=== PATIENT | female | born 1985 | race Caucasian/White ===

== ENCOUNTER 2017-02-13 18:38 | Inpatient (IN) | payer BC ==
[~2017-02-13] VITALS: Ht 160 cm; Wt 91.7 kg
[~2017-02-13 18:38] MED LIST: AGM875T PO; ALBU0.632 IH; ALBU8.5H2 IH; B12; BUTA1CAP39 PO; CA C1TAB75 PO; CALC-69 PO; CEFD300C3 PO; CNC1KV IM; CYAN100021 PO; CYCL10TA9 PO; GABA600T2 PO; HYDR-757 PO; MEDR10TA PO; MULT-974 PO; OMG1KC; POTA99TA15 PO; PRD20T PO; SLMFT1E; TRIA16.5 NS; TRM50T PO; Tramadol; [UNRECOGNIZED DRUG - OTHER]; anti anxiety; potassium
[2017-02-13 20:45] VITALS: BP 126/80
[2017-02-13] MEDS ORDERED: LORazepam INJ 2 MG/ML (ATIVAN) VIAL IVP PRN (21:15)
[2017-02-13] MEDS ORDERED: D5 NS W/KCL 20 MEQ/L 1,000 ML IV ONE (21:46)
[2017-02-13] MEDS: D5 NS W/KCL 20 MEQ/L 1,000 ML IV SCH (22:03)
[2017-02-13] MEDS: HYDROmorphone (DILAUDID) 2 MG/ML VIAL IVP PRN (22:04)
[2017-02-13] MEDS: ONDANSETRON 4 MG/2 ML (SDV) Z0FRAN IVP PRN (22:04)
[2017-02-13] MEDS ORDERED: RT-ALBUTEROL SULF 2.5 MG/3 ML PRE-MIX VIAL IH PRN (22:15)
[2017-02-14] VITALS: BP 110/76
[2017-02-14] MEDS ORDERED: OMEP20TA33 PO ×2 (01:05)
[2017-02-14] MEDS ORDERED: DULO30CA3 PO (01:05)
[2017-02-14] MEDS ORDERED: TOLT2TAB5 PO (01:05)
[2017-02-14] MEDS ORDERED: RT-ALBUINH IH (01:05)
[2017-02-14] MEDS ORDERED: GABA800T2 PO (01:05)
[2017-02-14] MEDS ORDERED: ALPR1TAB2 PO (01:05)
[2017-02-14] MEDS ORDERED: OXYC10TA85 PO ×2 (01:05→13:56)
[2017-02-14] MEDS ORDERED: FLUT1DIS26 IH (01:05)
[2017-02-14] MEDS: RT-ALBUTEROL SULF 2.5 MG/3 ML PRE-MIX VIAL IH SCH ×4 (01:31→14:29)
[2017-02-14] MEDS: HYDROmorphone (DILAUDID) 2 MG/ML VIAL IVP PRN (02:21)
[2017-02-14 04:00] VITALS: BP 114/62
[2017-02-14] MEDS: D5 NS W/KCL 20 MEQ/L 1,000 ML IV SCH ×2 (05:07→11:39)
[2017-02-14 05:18] LABS: BASOPHILS % (AUTO) 0 % (0-10); EOSINOPHILS # (AUTO) 0.8 10^3/uL (0.0-0.3); EOSINOPHILS % (AUTO) 13 % (0-10); LYMPHOCYTES # (AUTO) 1.5 X 10^3 (1.0-4.0); LYMPHOCYTES % (AUTO) 25 % (12-44); MEAN CORPUSCULAR HEMOGLOBIN 28 PG (25-34); MEAN CORPUSCULAR HGB CONC 30 G/DL (32-36); MEAN CORPUSCULAR VOLUME 91 FL (80-99); MEAN PLATELET VOLUME 9.5 FL (7.4-10.4); MONOCYTES # (AUTO) 0.4 X 10^3 (0.0-1.0); MONOCYTES % (AUTO) 7 % (0-12); NEUTROPHILS # (AUTO) 3.3 X 10^3 (1.8-7.8); NEUTROPHILS % (AUTO) 55 % (42-75); PLATELET COUNT 302 10^3/uL (130-400); RED BLOOD COUNT 3.95 10^6/uL (4.35-5.85); RED CELL DISTRIBUTION WIDTH 15.1 % (10.0-14.5)
[2017-02-14 05:41] LABS: ALANINE AMINOTRANSFERASE 23 U/L (0-55); ALBUMIN 3.7 GM/DL (3.2-4.5); ANION GAP 9 MMOL/L (5-14); ASPARTATE AMINO TRANSFERASE 26 U/L (5-34); BILIRUBIN,TOTAL 0.6 MG/DL (0.1-1.0); BLOOD UREA NITROGEN 7 MG/DL (7-18); BUN/CREATININE RATIO 9; CALCIUM 9.3 MG/DL (8.5-10.1); CARBON DIOXIDE 26 MMOL/L (21-32); CHLORIDE 108 MMOL/L (98-107); CREATININE SERUM 0.74 MG/DL (0.60-1.30); GFR ESTIMATED > 60; GLUCOSE 99 MG/DL (70-105); POTASSIUM 4.3 MMOL/L (3.6-5.0); SODIUM 143 MMOL/L (135-145); TOTAL PROTEIN 6.5 GM/DL (6.4-8.2)
[2017-02-14 08:00] VITALS: BP 120/78
[2017-02-14] MEDS ORDERED: RT-ADVAIR HFA 115/21 MCG PER PUFF IH SCH (08:00)
[2017-02-14] MEDS: ONDANSETRON 4 MG/2 ML (SDV) Z0FRAN IVP PRN (08:34)
--- NOTE | 2017-02-14 08:41 | History & Physical-Hospitalist ---
HPI History of Present Illness: HPI/Chief Complaint Ms. Samuel is a 31-year-old white female who states that she had not had a bowel movement in 2 weeks which is unusual for her. 4 days ago she then developed cramping mostly right upper quadrant abdominal pain. It got progressively worse with increasing abdominal distention causing her to present to the [facility] emergency room. There KUB reportedly revealed multiple dilated distended loops of bowel with air fluid levels suspicious for small bowel obstruction. They did not have surgical coverage this weekend so I was contacted and accepted the patient in transfer. An NG tube was placed to low intermittent suction and over the night patient reports she had 4 bowel movements with resolution of distention. She also has not had any abdominal pain for the past 4 hours for reports a severe throbbing right sided headache compatible with the usual migraine that she gets without aura. She blames this on Dilaudid and reports that Fioricet is only thing that takes care of her migraine headaches. She's had no past history of bowel obstruction but does have a past history of total abdominal hysterectomy last year 3 C-sections and some form of gastric surgery for weight loss. She denies chills or fever complaining about her headache and throat irritation from her NG tube. Date Seen 02/14/17 Time Seen by Provider: 07:00 Attending Physician Theodore Doan MD PCP Onel Villra MD Referring Physician Date of Admission Feb 13, 2017 at 20:47 Home Medications & Allergies Home Medications Reviewed patient Home Medication Reconciliation Form Allergies Allergies Coded Allergies latex (Unverified Allergy, Mild, HIVES, 10/06/10) NSAIDS (Non-Steroidal Anti-Inflamma (Verified Allergy, Unknown, 04/26/15) Past Mbgrhcp-Sevwjw-Qkptcq Hx Patient Social History Alcohol Use: Denies Use Recreational Drug Use: No Smoking Status: Former Smoker Physical Abuse Screen: No Sexual Abuse: No Recent Foreign Travel: No Contact w/other who traveled: No Recent Infectious Disease Expo: No Immunizations Up To Date Tetanus Booster (TDap): Less than 5yrs Date of Pneumonia Vaccine: Apr 21, 2016 Date of Influenza Vaccine: Feb 19, 2014 Seasonal Allergies Seasonal Allergies: No Surgeries Yes (GASTRIC BYPASS, D&C, x 3) Abdominal, Section, Gallbladder, Tubal Ligation Respiratory Yes Currently Using BIPAP: No Cardiovascular No Neurological Yes (water on the brain at ) Headaches /Migraines Reproductive System Hx Reproductive Disorders: No Female Reproductive Disorders: Menstrual Problems Genitourinary No Gastrointestinal Yes (GASTRIC BYPASS) Irritable Bowel Musculoskeletal Yes (age 12 back pain began) Degenerate Disk Disease, Chronic Back Pain Endocrine History of Endocrine Disorders: No HEENT History of HEENT Disorders: No Cancer No Psychosocial History of Psychiatric Problem: Yes Behavioral Health Disorders: Anxiety, PTSD Integumentary History of Skin or Integumenta: No Blood Transfusions History of Blood Disorders: No Adverse Reaction to a Blood Tr: No Family Medical History Significant Family History: No Pertinent Family Hx Review of Systems Constitutional: see HPI Respiratory: no symptoms reported, No see HPI, No cough, No dyspnea on exertion , No hemoptysis, No orthopnea, No phlegm, No short of breath Gastrointestinal: see HPI, abdominal pain (RUQ), constipation, loss of appetite : No Physical Exam Physical Exam Vital Signs Vital Sign - Last 12Hours 02/13/17 02/14/17 20:45 01:31 Temp 97.9 Pulse 90 Resp 20 B/P (MAP) 126/80 Pulse Ox 98 O2 Delivery Room Air O2 Flow Rate 3.00 Capillary Refill : General Appearance: Mild Distress, Obese HEENT: PERRL/EOMI, Normal ENT Inspection Neck: Full Range of Motion, Normal Inspection, Non Tender, Supple Respiratory: Chest Non Tender, Lungs Clear, Normal Breath Sounds, No Accessory Muscle Use, No Respiratory Distress Cardiovascular: Regular Rate, Rhythm, No Edema, No Gallop, No JVD, No Murmur, Normal Peripheral Pulses Gastrointestinal: Normal Bowel Sounds, No Organomegaly, No Pulsatile Mass, Non Tender, Soft Neurologic/Psychiatric: Alert, Oriented x3, No Motor/Sensory Deficits Skin: Pallor Results Results/Procedures Lab Laboratory Tests 02/14/17 04:47 Assessment/Plan Admission Diagnosis 1. Presumed small bowel obstruction resolved this morning with an unremarkable abdominal examination with the patient passing stool. Will DC NG tube and advance to clear liquids and then as tolerated. 2. Acute migraine headache we'll give the patient Fioricet and DC Dilauded in addition to a dose of IV Zofran now. Clinical Quality Measures DVT/VTE Risk/Contraindication: Risk Factor Score Per Nursin RFS Level Per Nursing on Admit: 1=Low/No VTE PPX THEODORE DOAN MD Feb 14, 2017 08:41
[2017-02-14] MEDS ORDERED: fentaNYL INJECTION 100 MCG/2 ML AMP IVP PRN (08:45)
[2017-02-14] MEDS: ACET/BUTAL/CAFF (FIORICET) TAB PO PRN ×2 (09:44→14:26)
--- NOTE | 2017-02-14 11:21 | Diagnostic Imaging Report ---
INDICATION: Bowel obstruction. Followup. FINDINGS: The upright chest shows normal heart size. There is bibasilar discoid atelectasis. Supine and upright views of the abdomen shows air-filled loops of nondilated large and small bowel in a nonspecific nonobstructive pattern. No intramural or free intraperitoneal air is seen. No mass or calculus is seen. There is no bony abnormality. IMPRESSION: The bowel gas pattern is consistent with a mild ileus. There is bibasilar discoid atelectasis. Dictated by: Dictated on workstation # [id number]
--- NOTE | 2017-02-14 11:55 | Consultation ---
History of Present Illness History of Present Illness Patient Consulted On(sabina/time) 02/14/17 11:50 Time Seen by Provider: 10:51 History of Present Illness Surgery asked to consult regarding PSBO. HPI: Patient is a 31-year-old white female who was transferred from outside hospital with chief complaint of no bowel movement in 2 weeks; which is unusual for her. Then 4 days ago she developed cramping mostly right upper quadrant abdominal pain. It got progressively worse with increasing abdominal distention and vomiting; causing her to go to the [place] emergency room. Physicians there read KUB as - revealing multiple dilated distended loops of bowel with air fluid levels suspicious for small bowel obstruction. They did not have surgical coverage so Hospitalist accepted the patient in transfer. An NG tube was placed to low intermittent suction and over the night patient reports "I was in the bathroom all night going"; now with resolution of distention. She also has not had any abdominal pain since somewhere around 4 or 5 am. NGT was D/C'd prior to me seeing her. Per Medicine: She does complain of a severe throbbing right sided headache compatible with the usual migraine that she gets without aura. She blames this on Dilaudid and reports that Fioricet is only thing that takes care of her migraine headaches. She's had no past history of bowel obstruction but does have a past history of total abdominal hysterectomy last year 3 C-sections and some form of gastric surgery for weight loss. She denies chills or fever complaining about her headache and throat irritation from her NG tube. Allergies and Home Medications Allergies Coded Allergies: latex (Unverified Allergy, Mild, HIVES, 10/06/10) NSAIDS (Non-Steroidal Anti-Inflamma (Verified Allergy, Unknown, 04/26/15) Home Medications Albuterol Sulfate 1 Puff Puff, 1 PUFF IH Q4H, (Reported) 1 PUFF = 90 MCG Alprazolam 1 Mg Tablet, 1 MG PO TID, (Reported) Duloxetine HCl 30 Mg Capsule.dr, 30 MG PO DAILY, (Reported) Fluticasone/Salmeterol 1 Each Blst.w.dev, 2 EACH IH BID, (Reported) Gabapentin 800 Mg Tablet, 800 MG PO TID, (Reported) Omeprazole Magnesium 20 Mg Tablet.dr, 20 MG PO DAILY, (Reported) Omeprazole Magnesium 20 Mg Tablet.dr, 20 MG PO DAILY, (Reported) Oxycodone HCl 10 Mg Tab.er.12h, 10 MG PO BID, (Reported) Tolterodine Tartrate 2 Mg Tablet, 2 MG PO HS, (Reported) Past Vjhbllr-Ksyfgv-Osfuyn Hx Patient Social History Alcohol Use: Denies Use Recreational Drug Use: No Smoking Status: Former Smoker Recent Foreign Travel: No Contact w/Someone Who Travel: No Recent Infectious Disease Expo: No Physical Abuse Screen: No Sexual Abuse: No Immunizations Up To Date Tetanus Booster (TDap): Less than 5yrs Date of Pneumonia Vaccine: Apr 21, 2016 Date of Influenza Vaccine: Feb 19, 2014 Seasonal Allergies Seasonal Allergies: No Surgeries History of Surgeries: Yes (GASTRIC BYPASS, D&C, x 3) Surgeries: Abdominal, Section, Gallbladder, Tubal Ligation Respiratory History of Respiratory Disorde: Yes Respiratory Disorders: Asthma, COPD Cardiovascular History of Cardiac Disorders: No Neurological History of Neurological Disord: Yes (water on the brain at ) Neurological Disorders: Headaches /Migraines Reproductive System Hx Reproductive Disorders: No Female Reproductive Disorders: Menstrual Problems Genitourinary History of Genitourinary Disor: No Gastrointestinal History of Gastrointestinal Di: Yes (GASTRIC BYPASS) Gastrointestinal Disorders: Irritable Bowel Musculoskeletal History of Musculoskeletal Dis: Yes (age 12 back pain began) Musculoskeletal Disorders: Degenerate Disk Disease, Chronic Back Pain Endocrine History of Endocrine Disorders: No HEENT History of HEENT Disorders: No Cancer History of Cancer: No Psychosocial History of Psychiatric Problem: Yes Behavioral Health Disorders: Anxiety, PTSD Integumentary History of Skin or Integumenta: No Blood Transfusions History of Blood Disorders: No Adverse Reaction to a Blood Tr: No Family Medical History Significant Family History: CAD Under 55 Years Old (father), Other Conditions/ Hx (other family members with Gallbladder disease) Review of Systems-General Constitutional: No chills, No fever, malaise, weight loss EENTM: No blurred vision, No dental problems, No epistaxis, No throat swelling Respiratory: No cough, No dyspnea on exertion, No hemoptysis Cardiovascular: No chest pain, No edema, No palpitations Gastrointestinal: RUQ, abdominal pain, constipation, nausea, vomiting Genitourinary: No dysuria, No frequency, No hematuria Musculoskeletal: back pain, joint pain, joint swelling, muscle stiffness, muscle cramps Skin: No change in color, No change in hair/nails Psychiatric/Neurological: Anxiety, Depressed, Emotional Problems, Headache, Denies Seizure, Denies Weakness Other pt denies any abnormal bruising or bleeding. Physical Exam-General Problems Physical Exam Vital Signs Vital Sign - Last 12Hours 02/13/17 02/14/17 20:45 01:31 Temp 97.9 Pulse 90 Resp 20 B/P (MAP) 126/80 Pulse Ox 98 O2 Delivery Room Air O2 Flow Rate 3.00 Capillary Refill : General Appearance: WD/WN, no apparent distress Eyes: Bilateral Eye PERRL, Bilateral Eye EOMI HEENT: pharynx normal, No scleral icterus (R), No scleral icterus (L) Neck: non-tender, full range of motion, supple Respiratory: chest non-tender, lungs clear, normal breath sounds, no respiratory distress, no accessory muscle use Cardiovascular: regular rate, rhythm, no edema, no murmur Gastrointestinal: normal bowel sounds, non tender, soft, no organomegaly, no pulsatile mass Rectal: deferred Back: no CVA tenderness, no vertebral tenderness Extremities: no pedal edema, no calf tenderness Neurologic/Psychiatric: confectionery cooker II-XII nml as tested, no motor/sensory deficits, alert, normal mood/affect, oriented x 3 Skin: normal color, warm/dry Lymphatic: no adenopathy (neck, axilla or groin) Data Review Labs Laboratory Tests 02/14/17 04:47: White Blood Count 6.0, Red Blood Count 3.95L, Hemoglobin 10.9L, Hematocrit 36, Mean Corpuscular Volume 91, Mean Corpuscular Hemoglobin 28, Mean Corpuscular Hemoglobin Concent 30L, Red Cell Distribution Width 15.1H, Platelet Count 302, Mean Platelet Volume 9.5, Neutrophils (%) (Auto) 55, Lymphocytes (%) (Auto) 25, Monocytes (%) (Auto) 7, Eosinophils (%) (Auto) 13H, Basophils (%) (Auto) 0, Neutrophils # (Auto) 3.3, Lymphocytes # (Auto) 1.5, Monocytes # (Auto) 0.4, Eosinophils # (Auto) 0.8H, Basophils # (Auto) 0.0, Sodium Level 143, Potassium Level 4.3, Chloride Level 108H, Carbon Dioxide Level 26, Anion Gap 9, Blood Urea Nitrogen 7, Creatinine 0.74, Estimat Glomerular Filtration Rate > 60, BUN/ Creatinine Ratio 9, Glucose Level 99, Calcium Level 9.3, Total Bilirubin 0.6, Aspartate Amino Transf (AST/SGOT) 26, Alanine Aminotransferase (ALT/SGPT) 23, Alkaline Phosphatase 68, Total Protein 6.5, Albumin 3.7 Assessment/Plan Assessment/Plan Assessment/Plan PSBO - now completely resolved. NGT has already been removed and she has been taking in a lot of clear liquids already. Ok to DC home from surgery perspective. No need to repeat AAS. Follow up as outpt with her primary doctor in [place]. She had no questions. Clinical Quality Measures DVT/VTE Risk/Contraindication: Risk Factor Score Per Nursin RFS Level Per Nursing on Admit: 1=Low/No VTE PPX FRANCI COWAN DO Feb 14, 2017 11:55
[2017-02-14 12:00] VITALS: BP 120/82
[2017-02-14] MEDS ORDERED: ALPR1TAB7 PO (13:52)
[2017-02-14] MEDS ORDERED: MV,C1TAB35 PO (13:52)
[2017-02-14] MEDS ORDERED: HYDR-3812 PO (13:52)
[2017-02-14] MEDS ORDERED: BUTA1CAP41 PO (13:52)
[2017-02-14] MEDS ORDERED: DULO30CA48 PO (13:52)
[2017-02-14] MEDS ORDERED: MV M PO (13:52)
[2017-02-14] MEDS ORDERED: CALC-962 PO (13:52)
[2017-02-14] MEDS ORDERED: CYCL10TA9 PO (13:52)
[2017-02-14] MEDS ORDERED: POLY119P5 PO (13:58)
--- OUTSIDE RECORDS SUMMARY | 2017-02-15 10:31 | XMS REPORT ---
Author AMINATA Henning [facility] eClinicalWorks Address Unknown Phone Unavailable Care Team Providers Care Die Designer Apprentice Name Role Phone AMINTAA GRIDER CP Unavailable Allergies No Known Allergies Problems Problem Type Condition Code Onset Dates Condition Status Assessment Dental examination Z01.20 Active Problem Unspecified asthma J45.909 Active Problem History of bariatric surgery Z98.84 Active Problem Adjustment disorder with anxiety F43.22 Active Problem Nonspecific abdominal pain R10.9 Active Problem Neuralgia and neuritis M79.2 Active Problem Lumbago M54.5 Active Problem Myalgia M79.1 Active Medications No Known Medications Procedures Procedure Coding System Code Date INTRAORL-PERIAPICAL 1 FILM 17379 CPT-4 D0220 Jan 29, 2016 BITEWINGS - FOUR FILMS CPT-4 D0274 Jan 29, 2016 COMP ORAL EVALUATION - NEW/EST PT CPT-4 D0150 Jan 29, 2016 PANORAMIC FILM SEE ALSO CODE 35521 CPT-4 D0330 Jan 29, 2016 Results No Known Results Summary Purpose eClinicalWorks Submission
--- OUTSIDE RECORDS SUMMARY | 2017-02-15 10:31 | XMS REPORT ---
Author MARGE Frazier [facility] eClinicalWorks Address Unknown Phone Unavailable Care Team Providers Care Flooring Machine Operator Name Role Phone MARGE GALLOWAY CP Unavailable Allergies, Adverse Reactions, Alerts Substance Reaction Event Type Ibuprofen Cannot have NSAIDS Drug Allergy Combivent Info Not Available Drug Allergy Latex Info Not Available Non Drug Allergy Problems Problem Type Condition Code Onset Dates Condition Status Assessment Sinusitis J32.9 Active Assessment Bronchitis J40 Active Problem Unspecified asthma J45.909 Active Problem History of bariatric surgery Z98.84 Active Problem Adjustment disorder with anxiety F43.22 Active Problem Nonspecific abdominal pain R10.9 Active Problem Neuralgia and neuritis M79.2 Active Problem Lumbago M54.5 Active Problem Myalgia M79.1 Active Medications Medication Code System Code Instructions Start Date End Date Status Dosage Provera [facility] [address]-05 5 MG Orally Once a day 1 tablet Ferrous Sulfate [facility] [address]-22 325 (65 Fe) MG Orally Once a day Jun 26, 2015 1 tablet Advair Diskus [facility] [address]-52 250-50 mcg/dose Jul 26, 2014 inhale 1 puff by Inhalation route in the morning and evening 2 times per day approximately 12 hours apart rinse mouth and spit after use Neurontin [facility] [address]-03 400 MG Orally Three times a day Jul 30, 2014 1 capsule Albuterol Sulfate [facility] [address]-58 1.25 mg/3 mL November 20, 2013 1 Inhalant by Inhalation route every 4 hours Doxycycline Hyclate [facility] [address]-44 100 MG Orally Twice a day October 07, 2015 October 17, 2015 1 capsule ProAir HFA [facility] [address]-44 108 (90 Base) MCG/ACT Inhalation every 4 hrs 2 puffs as needed Cetirizine HCl [facility] [address]-16 10 mg Orally Once a day September 27, 2015 1 tablet as needed Multiple Vitamins [facility] [address]229 Jul 27, 2013 2 Tablet by Oral route 1 time per day women's one a day Sudafed [facility] [address]-36 60 mg Orally every 6 hrs October 07, 2015 1 tablet as needed Calcium Citrate [facility] [address]34 250 mg calcium Jul 27, 2013 2 Tablet by Oral route 2 times per day Ca 600 mg Procedures Procedure Coding System Code Date Office Visit, Est Pt., Level 2 CPT-4 52352 October 07, 2015 Vital Signs Date/Time: October 07, 2015 Temperature 98.6 F Weight 200.4 lbs Height 63 in BMI 35.50 Index Blood Pressure Diastolic 76 mmHg Blood Pressure Systolic 110 mmHg Cardiac Monitoring Heart Rate 88 bpm Results No Known Results Summary Purpose eClinicalWorks Submission
--- OUTSIDE RECORDS SUMMARY | 2017-02-15 10:31 | XMS REPORT ---
Author Author EDWIN GONZALEZ eClinicalWorks Address Unknown Phone Unavailable Care Team Providers Care Alb[place] Fishing Boat Crewman Name Role Phone EDWIN GONZALEZ CP Unavailable Allergies, Adverse Reactions, Alerts Substance Reaction Event Type Ibuprofen Cannot have NSAIDS Drug Allergy Combivent Info Not Available Drug Allergy Latex Info Not Available Non Drug Allergy Problems Problem Type Condition Code Onset Dates Condition Status Problem Unspecified neuralgia, neuritis, and radiculitis 729.2 Active Assessment Dental examination Z01.20 Active Problem Acute sinusitis, unspecified 461.9 Active Problem Unspecified disorder of the teeth and supporting structures 525.9 Active Problem Asthma, unspecified, with (acute) exacerbation 493.92 Active Problem Unspecified myalgia and myositis 729.1 Active Problem Abdominal pain, unspecified site 789.00 Active Problem Bariatric surgery status V45.86 Active Problem Lumbago 724.2 Active Medications Medication Code System Code Instructions Start Date End Date Status Dosage Amoxicillin [facility] [address]-37 500 MG Orally Three times a day 1 capsule Multiple Vitamins [facility] [address] Jul 27, 2013 2 Tablet by Oral route 1 time per day women's one a day Calcium Citrate [facility] [address]-84534 250 mg calcium Jul 27, 2013 2 Tablet by Oral route 2 times per day Ca 600 mg Albuterol Sulfate [facility] [address]-81 1.25 mg/3 mL November 20, 2013 1 Inhalant by Inhalation route every 4 hours Advair Diskus [facility] [address]-53 250-50 mcg/dose Jul 26, 2014 inhale 1 puff by Inhalation route in the morning and evening 2 times per day approximately 12 hours apart rinse mouth and spit after use ProAir HFA [facility] [address]-49 108 (90 Base) MCG/ACT Inhalation every 4 hrs 2 puffs as needed Bruin [facility] [address]-17 5-325 MG Orally every 6 hrs 1 tablet as needed Procedures Procedure Coding System Code Date INTRAORL-PERIAPICAL 1 FILM 03859 CPT-4 D0220 Jun 19, 2015 BITEWING - SINGLE FILM CPT-4 D0270 Jun 19, 2015 LTD ORAL EVALUATION - PROBLEM FOCUS CPT-4 D0140 Jun 19, 2015 Vital Signs Date/Time: Jun 19, 2015 Blood Pressure Diastolic 66 mmHg Blood Pressure Systolic 91 mmHg Results No Known Results Summary Purpose eClinicalWorks Submission
--- OUTSIDE RECORDS SUMMARY | 2017-02-15 10:31 | XMS REPORT ---
Author Author MARGE GALLOWAY Organization eClinicalWorks Address Unknown Phone Unavailable Care Team Providers Care Carpenter Bridge Name Role Phone MARGE GALLOWAY CP Unavailable Allergies No Known Allergies Problems Problem Type Condition Code Onset Dates Condition Status Problem Unspecified asthma J45.909 Active Problem History of bariatric surgery Z98.84 Active Problem Adjustment disorder with anxiety F43.22 Active Problem Nonspecific abdominal pain R10.9 Active Problem Neuralgia and neuritis M79.2 Active Problem Lumbago M54.5 Active Problem Myalgia M79.1 Active Medications No Known Medications Results No Known Results Summary Purpose eClinicalWorks Submission
--- OUTSIDE RECORDS SUMMARY | 2017-02-15 10:31 | XMS REPORT ---
Author Author JESUS HINDS [facility] eClinicalWorks Address Unknown Phone Unavailable Care Team Providers Care Room Service Manager Name Role Phone JESUS HINDS CP Unavailable Allergies No Known Allergies Problems Problem Type Condition Code Onset Dates Condition Status Problem History of bariatric surgery Z98.84 Active Problem Lumbago M54.5 Active Problem Unspecified asthma J45.909 Active Problem Neuralgia and neuritis M79.2 Active Problem Myalgia M79.1 Active Problem Nonspecific abdominal pain R10.9 Active Medications No Known Medications Results No Known Results Summary Purpose eClinicalWorks Submission
--- OUTSIDE RECORDS SUMMARY | 2017-02-15 10:31 | XMS REPORT ---
Author Author BRENTON LAWSON Organization eClinicalWorks Address Unknown Phone Unavailable Care Team Providers Care Shoe Repair Cobbler Name Role Phone BRENTON LAWSON CP Unavailable Allergies, Adverse Reactions, Alerts Substance Reaction Event Type Ibuprofen Cannot have NSAIDS Drug Allergy Combivent Info Not Available Drug Allergy Latex Info Not Available Non Drug Allergy Problems Problem Type Condition Code Onset Dates Condition Status Assessment Unspecified asthma J45.909 Active Problem History of bariatric surgery Z98.84 Active Problem Lumbago M54.5 Active Problem Unspecified asthma J45.909 Active Problem Neuralgia and neuritis M79.2 Active Assessment Allergic rhinitis J30.9 Active Problem Myalgia M79.1 Active Problem Nonspecific abdominal pain R10.9 Active Medications Medication Code System Code Instructions Start Date End Date Status Dosage Advair Diskus [facility] [address]-62 250-50 mcg/dose Jul 26, 2014 inhale 1 puff by Inhalation route in the morning and evening 2 times per day approximately 12 hours apart rinse mouth and spit after use Neurontin [facility] [address]-48 400 MG Orally Three times a day Jul 30, 2014 1 capsule Multiple Vitamins [facility] [address] Jul 27, 2013 2 Tablet by Oral route 1 time per day women's one a day Albuterol Sulfate [facility] [address]-98 1.25 mg/3 mL November 20, 2013 1 Inhalant by Inhalation route every 4 hours Calcium Citrate [facility] [address]10-[address]13 250 mg calcium Jul 27, 2013 2 Tablet by Oral route 2 times per day Ca 600 mg Iron [facility] [address]-83 not defined Ferrous Sulfate [facility] [address]-31 325 (65 Fe) MG Orally Once a day Jun 26, 2015 1 tablet Cetirizine HCl [facility] [address]-19 10 mg Orally Once a day September 27, 2015 1 tablet as needed ProAir HFA [facility] [address]-00 108 (90 Base) MCG/ACT Inhalation every 4 hrs 2 puffs as needed Procedures Procedure Coding System Code Date Office Visit, Est Pt., Level 3 CPT-4 34540 September 27, 2015 MEASURE BLOOD OXYGEN LEVEL CPT-4 93631 September 27, 2015 Vital Signs Date/Time: September 27, 2015 Temperature 98.6 F Weight 194.7 lbs Height 63 in Oximetry 99 % Blood Pressure Diastolic 70 mmHg Blood Pressure Systolic 116 mmHg Cardiac Monitoring Heart Rate 92 bpm BMI 34.49 Index Results No Known Results Summary Purpose eClinicalWorks Submission
--- OUTSIDE RECORDS SUMMARY | 2017-02-15 10:31 | XMS REPORT ---
Author Author EDWIN GONZALEZ eClinicalWorks Address Unknown Phone Unavailable Care Team Providers Care Clinical Quality Assurance Specialist Name Role Phone EDWIN GONZALEZ CP Unavailable Allergies, Adverse Reactions, Alerts Substance Reaction Event Type Ibuprofen Cannot have NSAIDS Drug Allergy Combivent Info Not Available Drug Allergy Latex Info Not Available Non Drug Allergy Problems Problem Type Condition Code Onset Dates Condition Status Assessment Dental caries K02.9 Active Problem History of bariatric surgery Z98.84 Active Problem Lumbago M54.5 Active Problem Unspecified asthma J45.909 Active Problem Neuralgia and neuritis M79.2 Active Assessment Encounter for dental examination Z01.20 Active Problem Myalgia M79.1 Active Problem Nonspecific abdominal pain R10.9 Active Medications Medication Code System Code Instructions Start Date End Date Status Dosage Multiple Vitamins [facility] [address] Jul 27, 2013 2 Tablet by Oral route 1 time per day women's one a day [place] [facility] [address]-51 5-325 MG Orally every 6 hrs 1 tablet as needed Ferrous Sulfate [facility] [address]-02 325 (65 Fe) MG Orally Once a day Jun 26, 2015 1 tablet Albuterol Sulfate [facility] [address]-90 1.25 mg/3 mL November 20, 2013 1 Inhalant by Inhalation route every 4 hours Calcium Citrate [facility] [address] 250 mg calcium Jul 27, 2013 2 Tablet by Oral route 2 times per day Ca 600 mg Iron [facility] [address]-76 not defined Advair Diskus [facility] [address]-60 250-50 mcg/dose Jul 26, 2014 inhale 1 puff by Inhalation route in the morning and evening 2 times per day approximately 12 hours apart rinse mouth and spit after use ProAir HFA [facility] [address]-71 108 (90 Base) MCG/ACT Inhalation every 4 hrs 2 puffs as needed Procedures Procedure Coding System Code Date EXTRAC ERUPTED TOOTH/EXPOSED ROOT CPT-4 D7140 Jun 19, 2015 Vital Signs Date/Time: Jun 26, 2015 Blood Pressure Diastolic 68 mmHg Blood Pressure Systolic 110 mmHg Results No Known Results Summary Purpose eClinicalWorks Submission
--- OUTSIDE RECORDS SUMMARY | 2017-02-15 10:32 | XMS REPORT ---
Author MARGE Frazier [facility] eClinicalWorks Address Unknown Phone Unavailable Care Team Providers Care Doctor Osteopathic Name Role Phone MARGE GALLOWAY CP Unavailable Allergies, Adverse Reactions, Alerts Substance Reaction Event Type Ibuprofen Cannot have NSAIDS Drug Allergy Combivent Info Not Available Drug Allergy Latex Info Not Available Non Drug Allergy Problems Problem Type Condition ICD-9 Code Onset Dates Condition Status Assessment Asthma, unspecified, with (acute) exacerbation 493.92 Active Problem Unspecified neuralgia, neuritis, and radiculitis 729.2 Active Assessment Laryngitis 464.00 Active Problem Acute sinusitis, unspecified 461.9 Active Problem Unspecified disorder of the teeth and supporting structures 525.9 Active Problem Asthma, unspecified, with (acute) exacerbation 493.92 Active Problem Unspecified myalgia and myositis 729.1 Active Problem Abdominal pain, unspecified site 789.00 Active Problem Bariatric surgery status V45.86 Active Problem Lumbago 724.2 Active Medications Medication Code System Code Instructions Start Date End Date Status Dosage Neurontin [facility] [address]-22 400 MG Orally Three times a day Jul 30, 2014 1 capsule Cyclobenzaprine HCl [facility] [address]-41 10 MG Orally Three times a day Jan 1 tablet Ferrous Sulfate [facility] [address]-36 325 mg (65 mg iron) Jul 27, 2013 1 Tablet by Oral route 1 time per day Albuterol Sulfate [facility] [address]-93 1.25 mg/3 mL November 20, 2013 1 Inhalant by Inhalation route every 4 hours Hydrocodone-Acetaminophen [facility] [address]-49 5-325 MG Orally every 6 hrs Jan 28, 2015 1 tablet as needed tramadol [facility] 0 50 mg Jul 26, 2014 take 1 tablet by Oral route every 6 hours as needed PRN pain, must be seen for more refills ProAir HFA [facility] [address]-62 108 (90 Base) MCG/ACT Inhalation every 4 hrs 2 puffs as needed Advair Diskus [facility] [address]-31 250-50 mcg/dose Jul 26, 2014 inhale 1 puff by Inhalation route in the morning and evening 2 times per day approximately 12 hours apart rinse mouth and spit after use Potassium Gluconate [facility] [address] 550 mg (90 mg) Jul 27, 2013 1 Tablet by Oral route 1 time per day Multiple Vitamins [facility] [address] Jul 27, 2013 2 Tablet by Oral route 1 time per day women's one a day Sudafed [facility] [address]-62 60 Orally every 6 hrs Feb 26, 2015 1 tablet as needed PredniSONE [facility] [address]-66 20 MG Orally Once a day Feb 26, 2015 2 Calcium Citrate [facility] [address] 250 mg calcium Jul 27, 2013 2 Tablet by Oral route 2 times per day Ca 600 mg Vitamin B-12 [facility] [address]-54 250 mcg Jul 27, 2013 1 Tablet by Oral route 1 time per day Procedures Procedure Coding System Code Date Office Visit, Est Pt., Level 3 CPT-4 57283 Feb 26, 2015 Vital Signs Date/Time: Feb 26, 2015 Temperature 98.9 F Weight 198.9 lbs Height 63 in BMI 35.23 Index Blood Pressure Diastolic 72 mmHg Blood Pressure Systolic 98 mmHg Cardiac Monitoring Heart Rate 92 bpm Results No Known Results Summary Purpose eClinicalWorks Submission
--- OUTSIDE RECORDS SUMMARY | 2017-02-15 10:32 | XMS REPORT ---
Author Author JESUS HINDS [facility] eClinicalWorks Address Unknown Phone Unavailable Care Team Providers Care Drag Car Racer Name Role Phone JESUS HINDS Unavailable Allergies, Adverse Reactions, Alerts Substance Reaction Event Type Ibuprofen Cannot have NSAIDS Drug Allergy Combivent Info Not Available Drug Allergy Latex Info Not Available Non Drug Allergy Problems Problem Type Condition Code Onset Dates Condition Status Assessment Bilateral headaches R51 Active Assessment Lightheaded R42 Active Assessment Enlarged uterus N85.2 Active Problem History of bariatric surgery Z98.84 Active Problem Lumbago M54.5 Active Problem Unspecified asthma J45.909 Active Problem Neuralgia and neuritis M79.2 Active Assessment Episode of heavy vaginal bleeding N93.9 Active Problem Myalgia M79.1 Active Problem Nonspecific abdominal pain R10.9 Active Assessment Dyspareunia N94.1 Active Assessment Screening for malignant neoplasm of cervix Z12.4 Active Assessment Routine screening for STI (sexually transmitted infection) Z11.3 Active Medications Medication Code System Code Instructions Start Date End Date Status Dosage Ferrous Sulfate [facility] [address]-51 325 (65 Fe) MG Orally Once a day Jun 26, 2015 1 tablet [place] [facility] [address]-30 5-325 MG Orally every 6 hrs 1 tablet as needed Albuterol Sulfate [facility] [address]-98 1.25 mg/3 mL November 20, 2013 1 Inhalant by Inhalation route every 4 hours Calcium Citrate [facility] 94[address]24 250 mg calcium Jul 27, 2013 2 Tablet by Oral route 2 times per day Ca 600 mg Advair Diskus [facility] [address]-40 250-50 mcg/dose Jul 26, 2014 inhale 1 puff by Inhalation route in the morning and evening 2 times per day approximately 12 hours apart rinse mouth and spit after use ProAir HFA [facility] [address]-20 108 (90 Base) MCG/ACT Inhalation every 4 hrs 2 puffs as needed Multiple Vitamins [facility] [address] Jul 27, 2013 2 Tablet by Oral route 1 time per day women's one a day Procedures Procedure Coding System Code Date HEMOGLOBIN CPT-4 21303 Jun 26, 2015 No Charge CPT-4 38714 Jun 26, 2015 COMPLETE CBC W/AUTO DIFF WBC CPT-4 17112 Jun 26, 2015 Office Visit, Est Pt., Level 4 CPT-4 06921 Jun 26, 2015 VENIPUNCT, ROUTINE* CPT-4 50325 Jun 26, 2015 SPECIMEN HANDLING CPT-4 92450 Jun 26, 2015 TRICHOMONAS ASSAY W/OPTIC CPT-4 79582 Jun 26, 2015 ASSAY THYROID STIM HORMONE CPT-4 00742 Jun 26, 2015 URINE TEST CPT-4 51296 Jun 26, 2015 Vital Signs Date/Time: Jun 26, 2015 Temperature 97.6 F Weight 201.6 lbs Height 63 in BMI 35.71 Index Blood Pressure Diastolic 74 mmHg Blood Pressure Systolic 108 mmHg Cardiac Monitoring Heart Rate 80 bpm Results Name Result Date Reference Range Unit Abnormality Flag ROUTINE VENIPUNCTURE HEMOGLOBIN (IN HOUSE) ----HEMOGLOBIN 11.7 [id number] 11.5 - 16 gm/dL ----Lot # [id number] ----Exp date 10/31/201620150626 TEST, URINE (IN HOUSE) ----Exp date [id number] ----Lot # [id number] ----Control + [id number] ----RESULTS negative [id number] Summary Purpose eClinicalWorks Submission
--- OUTSIDE RECORDS SUMMARY | 2017-02-15 10:32 | XMS REPORT | Continuity of Care Document ---
Author Author [facility] Address Unknown Phone Unavailable Allergies Active Description Code Type Severity Reaction Onset Reported/Identified Relationship to Patient Clinical Status Yes latex [id number] Drug Allergy Mild HIVES 10/06/2010 Yes Latex OA N/A N/A 07/27/2013 Yes NSAIDS (Non-Steroidal Anti-Inflamma [id number] Drug Allergy Unknown N/A 04/26/2015 Medications Problems Date Dx Coded Attending Type Code Diagnosis Diagnosed By 10/06/2010 Ot 307.81 10/06/2010 Ot 473.9 10/06/2010 Ot 782.0 10/06/2010 Ot 784.0 08/20/2012 Ot 307.81 08/20/2012 Ot 784.0 02/21/2013 PUSHPA COVARRUBIAS APRN Ot 782.0 02/21/2013 PUSHPA COVARRUBIAS APRN Ot 784.0 07/27/2013 MARGE GALLOWAY MD 525.9 UNSPECIFIED DISORDER OF THE TEETH AND SUPPORTING STRUCTURES 07/27/2013 MARGE GALLOWAY MD V45.86 BARIATRIC SURGERY STATUS 07/27/2013 MARGE GALLOWAY MD 525.9 UNSPECIFIED DISORDER OF THE TEETH AND SUPPORTING STRUCTURES 07/27/2013 MARGE GALLOWAY MD V45.86 BARIATRIC SURGERY STATUS 07/27/2013 LAMBERTO PADGETT APRN 525.9 UNSPECIFIED DISORDER OF THE TEETH AND SUPPORTING STRUCTURES 07/27/2013 LAMBERTO PADGETT APRN V45.86 BARIATRIC SURGERY STATUS 07/27/2013 MARGE GALLOWAY MD.9 UNSPECIFIED DISORDER OF THE TEETH AND SUPPORTING STRUCTURES 07/27/2013 MARGE GALLOWAY MD V45.86 BARIATRIC SURGERY STATUS 07/27/2013 LISA NICHOLAS DDS 525.9 UNSPECIFIED DISORDER OF THE TEETH AND SUPPORTING STRUCTURES 07/27/2013 LISA NICHOLAS DDS V45.86 BARIATRIC SURGERY STATUS 07/27/2013 MARGE GALLOWAY MD 525.9 UNSPECIFIED DISORDER OF THE TEETH AND SUPPORTING STRUCTURES 07/27/2013 MARGE GALLOWAY MD V45.86 BARIATRIC SURGERY STATUS 08/03/2013 VINAYAK BRITTON MD Ot 723.1 08/03/2013 VINAYAK BRITTON MD Ot 784.0 09/18/2013 MARGE GALLOWAY MD 729.2 NEURALGIA NEURITIS AND RADICULITIS UNSPECIFIED 09/18/2013 LAMBERTO PADGETT APRN 729.2 NEURALGIA NEURITIS AND RADICULITIS UNSPECIFIED 09/18/2013 MARGE GALLOWAY MD 729.2 NEURALGIA NEURITIS AND RADICULITIS UNSPECIFIED 09/18/2013 LISA NICHOLAS DDS 729.2 NEURALGIA NEURITIS AND RADICULITIS UNSPECIFIED 09/18/2013 MARGE GALLOWAY MD 729.2 NEURALGIA NEURITIS AND RADICULITIS UNSPECIFIED 11/20/2013 LAMBERTO PADGETT APRN 493.92 ASTHMA UNSPECIFIED WITH (ACUTE) EXACERBATION 11/20/2013 MARGE GALLOWAY MD 493.92 ASTHMA UNSPECIFIED WITH (ACUTE) EXACERBATION 11/20/2013 LISA NICHOLAS DDS 493.92 ASTHMA UNSPECIFIED WITH (ACUTE) EXACERBATION 11/20/2013 MARGE GALLOWAY MD 493.92 ASTHMA UNSPECIFIED WITH (ACUTE) EXACERBATION 05/08/2014 MARGE GALLOWAY MD 729.1 MYALGIA AND MYOSITIS UNSPECIFIED 05/08/2014 MARGE GALLOWAY MD 789.00 ABDOMINAL PAIN UNSPECIFIED SITE 05/08/2014 LISA NICHOLAS DDS 729.1 MYALGIA AND MYOSITIS UNSPECIFIED 05/08/2014 LISA NICHOLAS DDS 789.00 ABDOMINAL PAIN UNSPECIFIED SITE 05/08/2014 MARGE GALLOWAY MD 729.1 MYALGIA AND MYOSITIS UNSPECIFIED 05/08/2014 MARGE GALLOWAY MD 789.00 ABDOMINAL PAIN UNSPECIFIED SITE 07/26/2014 MARGE GALLOWAY MD 461.9 SINUSITIS ACUTE 07/30/2014 MARGE GALLOWAY MD 724.2 LUMBAGO 09/05/2014 Ot 724.2 09/05/2014 Ot 724.4 07/07/2015 VASQUEZ FLORES Ot F17.210 07/07/2015 VASQUEZ FLORES Ot G44.209 09/30/2015 PUSHPA COVARRUBIAS DIVE SUPERINTENDENT Ot F17.210 NICOTINE DEPENDENCE, CIGARETTES, UNCOMPL 09/30/2015 PUSHPA COVARRUBIAS DIVE SUPERINTENDENT Ot N93.9 ABNORMAL UTERINE AND VAGINAL BLEEDING, U 10/01/2015 JESUS HINDS DIVE SUPERINTENDENT Ot N85.2 10/01/2015 JESUS HINDS DIVE SUPERINTENDENT Ot N93.9 10/02/2015 PUSHPA COVARRUBIAS DIVE SUPERINTENDENT Ot F17.210 10/02/2015 PUSHPA COVARRUBIAS DIVE SUPERINTENDENT Ot N93.9 11/15/2015 JESUS HINDS APRN Ot N85.2 HYPERTROPHY OF UTERUS 11/15/2015 JESUS HINDS DIVE SUPERINTENDENT Ot N93.9 ABNORMAL UTERINE AND VAGINAL BLEEDING, U Procedures Code Description [place] [address] ROUTINE VENIPUNCTURE 07/27/2013 56943 CBC 07/28/2013 14606 CMP 07/28/2013 5839357 GFR CALC (RESULT ONLY) 07/28/2013 97270 VIT B 12 2013 76019 OXIMETRY 2013 J1100 DEXAMETHASONE SODIUM PHOS, 1 MG 11/20/2013 17783 ROUTINE VENIPUNCTURE 05/08/2014 16369 UA LONG DIP 05/08 38114 CBC 05/08/2014 8714252 GFR CALC (RESULT ONLY) 05/08/2014 35851 CMP 05/08/2014 18668 VITAMIN D 25-HYDROXY (D2,D3, TOTAL) 05/08/2014 Results Encounters ACCT No. Visit Date/Time Discharge Status Pt. Type Provider Facility Loc./Unit Complaint [id number] 07/30/2014 10:32:00 07/30/2014 23: 59:59 CLS Outpatient MARGE GALLOWAY MD [id number] 06/11/2014 10:02:00 06/11/2014 23: 59:59 CLS Outpatient LISA NICHOLAS DDS [id number] 05/08/2014 12:17:00 05/08/2014 23: 59:59 CLS Outpatient MARGE GALLOWAY MD [id number] 11/20/2013 10:36:00 11/20/2013 23: 59:59 CLS Outpatient LAMBERTO PADGETT APRN [id number] 09/18/2013 11:03:00 09/18/2013 23: 59:59 CLS Outpatient MARGE GALLOWAY MD [id number] 07/27/2013 16:05:00 07/27/2013 23: 59:59 CLS Outpatient MARGE GALLOWAY MD [id number] 01/20/2016 15:09:00 2015 15:13:00 DIS Emergency VINAYAK BRITTON MD [facility] ABD CRAMPING/PAIN [id number] 09/30/2015 10:41:00 2015 23:59:59 CLS Outpatient DARRELLCHRISTIANO MOORESAJayna Davalos DIVE SUPERINTENDENT [facility] RAD [id number] 09/30/2015 11:45:00 2015 13:24:00 DIS Emergency PUSHPA COVARRUBIAS DIVE SUPERINTENDENT [facility] [id number] 07/07/2015 19:18:00 2015 22:46:00 DIS Emergency VASQUEZ FLORES [facility] [id number] 05/20/2014 10:09:00 2013 11:43:00 DIS Emergency PUSHPA COVARRUBIAS APRN [facility] [id number] 08/02/2013 21:38:00 2013 00:09:00 DIS Emergency VINAYAK BRITTON MD [facility] [id number] 02/21/2013 10:01:00 2012 11:46:00 DIS Emergency PUSHPA COVARRUBIAS DIVE SUPERINTENDENT [facility] [id number] 02/13/2017 20:47:00 ACT Inpatient ROSLYN DOAN MD [facility] 4TH [employer]OWEL [employer]STRUCTION [id number] 09/05/2014 14:56:00 Document Registration [id number] 08/20/2012 14:27:00 Document Registration [id number] 10/06/2010 10:11:00 Document Registration
--- NOTE | 2017-02-16 09:29 | Discharge Summary-Hospitalist ---
Diagnosis/Chief Complaint Date of Admission Feb 13, 2017 at 20:47 Date of Discharge Feb 14, 2017 at 15:30 Discharge Date: Feb 14, 2017 Admission Diagnosis 1. Presumed small bowel obstruction resolved this morning with an unremarkable abdominal examination with the patient passing stool. Will DC NG tube and advance to clear liquids and then as tolerated. 2. Acute migraine headache we'll give the patient Fioricet and DC Dilauded in addition to a dose of IV Zofran now. Discharge Diagnosis 1. Small bowel obstruction resolved Hospital course: Patient was admitted with NG tube to low intermittent suction. Overnight she had 45 loose nonbloody stools with resolution of abdominal distention and pain. In the morning she was complaining about right sided headache compatible with typical migraine only. She states that she responds well to Fioricet and she was leery about trying any other migraine medication. We did discuss its addictive nature due to the barbiturate components and problems with rebound headache with frequent use. She reports only intermittent use typically less than once or twice a month for many years. Headache was improved post Fioricet she was tolerating solids and subsequent discharged. She has been seen by [facility] in the past and wishes to return to their care. She is advised to call on Wednesday for an appointment to be seen within the next 1-2 weeks. If she has recurrence of symptoms she is to return to the emergency room the interim. Discharge Summary Discharge Physical Examination Allergies: Coded Allergies: latex (Unverified Allergy, Mild, HIVES, 10/06/10) NSAIDS (Non-Steroidal Anti-Inflamma (Verified Allergy, Unknown, 04/26/15) Vitals & I&Os Vital Signs Date Time Temp Pulse Resp B/P (MAP) Pulse Ox O2 Delivery O2 Flow Rate FiO2 02/14/17 14:29 95 Room Air 02/14/17 12:00 98.4 103 20 120/82 02/14/17 06:58 2.00 Discharge Home Medications: Active Scripts Active Reported Miralax (Polyethylene Glycol 3350) 119 Gm Powder 17 Gm PO DAILY PRN Oxycodone HCl ER (Oxycodone HCl) 10 Mg Tab.er.12h 10 Mg PO BID Cyclobenzaprine HCl 10 Mg Tablet 10 Mg PO Q8H PRN Alprazolam 1 Mg Tablet 1 Mg PO TID PRN Duloxetine HCl 30 Mg Capsule.dr 30 Mg PO DAILY LAST FILLED 12/31/16 #30 Dllhul-Yeqmanrz-Tevj 50-300-40 (Butalb/Acetaminophen/Caffeine) 1 Each Capsule 1 Tab PO Q6H PRN Optisource Tablet Chewable (Mv,Ca,Min/Iron Fum/FA/Vit K) 1 Each Tab.chew 1 Tab PO DAILY Calcium Citrate +Vit D3 Tablet (Calcium Citrate/Vitamin D3) 1 Each Tablet 1 Tab PO TID Proair Hfa (Albuterol Sulfate) 1 Puff Puff 1 Puff IH Q4H PRN 1 PUFF = 90 MCG Prilosec Otc (Omeprazole Magnesium) 20 Mg Tablet.dr 20 Mg PO DAILY Gabapentin 800 Mg Tablet 800 Mg PO TID Advair 250-50 Diskus (Fluticasone/Salmeterol) 1 Each Blst.w.dev 1 Puff IH BID Instructions to patient/family Please see electonic discharge instructions given to patient. Clinical Quality Measures DVT/VTE Risk/Contraindication: Risk Factor Score Per Nursin RFS Level Per Nursing on Admit: 1=Low/No VTE PPX ROSLYN DOAN MD Feb 16, 2017 09:29
== END 2017-02-14 15:30 | disposition home or self-care (01) | DRG 390 ==
LOC: 4TH 20:47
PROVIDERS: ADMIT Internal Medicine; ATTEND Internal Medicine
PROC: 0D9670Z Drainage of Stomach with Drainage Device, Via Natural or Artificial Opening (ICD-10-PCS; principal; 2017-02-13)
DX: K56.60 Unspecified intestinal obstruction (principal); G43.909 Migraine, unspecified, not intractable, without status migrainosus; Z87.891 Personal history of nicotine dependence; J44.9 Chronic obstructive pulmonary disease, unspecified
CPT/HCPCS: 36415; 74022; 80053; 85025; 94640; 94664; 94760

== ENCOUNTER 2017-06-14 14:58 | Emergency (ER) | payer SELFPAY ==
[~2017-06-14] VITALS: Ht 160 cm; Wt 90.7 kg
[~2017-06-14 14:58] MED LIST changes: +ACHD5005 PO; +ALPR1TAB2 PO; +ALPR1TAB7 PO; +BUTA1CAP41 PO; +CALC-962 PO; +DULO30CA3 PO; +DULO30CA48 PO; +FLUT1DIS26 IH; +GABA800T2 PO; +MV M PO; +MV,C1TAB35 PO; +OMEP20TA33 PO; +OXYC10TA85 PO; +POLY119P5 PO; +RT-ALBUINH IH; +TOLT2TAB5 PO
--- OUTSIDE RECORDS SUMMARY | 2017-06-14 15:04 | XMS REPORT | Continuity of Care Document ---
Author Author [facility] Address Unknown Phone Unavailable Allergies Active Description Code Type Severity Reaction Onset Reported/Identified Relationship to Patient Clinical Status Yes latex [id number] Drug Allergy Mild HIVES 10/06/2010 Yes Latex OA N/A N/A 07/27/2013 Yes NSAIDS (Non-Steroidal Anti-Inflamma [id number] Drug Allergy Unknown N/A 11/2014 Medications There is no data. Problems Date Dx Coded Attending Type Code [...] DDS 729.1 MYALGIA AND MYOSITIS UNSPECIFIED 05/08/2014 LSIA NICHOLAS DDS 789.00 ABDOMINAL PAIN UNSPECIFIED SITE 05/08/2014 MARGE GALLOWAY MD 729.1 MYALGIA AND MYOSITIS UNSPECIFIED 05/08/2014 MARGE GALLOWAY MD 789.00 ABDOMINAL PAIN UNSPECIFIED SITE 07/26/2014 MARGE GALLOWAY MD 461.9 SINUSITIS ACUTE 07/30/2014 MARGE GALLOWAY MD 724.2 LUMBAGO 09/05/2014 Ot 724.2 LUMBAGO 09/05/2014 Ot 724.4 LUMBOSACRAL NEURITIS NOS 07/07/2015 VASQUEZ FLORES Ot F17.210 NICOTINE DEPENDENCE, CIGARETTES, UNCOMPL 07/07/2015 VASQUEZ FLORES Ot G44.209 TENSION-TYPE HEADACHE, UNSPECIFIED, NOT 09/30/2015 PUSHPA COVARRUBIAS CHEMIC MANGLER Ot F17.210 NICOTINE DEPENDENCE, CIGARETTES, UNCOMPL 09/30/2015 PUSHPA COVARRUBIAS CHEMIC MANGLER Ot N93.9 ABNORMAL UTERINE AND VAGINAL BLEEDING, U 10/01/2015 JESUS HINDS CHEMIC MANGLER Ot N85.2 10/01/2015 JESUS HINDS CHEMIC MANGLER Ot N93.9 10/02/2015 PUSHPA COVARRUBIAS APRN Ot F17.210 10/02/2015 PUSHPA COVARRUBIAS APRN Ot N93.9 11/15/2015 JESUS HINDS CHEMIC MANGLER Ot N85.2 HYPERTROPHY OF UTERUS 11/15/2015 JESUS HINDS CHEMIC MANGLER Ot N93.9 ABNORMAL UTERINE AND VAGINAL BLEEDING, U 01/20/2016 REBA MEJÍA, VINAYAK Silvestre Ot R10.30 LOWER ABDOMINAL PAIN, UNSPECIFIED 01/20/2016 REBA MEJÍA, VINAYAK Silvestre Ot Z53.21 PROC/TRTMT NOT CRD OUT D/T PT LV BEF SEE 02/14/2017 OLIMPIA MEJÍA, ROSLYN Silvestre Ot G43.909 MIGRAINE, UNSP, NOT INTRACTABLE, WITHOUT 02/14/2017 OLIMPIA MEJÍA, ROSLYN Silvestre Ot J44.9 CHRONIC OBSTRUCTIVE PULMONARY DISEASE, U 02/14/2017 OLIMPIA MEJÍA, ROSLYN Silvestre Ot K56.60 UNSPECIFIED INTESTINAL OBSTRUCTION 02/14/2017 OLIMPIA MEJÍA, ROSLYN Silvestre Ot Z87.891 PERSONAL HISTORY OF NICOTINE DEPENDENCE 03/01/2017 JESUS HINDS CHEMIC MANGLER Ot N85.2 HYPERTROPHY OF UTERUS 03/01/2017 JESUS HINDS CHEMIC MANGLER Ot N93.9 ABNORMAL UTERINE AND VAGINAL BLEEDING, U 05/05/2017 BRENTON LAWSON CHEMIC MANGLER Ot 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, VERTEBRAE 05/05/2017 BRENTON LAWSON CHEMIC MANGLER Ot R22.31 LOCALIZED SWELLING, MASS AND LUMP, RIGHT 05/05/2017 BRENTON LAWSON CHEMIC MANGLER Ot R22.32 LOCALIZED SWELLING, MASS AND LUMP, LEFT 05/05/2017 BRENTON LAWSON CHEMIC MANGLER Ot R29.2 ABNORMAL REFLEX 05/17/2017 BRENTON LAWSON Ibeth LIRA Ot 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, VERTEBRAE 05/17/2017 BRENTON LAWSON Ibeth LIRA Ot R22.31 LOCALIZED SWELLING, MASS AND LUMP, RIGHT 05/17/2017 BRENTON LAWSON SORAYA Ot R22.32 LOCALIZED SWELLING, MASS AND LUMP, LEFT 05/17/2017 BRENTON LAWSON SORAYA Ot R29.2 ABNORMAL REFLEX Procedures Code Description [place] [address] ROUTINE VENIPUNCTURE 07/27/2013 64404 CBC 07/28/2013 02896 CMP 07/28/2013 [id number] GFR CALC (RESULT ONLY) 07/28/2013 61174 VIT B 12 07/28/2013 34995 OXIMETRY 11/20/2013 J1100 DEXAMETHASONE SODIUM PHOS, 1 MG 11/20/2013 42228 ROUTINE VENIPUNCTURE 05/08/2014 25579 UA LONG DIP 05/08/2014 80081 CBC 05/08/2014 4983423 GFR CALC (RESULT ONLY) 05/08/2014 70390 CMP 05/08/2014 43496 VITAMIN D 25-HYDROXY (D2,D3 , TOTAL) 05/08/2014 [id number] DRAINAGE OF STOMACH WITH DRAINAGE DEVICE 02/13/2017 Results Test Result Range Complete blood count (CBC) with automated white blood cell (WBC) differential - 02/14/17 04:47 Blood leukocytes automated count (number/volume) 6.0 10*3/uL 4.3-11.0 Blood erythrocytes automated count (number/volume) 3.95 10*6/uL 4.35-5.85 Venous blood hemoglobin measurement (mass/volume) 10.9 g/dL 11.5-16.0 Blood hematocrit (volume fraction) 36 % 35-52 Automated erythrocyte mean corpuscular volume 91 [foz_us] 80-99 Automated erythrocyte mean corpuscular hemoglobin (mass per erythrocyte) 28 pg 25-34 Automated erythrocyte mean corpuscular hemoglobin concentration measurement ( mass/volume) 30 g/dL 32-36 Automated erythrocyte distribution width ratio 15.1 % 10.0-14.5 Automated blood platelet count (count/volume) 302 10*3/uL 130-400 Automated blood platelet mean volume measurement 9.5 [foz_us] 7.4-10.4 Automated blood neutrophils/100 leukocytes 55 % 42-75 Automated blood lymphocytes/100 leukocytes 25 % 12-44 Blood monocytes/100 leukocytes 7 % 0-12 Automated blood eosinophils/100 leukocytes 13 % 0-10 Automated blood basophils/100 leukocytes 0 % 0-10 Blood neutrophils automated count (number/volume) 3.3 10*3 1.8-7.8 Blood lymphocytes automated count (number/volume) 1.5 10*3 1.0-4.0 Blood monocytes automated count (number/volume) 0.4 10*3 0.0-1.0 Automated eosinophil count 0.8 10*3/uL 0.0-0.3 Automated blood basophil count (count/volume) 0.0 10*3/uL 0.0-0.1 Comprehensive metabolic panel - 02/14/17 04:47 Serum or plasma sodium measurement (moles/volume) 143 mmol/L 135-145 Serum or plasma potassium measurement (moles/volume) 4.3 mmol/L 3.6-5.0 Serum or plasma chloride measurement (moles/volume) 108 mmol/L 98-107 Carbon dioxide 26 mmol/L 21-32 Serum or plasma anion gap determination (moles/volume) 9 mmol/L 5-14 Serum or plasma urea nitrogen measurement (mass/volume) 7 mg/dL 7-18 Serum or plasma creatinine measurement (mass/volume) 0.74 mg/dL 0.60-1.30 Serum or plasma urea nitrogen/creatinine mass ratio 9 NRG Serum or plasma creatinine measurement with calculation of estimated glomerular filtration rate > NRG Serum or plasma glucose measurement (mass/volume) 99 mg/dL 70-105 Serum or plasma calcium measurement (mass/volume) 9.3 mg/dL 8.5-10.1 Serum or plasma total bilirubin measurement (mass/volume) 0.6 mg/dL 0.1-1.0 Serum or plasma alkaline phosphatase measurement (enzymatic activity/volume) 68 U/L 40-136 Serum or plasma aspartate aminotransferase measurement (enzymatic activity/ volume) 26 U/L 5-34 Serum or plasma alanine aminotransferase measurement (enzymatic activity/volume ) 23 U/L 0-55 Serum or plasma protein measurement (mass/volume) 6.5 g/dL 6.4-8.2 Serum or plasma albumin measurement (mass/volume) 3.7 g/dL 3.2-4.5 Encounters ACCT No. Visit Date/Time Discharge Status Pt. Type Provider Facility Loc./Unit Complaint [id number] 07/30/2014 10:32:00 07/30/2014 23:59:59 CLS Outpatient MARGE GALLOWAY MD [id number] 06/11/2014 10:02:00 06/11/2014 23:59:59 CLS Outpatient LISA NICHOLAS DDS [id number] 05/08/2014 12:17:00 05/08/2014 23:59:59 CLS Outpatient MARGE GALLOWAY MD [id number] 11/20/2013 10:36:00 11/20/2013 23:59:59 CLS Outpatient LORIN CHEMIC MANGLERLAMBERTO [id number] 09/18/2013 11:03:00 09/18/2013 23:59:59 CLS Outpatient MARGE GALLOWAY MD [id number] 07/27/2013 16:05:00 07/27/2013 23:59:59 CLS Outpatient MARGE GALLOWAY MD [id number] 04/29/2017 11:04:00 04/29/2017 23:59:59 CLS Outpatient BRENTON LAWSON CHEMIC MANGLER [facility] RAD R29.2 [id number] 02/13/2017 20:47:00 02/14/2017 15:30:00 DIS Inpatient ROSLYN DOAN MD [facility] 4TH BOWEL OBSTRUCTION [id number] 01/20/2016 15:09:00 01/20/2016 15:13:00 DIS Emergency VINAYAK BRITTON MD [facility] ER ABD CRAMPING/PAIN [id number] 09/30/2015 10:41:00 09/30/2015 23:59:59 CLS Outpatient JESUS HINDS CHEMIC MANGLER [facility] RAD HEAVY BLEEDING, ENLARGED UTERUS [id number] 09/30/2015 11:45:00 09/30/2015 13:24:00 DIS Emergency PUSHPA COVARRUBIAS CHEMIC MANGLER [facility] ER LOWER ABD PAIN/VAG BLEEDING [id number] 07/07/2015 19:18:00 07/07/2015 22:46:00 DIS Emergency VASQUEZ FLORES [facility] ER HEADACHE X 2 WEEKS [id number] 05/20/2014 10:09:00 05/20/2014 11:43:00 DIS Emergency PUSHPA COVARRUBIAS APRN [facility] ER [id number] 08/02/2013 21:38:00 08/03/2013 00:09:00 DIS Emergency REBA MEJÍA, VINAYAK Silvestre [facility] ER [id number] 02/21/2013 10:01:00 02/21/2013 11:46:00 DIS Emergency PUSHPA COVARRUBIAS APRN [facility] ER [id number] 09/05/2014 14:56:00 Document Registration [id number] 08/20/2012 14:27:00 Document Registration [id number] 10/06/2010 10:11:00 Document Registration
[2017-06-14] MEDS ORDERED: KETOROLAC 30 MG/ML VIAL IVP ONE (15:15)
[2017-06-14] MEDS ORDERED: PROMETHAZINE INJ 25 MG/ML (PHENERGAN) AMP IVP ONE (15:15)
[2017-06-14] MEDS ORDERED: NS IV 1000 ML 1,000 ML IV SCH (15:15)
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
[2017-06-14 15:20] LABS: BASOPHILS # (AUTO) 0.1 10^3/uL (0.0-0.1); BASOPHILS % (AUTO) 2 % (0-10); EOSINOPHILS # (AUTO) 0.4 10^3/uL (0.0-0.3); EOSINOPHILS % (AUTO) 7 % (0-10); LYMPHOCYTES # (AUTO) 1.8 X 10^3 (1.0-4.0); LYMPHOCYTES % (AUTO) 27 % (12-44); MEAN CORPUSCULAR HEMOGLOBIN 27 PG (25-34); MEAN CORPUSCULAR HGB CONC 32 G/DL (32-36); MEAN CORPUSCULAR VOLUME 87 FL (80-99); MEAN PLATELET VOLUME 9.5 FL (7.4-10.4); MONOCYTES # (AUTO) 0.4 X 10^3 (0.0-1.0); MONOCYTES % (AUTO) 7 % (0-12); NEUTROPHILS % (AUTO) 58 % (42-75); PLATELET COUNT 384 10^3/uL (130-400); WHITE BLOOD COUNT 6.8 10^3/uL (4.3-11.0)
[2017-06-14 15:43] LABS: ALANINE AMINOTRANSFERASE 30 U/L (0-55); ANION GAP 12 MMOL/L (5-14); ASPARTATE AMINO TRANSFERASE 25 U/L (5-34); BILIRUBIN,TOTAL 0.3 MG/DL (0.1-1.0); BLOOD UREA NITROGEN 8 MG/DL (7-18); BUN/CREATININE RATIO 10; CARBON DIOXIDE 23 MMOL/L (21-32); CHLORIDE 108 MMOL/L (98-107); CREATININE SERUM 0.79 MG/DL (0.60-1.30); GFR ESTIMATED > 60; GLUCOSE 96 MG/DL (70-105); LIPASE 34 U/L (8-78); POTASSIUM 3.7 MMOL/L (3.6-5.0); SODIUM 143 MMOL/L (135-145); TOTAL PROTEIN 7.2 GM/DL (6.4-8.2)
[2017-06-14] MEDS ORDERED: NS 100 ML (IVPB) BAG IV ONE (15:45)
[2017-06-14] MEDS ORDERED: IOHEXOL 350 MG/ML 100 ML (OMNIPAQUE 350) VIAL IV ONE (15:45)
--- NOTE | 2017-06-14 16:00 | Diagnostic Imaging Report ---
PROCEDURE: CT abdomen and pelvis with contrast. TECHNIQUE: Multiple contiguous axial images were obtained through the abdomen and pelvis after administration of intravenous contrast. INDICATION: Recent diagnosis of ileus. Right-sided abdominal pain. History of cholecystectomy, hysterectomy and gastric bypass. FINDINGS: The lung bases are clear. The liver appears normal. The gallbladder is absent. Bile ducts are not dilated. The pancreas and spleen are normal. The adrenal glands are normal. The kidneys appear normal. There is normal enhancement of the abdominal organs and vessels. Surgical changes from gastric bypass are noted. There is moderate distention of the small bowel with air-fluid levels scattered throughout the small bowel. There is liquid stool within the colon throughout to the rectum. There is a trace of free fluid in the pelvis. There are no pelvic masses. No intra-abdominal adenopathy. No bony abnormalities. IMPRESSION: 1. Moderately distended air fluid filled loops of small bowel. Could not exclude partial distal small bowel obstruction versus adynamic ileus. 2. The colon is filled with fluid from the cecum to the rectum. Dictated by: Dictated on workstation # [id number]
[2017-06-14] MEDS ORDERED: PROM25TA14 PO (16:12)
[2017-06-14 16:20] LABS: BILIRUBIN,URINE NEGATIVE (NEGATIVE); KETONES,URINE NEGATIVE (NEGATIVE); LEUKOCYTE ESTERASE ,URINE NEGATIVE (NEGATIVE); NITRITE,URINE NEGATIVE (NEGATIVE); PH,URINE 5 (5-9); PROTEIN,URINE NEGATIVE (NEGATIVE); UROBILINOGEN,URINE NORMAL (NORMAL)
[2017-06-14 16:26] LABS: SQUAMOUS EPITHELIAL CELL,UR RARE /HPF
[2017-06-14] MEDS ORDERED: RX-ONDANSETRON 4 MG ODT (ZOFRAN) PPK #4 PO STA (16:43)
[2017-06-14] MEDS ORDERED: fentaNYL INJECTION 100 MCG/2 ML AMP IVP ONE (16:45)
[2017-06-14 17:15] VITALS: BP 104/71
== END 2017-06-14 17:15 | disposition home or self-care (01) ==
LOC: EDUNIT# 14:58 → ER 15:00
DX: K56.7 Ileus, unspecified (principal); J44.9 Chronic obstructive pulmonary disease, unspecified; G43.909 Migraine, unspecified, not intractable, without status migrainosus; F41.9 Anxiety disorder, unspecified; F43.10 Post-traumatic stress disorder, unspecified; F17.200 Nicotine dependence, unspecified, uncomplicated; Z98.84 Bariatric surgery status; Z87.19 Personal history of other diseases of the digestive system; Z82.49 Family history of ischemic heart disease and other diseases of the circulatory system; Z87.59 Personal history of other complications of pregnancy, childbirth and the puerperium; Z98.51 Tubal ligation status
CPT/HCPCS: 36415; 74177; 80053; 81000; 83690; 85025

== ENCOUNTER 2017-06-17 17:08 | Emergency (ER) | payer SELFPAY ==
[~2017-06-17] VITALS: Ht 160 cm; Wt 90.7 kg
[~2017-06-17 17:08] MED LIST changes: +PROM25TA14 PO
--- OUTSIDE RECORDS SUMMARY | 2017-06-17 17:13 | XMS REPORT | Continuity of Care Document ---
Author Author [facility] Address Unknown Phone Unavailable Allergies Active Description Code Type Severity Reaction Onset Reported/Identified Relationship to Patient Clinical Status Yes latex [id number] Drug Allergy Mild HIVES 10/06/2010 Yes Latex OA N/A N/A 07/27/2013 Yes NSAIDS (Non-Steroidal Anti-Inflamma [id number] Drug Allergy Unknown N/A 11/2014 Medications There [...] TENSION-TYPE HEADACHE, UNSPECIFIED, NOT 09/30/2015 PUSHPA COVARRUBIAS GRAIN COMBINE DRIVER Ot F17.210 NICOTINE DEPENDENCE, CIGARETTES, UNCOMPL 09/30/2015 PUSHPA COVARRUBIAS GRAIN COMBINE DRIVER Ot N93.9 ABNORMAL UTERINE AND VAGINAL BLEEDING, U 10/01/2015 JESUS HINDS GRAIN COMBINE DRIVER Ot N85.2 10/01/2015 JESUS HINDS GRAIN COMBINE DRIVER Ot N93.9 10/02/2015 PUSHPA COVARRUBIAS APRN Ot F17.210 10/02/2015 PUSHPA COVARRUBIAS APRN Ot N93.9 11/15/2015 JESUS HINDS GRAIN COMBINE DRIVER Ot N85.2 HYPERTROPHY OF UTERUS 11/15/2015 JESUS HINDS GRAIN COMBINE DRIVER Ot N93.9 ABNORMAL UTERINE AND VAGINAL BLEEDING, [...] HISTORY OF NICOTINE DEPENDENCE 03/01/2017 JESUS HINDS GRAIN COMBINE DRIVER Ot N85.2 HYPERTROPHY OF UTERUS 03/01/2017 JESUS HINDS GRAIN COMBINE DRIVER Ot N93.9 ABNORMAL UTERINE AND VAGINAL BLEEDING, U 05/05/2017 BRENTON LAWSON GRAIN COMBINE DRIVER Ot 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, VERTEBRAE 05/05/2017 BRENTON LAWSON GRAIN COMBINE DRIVER Ot R22.31 LOCALIZED SWELLING, MASS AND LUMP, RIGHT 05/05/2017 BRENTON LAWSON GRAIN COMBINE DRIVER Ot R22.32 LOCALIZED SWELLING, MASS AND LUMP, LEFT 05/05/2017 BRENTON LAWSON GRAIN COMBINE DRIVER Ot R29.2 ABNORMAL REFLEX 05/17/2017 BRENTON LAWSON Ibeth LIRA Ot 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, VERTEBRAE 05/17/2017 BRENTON LAWSON Ibeth LIRA Ot R22.31 LOCALIZED SWELLING, MASS AND LUMP, RIGHT 05/17/2017 BRENTON LAWSON SORAYA Ot R22.32 LOCALIZED SWELLING, MASS AND LUMP, LEFT 05/17/2017 BRENTON LAWSON SORAYA Ot R29.2 ABNORMAL REFLEX Procedures Code Description [place] [address] ROUTINE VENIPUNCTURE 07/27/2013 18399 CBC 07/28/2013 00117 CMP 07/28/2013 7258971 GFR CALC (RESULT ONLY) 07/28/2013 10134 VIT B 12 07/28/2013 63895 OXIMETRY 11/20/2013 J1100 DEXAMETHASONE SODIUM PHOS, 1 MG 11/20/2013 94122 ROUTINE VENIPUNCTURE 05/08/2014 07564 UA LONG DIP 05/08/2014 68895 CBC 05/08/2014 4953508 GFR CALC (RESULT ONLY) 05/08/2014 45041 CMP 05/08/2014 55217 VITAMIN D 25-HYDROXY (D2,D3 , TOTAL) 05/08/2014 [id number] DRAINAGE OF STOMACH WITH DRAINAGE DEVICE 02/13/2017 [...] plasma albumin measurement (mass/volume) 3.7 g/dL 3.2-4.5 Complete blood count (CBC) with automated white blood cell (WBC) differential - 06/14/17 15:10 Blood leukocytes automated count (number/volume) 6.8 10*3/uL 4.3-11.0 Blood erythrocytes automated count (number/volume) 4.30 10*6/uL 4.35-5.85 Venous blood hemoglobin measurement (mass/volume) 11.8 g/dL 11.5-16.0 Blood hematocrit (volume fraction) 37 % 35-52 Automated erythrocyte mean corpuscular volume 87 [foz_us] 80-99 Automated erythrocyte mean corpuscular hemoglobin (mass per erythrocyte) 27 pg 25-34 Automated erythrocyte mean corpuscular hemoglobin concentration measurement ( mass/volume) 32 g/dL 32-36 Automated erythrocyte distribution width ratio 16.0 % 10.0-14.5 Automated blood platelet count (count/volume) 384 10*3/uL 130-400 Automated blood platelet mean volume measurement 9.5 [foz_us] 7.4-10.4 Automated blood neutrophils/100 leukocytes 58 % 42-75 Automated blood lymphocytes/100 leukocytes 27 % 12-44 Blood monocytes/100 leukocytes 7 % 0-12 Automated blood eosinophils/100 leukocytes 7 % 0-10 Automated blood basophils/100 leukocytes 2 % 0-10 Blood neutrophils automated count (number/volume) 4.0 10*3 1.8-7.8 Blood lymphocytes automated count (number/volume) 1.8 10*3 1.0-4.0 Blood monocytes automated count (number/volume) 0.4 10*3 0.0-1.0 Automated eosinophil count 0.4 10*3/uL 0.0-0.3 Automated blood basophil count (count/volume) 0.1 10*3/uL 0.0-0.1 Comprehensive metabolic panel - 06/14/17 15:10 Serum or plasma sodium measurement (moles/volume) 143 mmol/L 135-145 Serum or plasma potassium measurement (moles/volume) 3.7 mmol/L 3.6-5.0 Serum or plasma chloride measurement (moles/volume) 108 mmol/L 98-107 Carbon dioxide 23 mmol/L 21-32 Serum or plasma anion gap determination (moles/volume) 12 mmol/L 5-14 Serum or plasma urea nitrogen measurement (mass/volume) 8 mg/dL 7-18 Serum or plasma creatinine measurement (mass/volume) 0.79 mg/dL 0.60-1.30 Serum or plasma urea nitrogen/creatinine mass ratio 10 NRG Serum or plasma creatinine measurement with calculation of estimated glomerular filtration rate > NRG Serum or plasma glucose measurement (mass/volume) 96 mg/dL 70-105 Serum or plasma calcium measurement (mass/volume) 9.0 mg/dL 8.5-10.1 Serum or plasma total bilirubin measurement (mass/volume) 0.3 mg/dL 0.1-1.0 Serum or plasma alkaline phosphatase measurement (enzymatic activity/volume) 68 U/L 40-136 Serum or plasma aspartate aminotransferase measurement (enzymatic activity/ volume) 25 U/L 5-34 Serum or plasma alanine aminotransferase measurement (enzymatic activity/volume ) 30 U/L 0-55 Serum or plasma protein measurement (mass/volume) 7.2 g/dL 6.4-8.2 Serum or plasma albumin measurement (mass/volume) 4.0 g/dL 3.2-4.5 Lipase - 06/14/17 15:10 Lipase 34 U/L 8-78 Complete urinalysis with reflex to culture - 06/14/17 16:11 Urine color determination YELLOW NRG Urine clarity determination CLEAR NRG Urine pH measurement by test strip 5 5-9 Specific gravity of urine by test strip 1.005 1.016- 1.022 Urine protein assay by test strip, semi-quantitative NEGATIVE NEGATIVE Urine glucose detection by automated test strip NEGATIVE NEGATIVE Erythrocytes detection in urine sediment by light microscopy NEGATIVE NEGATIVE Urine ketones detection by automated test strip NEGATIVE NEGATIVE Urine nitrite detection by test strip NEGATIVE NEGATIVE Urine total bilirubin detection by test strip NEGATIVE NEGATIVE Urine urobilinogen measurement by automated test strip (mass/volume) NORMAL NORMAL Urine leukocyte esterase detection by dipstick NEGATIVE NEGATIVE Automated urine sediment erythrocyte count by microscopy (number/high power field) NONE NRG Automated urine sediment leukocyte count by microscopy (number/high power field ) NONE NRG Bacteria detection in urine sediment by light microscopy NEGATIVE NRG Squamous epithelial cells detection in urine sediment by light microscopy RARE NRG Crystals detection in urine sediment by light microscopy NONE NRG Casts detection in urine sediment by light microscopy NONE NRG Mucus detection in urine sediment by light microscopy NEGATIVE NRG Complete urinalysis with reflex to culture NO NRG Encounters ACCT No. Visit Date/Time Discharge Status Pt. Type Provider Facility Loc./Unit Complaint [id number] 07/30/2014 10:32:00 07/30/2014 23:59:59 CLS Outpatient MARGE GALLOWAY MD [id number] 06/11/2014 10:02:00 06/11/2014 23:59:59 CLS Outpatient LISA NICHOLAS DDS [id number] 05/08/2014 12:17:00 05/08/2014 23:59:59 CLS Outpatient MAGRE GALLOWAY MD [id number] 11/20/2013 10:36:00 11/20/2013 23:59:59 CLS Outpatient VANNESSACj LIRALAMBERTO [id number] 09/18/2013 11:03:00 09/18/2013 23:59:59 CLS Outpatient MARGE GALLOWAY MD [id number] 07/27/2013 16:05:00 07/27/2013 23:59:59 CLS Outpatient MARGE GALLOWAY MD [id number] 04/29/2017 11:04:00 04/29/2017 23:59:59 CLS Outpatient BRENTON LAWSON GRAIN COMBINE DRIVER [facility] RAD R29.2 [id number] 02/13/2017 20:47:00 02/14/2017 15:30:00 DIS Inpatient ROSLYN DOAN MD [facility] 4TH BOWEL OBSTRUCTION [id number] 01/20/2016 15:09:00 01/20/2016 15:13:00 DIS Emergency VINAYAK BRITTON MD [facility] ER ABD CRAMPING/PAIN [id number] 09/30/2015 10:41:00 09/30/2015 23:59:59 CLS Outpatient JESUS HINDS GRAIN COMBINE DRIVER [facility] RAD HEAVY BLEEDING, ENLARGED UTERUS [id number] 09/30/2015 11:45:00 09/30/2015 13:24:00 DIS Emergency PUSHPA COVARRUBIAS GRAIN COMBINE DRIVER [facility] ER LOWER ABD PAIN/VAG BLEEDING [id number] 07/07/2015 19:18:00 07/07/2015 22:46:00 DIS Emergency VASQUEZ FLORES [facility] ER HEADACHE X 2 WEEKS [id number] 05/20/2014 10:09:00 05/20/2014 11:43:00 DIS Emergency PUSHPA COVARRUBIAS GRAIN COMBINE DRIVER [facility] ER [id number] 08/02/2013 21:38:00 08/03/2013 00:09:00 DIS Emergency REBA MEJÍA, VINAYAK Silvestre [facility] ER [id number] 02/21/2013 10:01:00 02/21/2013 11:46:00 DIS Emergency PUSHPA COVARRUBIAS GRAIN COMBINE DRIVER [facility] ER [id number] 06/14/2017 15:21:00 Document Registration [id number] 09/05/2014 14:56:00 Document Registration [id number] 08/20/2012 14:27:00 Document Registration [id number] 10/06/2010 10:11:00 Document Registration
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
[2017-06-17] MEDS: fentaNYL INJECTION 100 MCG/2 ML AMP IVP ONE (18:32)
[2017-06-17] MEDS: ONDANSETRON 4 MG/2 ML (SDV) Z0FRAN IVP ONE (18:32)
[2017-06-17] MEDS: LACTATED RINGERS 1,000 ML IV ONE (18:33)
[2017-06-17 18:41] LABS: BASOPHILS # (AUTO) 0.1 10^3/uL (0.0-0.1); BASOPHILS % (AUTO) 1 % (0-10); EOSINOPHILS # (AUTO) 0.5 10^3/uL (0.0-0.3); EOSINOPHILS % (AUTO) 8 % (0-10); LYMPHOCYTES # (AUTO) 1.9 X 10^3 (1.0-4.0); LYMPHOCYTES % (AUTO) 33 % (12-44); MEAN CORPUSCULAR HEMOGLOBIN 27 PG (25-34); MEAN CORPUSCULAR HGB CONC 31 G/DL (32-36); MEAN CORPUSCULAR VOLUME 87 FL (80-99); MEAN PLATELET VOLUME 9.5 FL (7.4-10.4); MONOCYTES # (AUTO) 0.4 X 10^3 (0.0-1.0); MONOCYTES % (AUTO) 6 % (0-12); NEUTROPHILS % (AUTO) 52 % (42-75); PLATELET COUNT 344 10^3/uL (130-400); RED BLOOD COUNT 4.39 10^6/uL (4.35-5.85); RED CELL DISTRIBUTION WIDTH 16.5 % (10.0-14.5); WHITE BLOOD COUNT 5.8 10^3/uL (4.3-11.0)
[2017-06-17 18:51] LABS: BILIRUBIN,URINE NEGATIVE (NEGATIVE); KETONES,URINE NEGATIVE (NEGATIVE); LEUKOCYTE ESTERASE ,URINE NEGATIVE (NEGATIVE); NITRITE,URINE NEGATIVE (NEGATIVE); PH,URINE 8 (5-9); PROTEIN,URINE NEGATIVE (NEGATIVE); UROBILINOGEN,URINE NORMAL (NORMAL)
[2017-06-17] MEDS: NS 100 ML (IVPB) BAG IV ONE (18:51)
[2017-06-17] MEDS: CATHETER FLUSH 10 ML SYR IV PRN (18:51)
[2017-06-17] MEDS: IOHEXOL 350 MG/ML 100 ML (OMNIPAQUE 350) VIAL IV ONE (18:51)
[2017-06-17 19:05] LABS: ALANINE AMINOTRANSFERASE 21 U/L (0-55); ANION GAP 10 MMOL/L (5-14); ASPARTATE AMINO TRANSFERASE 19 U/L (5-34); BILIRUBIN,TOTAL 0.3 MG/DL (0.1-1.0); BLOOD UREA NITROGEN 8 MG/DL (7-18); BUN/CREATININE RATIO 10; CALCIUM 9.2 MG/DL (8.5-10.1); CARBON DIOXIDE 26 MMOL/L (21-32); CHLORIDE 109 MMOL/L (98-107); CREATININE SERUM 0.78 MG/DL (0.60-1.30); GFR ESTIMATED > 60; GLUCOSE 82 MG/DL (70-105); LIPASE 78 U/L (8-78); MAGNESIUM 2.3 MG/DL (1.8-2.4); POTASSIUM 3.9 MMOL/L (3.6-5.0); SODIUM 145 MMOL/L (135-145); TOTAL PROTEIN 7.1 GM/DL (6.4-8.2)
--- NOTE | 2017-06-17 19:06 | Diagnostic Imaging Report ---
PROCEDURE: CT abdomen and pelvis with contrast. TECHNIQUE: Multiple contiguous axial images were obtained through the abdomen and pelvis after administration of intravenous contrast. INDICATION: Abdominal pain with history of hysterectomy and gastric bypass. Comparison is made with CT study from June 14, 2017. FINDINGS: The visualized lung bases are clear. The liver demonstrates no evidence of a focal intrahepatic abnormality. The gallbladder appears to have been resected. There is no abnormal biliary dilatation. The spleen is normal in size. CT appearance of the pancreas unremarkable. There is no adrenal mass demonstrated. The kidneys enhance normally and are nonobstructed. There are prior operative changes related to gastric bypass. There are a few fluid-filled loops of small bowel but there is no significant small bowel dilation to suggest obstruction. There is a large degree of stool demonstrated within the colon. There is no focal abnormal bowel thickening or evidence of mucosal hyperenhancement. The appendix appears normal. There is a small degree of free fluid within the pelvis. Patient is status post hysterectomy. The urinary bladder is unremarkable. There is no free air, free fluid or evidence of abscess. There is no pathologic abdominal or pelvic adenopathy. No acute or suspicious osseous abnormality is demonstrated. IMPRESSION: 1. Operative changes of previous gastric bypass. There continue to be a few fluid-filled loops of small bowel but the degree of small bowel distention appears improved from the previous exam. An ongoing ileus could not be excluded. 2. There is a large degree of stool demonstrated throughout the colon. 3. Small degree of nonspecific free fluid within the pelvis. 4. No free air or evidence of abscess. 5. Previous cholecystectomy. Dictated by: Dictated on workstation # [id number]
[2017-06-17] MEDS ORDERED: TRAM-42 PO (20:11)
[2017-06-17] MEDS ORDERED: PROM25TA14 PO (20:11)
[2017-06-17] MEDS ORDERED: ONDA8TAB9 PO (20:11)
[2017-06-17] MEDS ORDERED: POLY17PO6 PO (20:11)
[2017-06-17 20:20] VITALS: BP 136/88
== END 2017-06-17 20:22 | disposition home or self-care (01) ==
LOC: EDUNIT# 17:08 → ER 17:09
DX: K59.00 Constipation, unspecified (principal); K56.49 Other impaction of intestine; J44.9 Chronic obstructive pulmonary disease, unspecified; F41.9 Anxiety disorder, unspecified; F43.10 Post-traumatic stress disorder, unspecified; G43.909 Migraine, unspecified, not intractable, without status migrainosus; F17.200 Nicotine dependence, unspecified, uncomplicated; Z82.49 Family history of ischemic heart disease and other diseases of the circulatory system; Z98.84 Bariatric surgery status; Z87.59 Personal history of other complications of pregnancy, childbirth and the puerperium; Z87.19 Personal history of other diseases of the digestive system
CPT/HCPCS: 36415; 74177; 80053; 81000; 83690; 83735; 84703; 85025

== ENCOUNTER 2017-07-20 10:41 | Emergency (ER) | payer SELFPAY ==
[~2017-07-20] VITALS: Ht 160 cm; Wt 90.7 kg
[~2017-07-20 10:41] MED LIST changes: +ONDA8TAB9 PO; +POLY17PO6 PO; +TRAM-42 PO
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
[2017-07-20 11:19] LABS: BILIRUBIN,URINE NEGATIVE (NEGATIVE); CLARITY,URINE CLEAR; COLOR,URINE YELLOW; GLUCOSE, URINE (UA) NEGATIVE (NEGATIVE); KETONES,URINE NEGATIVE (NEGATIVE); LEUKOCYTE ESTERASE ,URINE NEGATIVE (NEGATIVE); NITRITE,URINE NEGATIVE (NEGATIVE); PH,URINE 7 (5-9); PROTEIN,URINE NEGATIVE (NEGATIVE); UROBILINOGEN,URINE NORMAL (NORMAL)
[2017-07-20 11:25] LABS: BACTERIA,URINE NEGATIVE /HPF; SQUAMOUS EPITHELIAL CELL,UR 0-2 /HPF
[2017-07-20 11:30] LABS: AMPHETAMINE SCREEN, URINE NEGATIVE (NEGATIVE); BARBITURATE SCREEN URINE POSITIVE (NEGATIVE); BENZODIAZEPINES SCREEN URINE NEGATIVE (NEGATIVE); CANNABINOID SCREEN, URINE NEGATIVE (NEGATIVE); COCAINE SCREEN URINE NEGATIVE (NEGATIVE); METHADONE STAT NEGATIVE (NEGATIVE); METHAMPHETAMINE SCREEN URINE S NEGATIVE (NEGATIVE); OPIATE SCREEN URINE NEGATIVE (NEGATIVE); OXYCODONE STAT NEGATIVE (NEGATIVE); PROPOXYPHENE STAT NEGATIVE (NEGATIVE); TRICYCLIC ANTIDEPRESSANTS SCRE NEGATIVE (NEGATIVE)
[2017-07-20 11:41] LABS: BASOPHILS % (AUTO) 1 % (0-10); EOSINOPHILS # (AUTO) 0.4 10^3/uL (0.0-0.3); EOSINOPHILS % (AUTO) 5 % (0-10); HEMATOCRIT 33 % (35-52); HEMOGLOBIN 10.6 G/DL (11.5-16.0); LYMPHOCYTES # (AUTO) 1.8 X 10^3 (1.0-4.0); LYMPHOCYTES % (AUTO) 26 % (12-44); MEAN CORPUSCULAR HEMOGLOBIN 28 PG (25-34); MEAN CORPUSCULAR HGB CONC 32 G/DL (32-36); MEAN CORPUSCULAR VOLUME 87 FL (80-99); MEAN PLATELET VOLUME 8.7 FL (7.4-10.4); MONOCYTES # (AUTO) 0.5 X 10^3 (0.0-1.0); MONOCYTES % (AUTO) 8 % (0-12); NEUTROPHILS % (AUTO) 60 % (42-75); PLATELET COUNT 499 10^3/uL (130-400); RED BLOOD COUNT 3.81 10^6/uL (4.35-5.85); RED CELL DISTRIBUTION WIDTH 17.8 % (10.0-14.5); WHITE BLOOD COUNT 6.6 10^3/uL (4.3-11.0)
[2017-07-20] MEDS ORDERED: IOHEXOL 350 MG/ML 100 ML (OMNIPAQUE 350) VIAL IV ONE (11:45)
[2017-07-20] MEDS ORDERED: CATHETER FLUSH 10 ML SYR IV PRN (11:45)
[2017-07-20 12:02] LABS: ALANINE AMINOTRANSFERASE 26 U/L (0-55); ALBUMIN 3.5 GM/DL (3.2-4.5); ALKALINE PHOSPHATASE 62 U/L (40-136); BILIRUBIN,TOTAL 0.2 MG/DL (0.1-1.0); BUN/CREATININE RATIO 17; CALCIUM 8.7 MG/DL (8.5-10.1); CARBON DIOXIDE 26 MMOL/L (21-32); CHLORIDE 109 MMOL/L (98-107); CREATININE SERUM 0.71 MG/DL (0.60-1.30); ERYTHROCYTE SEDIMENTATION RATE 31 MM/HR (0-20); GFR ESTIMATED > 60; GLUCOSE 93 MG/DL (70-105); POTASSIUM 3.7 MMOL/L (3.6-5.0); SODIUM 144 MMOL/L (135-145); TOTAL PROTEIN 6.5 GM/DL (6.4-8.2)
--- NOTE | 2017-07-20 12:47 | Diagnostic Imaging Report ---
PROCEDURE: CT abdomen and pelvis with contrast. TECHNIQUE: Multiple contiguous axial images were obtained through the abdomen and pelvis after administration of intravenous contrast. INDICATION: Abdominal pain. Fever. Bloody stools. COMPARISON: 06/17/2017 FINDINGS: Included portions of the lung bases are clear. CT abdomen: Postsurgical changes of the stomach are noted. Small bowel loops are nondistended. Normal appendix is identified. The kidneys, adrenal glands, spleen, pancreas, and liver have a normal CT appearance. There is no loculated fluid collection or free air within the abdomen. Small amount of free fluid is noted within the lower pelvis. No abnormal mesenteric or retroperitoneal adenopathy is seen. Bony structures show no acute abnormalities. CT pelvis: Again, small amount of free fluid is noted within the pelvis. There is no loculated fluid collection or free air. Urinary bladder is grossly unremarkable. No abnormal adenopathy is seen. Bony structures show no acute abnormalities. IMPRESSION: 1. Small amount of free fluid within the pelvis; likely physiologic. 2. Otherwise, no acute abnormalities are seen within the abdomen or pelvis. Dictated by: Dictated on workstation # [id number]
[2017-07-20] MEDS ORDERED: fentaNYL INJECTION 100 MCG/2 ML AMP IVP ONE (13:00)
[2017-07-20] MEDS ORDERED: SULF1TAB35 PO (13:17)
[2017-07-20] MEDS ORDERED: METR500T21 PO (13:17)
[2017-07-20] MEDS ORDERED: metroNIDAZOLE 500 MG (FLAGYL) TAB PO ONE (13:45)
[2017-07-20] MEDS ORDERED: TRIM/SULFAMETH 160/800 (SEPTRA DS) TAB PO ONE (13:45)
[2017-07-20 13:50] VITALS: BP 116/91
== END 2017-07-20 13:50 | disposition home or self-care (01) ==
LOC: EDUNIT# 10:41 → ER 10:42
DX: K52.9 Noninfective gastroenteritis and colitis, unspecified (principal); J44.9 Chronic obstructive pulmonary disease, unspecified; G43.909 Migraine, unspecified, not intractable, without status migrainosus; F41.9 Anxiety disorder, unspecified; F43.10 Post-traumatic stress disorder, unspecified; Z82.49 Family history of ischemic heart disease and other diseases of the circulatory system; Z87.19 Personal history of other diseases of the digestive system; Z98.84 Bariatric surgery status; Z88.6 Allergy status to analgesic agent; Z88.8 Allergy status to other drugs, medicaments and biological substances; Z87.59 Personal history of other complications of pregnancy, childbirth and the puerperium; Z98.51 Tubal ligation status
CPT/HCPCS: 36415; 74177; 80053; 80306; 81000; 85025; 85652; 86141; 87045; 87046; 87324; 87449; 96374

== ENCOUNTER → 2017-07-28 | Outpatient (CLI) | payer SELFPAY ==
[~2017-07-28] MED LIST changes: +METR500T21 PO; +SULF1TAB35 PO
== END ==
LOC: PREOP 05:39
PROVIDERS: ATTEND Surgery
DX: Z01.818 Encounter for other preprocedural examination (principal); K92.1 Melena; D64.9 Anemia, unspecified

== ENCOUNTER 2018-03-04 22:51 | Emergency (ER) | payer BC, OTHER ==
[~2018-03-04] VITALS: Ht 160 cm; Wt 84.8 kg
[2018-03-04] MEDS ORDERED: CARB1TAB40 (23:20)
[2018-03-04] MEDS ORDERED: ALPR0.5T7 (23:20)
[2018-03-04] MEDS ORDERED: OXYC-465 (23:20)
[2018-03-04] MEDS ORDERED: MONT10TA24 (23:20)
[2018-03-04] MEDS ORDERED: CLON0.5T13 (23:20)
[2018-03-04] MEDS ORDERED: CNC1KV (23:20)
[2018-03-04] MEDS ORDERED: HYDR50TA76 (23:20)
[2018-03-04] MEDS ORDERED: METH500T7 (23:20)
[2018-03-04] MEDS ORDERED: ESTR0.62 (23:20)
[2018-03-04] MEDS ORDERED: fentaNYL INJECTION 100 MCG/2 ML AMP IVP ONE (23:45)
--- NOTE | 2018-03-04 23:45 | ED GU-Female ---
General Chief Complaint: -Female Stated Complaint: VAGINAL BLEEDING, ABD PAIN, HYSTERECTOMY Nursing Triage Note: VAGINAL BLEEDING S/P HYSTERECTOMY 2016. LOWER ABDOMINAL PAIN. Nursing Sepsis Screen: No Definite Risk Source: patient Exam Limitations: no limitations History of Present Illness Date Seen by Provider: Mar 04, 2018 Time Seen by Provider: 23:35 Initial Comments Patient presents to the ER by private conveyance with chief complaint that the past couple days she's had some abdominal cramping discomfort. None tonight around 5:00 she passed a silver dollar sized blood clot. She says she had a hysterectomy urinary half ago secondary to endometriosis and excessive bleeding. No history of cervical cancer, STI. Last intercourse was 3 weeks ago. The patient states she usually uses oxycodone twice a day and she has not taken her evening dose. The scrotum for her history of multiple back disorders. Allergies and Home Medications Allergies Coded Allergies: latex (Unverified Allergy, Mild, HIVES, 10/06/10) NSAIDS (Non-Steroidal Anti-Inflamma (Verified Allergy, Unknown, 04/26/15) hydromorphone (Verified Allergy, Unknown, 06/14/17) prochlorperazine (Verified Allergy, Unknown, 06/14/17) Home Medications Albuterol Sulfate 1 Puff Puff, 1 PUFF IH Q4H PRN for SHORTNESS OF BREATH, ( Reported) 1 PUFF = 90 MCG Alprazolam 1 Mg Tablet, 1 MG PO TID PRN for ANXIETY, (Reported) Butalb/Acetaminophen/Caffeine 1 Each Capsule, 1 TAB PO Q6H PRN for MIGRAINE, ( Reported) Calcium Citrate/Vitamin D3 1 Each Tablet, 1 TAB PO TID, (Reported) Cyclobenzaprine HCl 10 Mg Tablet, 10 MG PO Q8H PRN for MUSCLE SPASMS, (Reported) Duloxetine HCl 30 Mg Capsule.dr, 30 MG PO DAILY, (Reported) LAST FILLED 12/31/16 #30 Fluticasone/Salmeterol 1 Each Blst.w.dev, 1 PUFF IH BID, (Reported) Gabapentin 800 Mg Tablet, 800 MG PO TID, (Reported) Metronidazole 500 Mg Tablet, 500 MG PO TID Prescribed by: PUSHPA COVARRUBIAS on 07/20/17 1317 Mv,Ca,Min/Iron Fum/FA/Vit K 1 Each Tab.chew, 1 TAB PO DAILY, (Reported) Omeprazole Magnesium 20 Mg Tablet.dr, 20 MG PO DAILY, (Reported) Ondansetron 8 Mg Tab.rapdis, 8 MG PO Q4H PRN for NAUSEA/VOMITING-2ND LINE Prescribed by: JOSE R HAYDEN on 06/17/172010 Oxycodone HCl 10 Mg Tab.er.12h, 10 MG PO BID, (Reported) Polyethylene Glycol 3350 119 Gm Powder, 17 GM PO DAILY PRN for CONSTIPATION-2ND LINE, (Reported) Polyethylene Glycol 3350 17 Gm Powd.pack, 17 GM PO QID PRN for CONSTIPATION-1ST LINE Prescribed by: JOSE R HAYDEN on 06/17/172010 Promethazine HCl 25 Mg Tablet, 25 MG PO Q8H PRN for NAUSEA/VOMITING Prescribed by: PUSHPA COVARRUBIAS on 06/14/17 1612 Promethazine HCl 25 Mg Tablet, 25 MG PO Q6H PRN for NAUSEA/VOMITING Prescribed by: JOSE R HAYDEN on 06/17/172010 Sulfamethoxazole/Trimethoprim 1 Each Tablet, 1 EACH PO BID Prescribed by: PUSHPA COVARRUBIAS on 07/20/17 1317 Tramadol HCl 50 Mg Tablet, 50 MG PO Q6H PRN for PAIN-MODERATE TO SEVERE Prescribed by: JOSE R HAYDEN on 06/17/172010 Patient Home Medication List Home Medication List Reviewed: Yes Review of Systems Review of Systems Constitutional: No chills, No diaphoresis EENTM: No ear pain, No blurred vision Respiratory: No cough, No phlegm Cardiovascular: No chest pain, No edema Gastrointestinal: abdominal pain; No constipation, No nausea Genitourinary: denies discharge, denies dysuria : No Past Ijxyfvn-Ympbqz-Pwjdpn Hx Patient Social History Alcohol Use: Denies Use Recreational Drug Use: No Smoking Status: Current Everyday Smoker Type Used: Cigarettes Recent Foreign Travel: No Contact w/Someone Who Travel: No Recent Infectious Disease Expo: No Recent Hopitalizations: No Immunizations Up To Date Tetanus Booster (TDap): Less than 5yrs Date of Pneumonia Vaccine: Apr 21, 2016 Date of Influenza Vaccine: Feb 19, 2014 Seasonal Allergies Seasonal Allergies: No Past Medical History Surgeries: Yes (GASTRIC BYPASS, D&C, x 3) Abdominal, Section, Gallbladder, Hysterectomy, Tubal Ligation Respiratory: Yes Asthma, COPD Currently Using BIPAP: No Cardiac: No Neurological: Yes Headaches /Migraines : No Hx : 3 Hx Para: 4 Reproductive Disorders: No 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 3.0oz. 84.657486yd; 35.8 BMI Method:Stated General Appearance: WD/WN, no apparent distress HEENT: PERRL/EOMI, pharynx normal Neck: non-tender, normal inspection Cardiovascular: normal peripheral pulses, regular rate, rhythm, no edema Respiratory: chest non-tender, lungs clear, no respiratory distress, no accessory muscle use Gastrointestinal: normal bowel sounds, soft, tenderness (diffuse) Pelvic: normal external exam, no cerv. motion tender, no masses; No discharge, No lesions, No vaginal bleeding Extremities: normal range of motion, normal capillary refill Neurologic/Psychiatric: alert, oriented x 3 Progress/Results/Core Measures Suspected Sepsis Recent Fever Within 48 Hours: No Infection Criteria Present: None New/Unexplained Altered Menta: No Sepsis Screen: No Definite Risk SIRS Temperature:96.2 Pulse: 94 Respiratory Rate: 18 Laboratory Tests 03/04/18 23:51: White Blood Count 7.5 Blood Pressure 120 /83 Mean: 95 Laboratory Tests 03/04/18 23:51: Creatinine 0.79, Platelet Count 370, Total Bilirubin 0.4 Results/Orders Lab Results Laboratory Tests Test 03/04/18 23:35 03/04/18 23:51 Range/Units Urine Color YELLOW Urine Clarity CLEAR Urine pH 5 5-9 Urine Specific [place] 1.005 L 1.016-1.022 Urine Protein NEGATIVE NEGATIVE Urine Glucose (UA) NEGATIVE NEGATIVE Urine Ketones NEGATIVE NEGATIVE Urine Nitrite NEGATIVE NEGATIVE Urine Bilirubin NEGATIVE NEGATIVE Urine Urobilinogen NORMAL NORMAL MG/DL Urine Leukocyte Esterase NEGATIVE NEGATIVE Urine RBC (Auto) 2+ H NEGATIVE Urine RBC NONE /HPF Urine WBC NONE /HPF Urine Squamous Epithelial Cells 0-2 /HPF Urine Crystals NONE /LPF Urine Bacteria FEW H /HPF Urine Casts NONE /LPF Urine Mucus NEGATIVE /LPF Urine Culture Indicated NO Urine Opiates Screen NEGATIVE NEGATIVE Urine Oxycodone Screen POSITIVE H NEGATIVE Urine Methadone Screen NEGATIVE NEGATIVE Urine Propoxyphene Screen NEGATIVE NEGATIVE Urine Barbiturates Screen NEGATIVE NEGATIVE Ur Tricyclic Antidepressants Screen NEGATIVE NEGATIVE Urine Phencyclidine Screen NEGATIVE NEGATIVE Urine Amphetamines Screen NEGATIVE NEGATIVE Urine Methamphetamines Screen NEGATIVE NEGATIVE Urine Benzodiazepines Screen POSITIVE H NEGATIVE Urine Cocaine Screen NEGATIVE NEGATIVE Urine Cannabinoids Screen NEGATIVE NEGATIVE White Blood Count 7.5 4.3-11.0 10^3/uL Red Blood Count 3.90 L 4.35-5.85 10^6/uL Hemoglobin 9.1 L 11.5-16.0 G/DL Hematocrit 30 L 35-52 % Mean Corpuscular Volume 76 L 80-99 FL Mean Corpuscular Hemoglobin 23 L 25-34 PG Mean Corpuscular Hemoglobin Concent 31 L 32-36 G/DL Red Cell Distribution Width 18.4 H 10.0-14.5 % Platelet Count 370 130-400 10^3/uL Mean Platelet Volume 8.8 7.4-10.4 FL Neutrophils (%) (Auto) 57 42-75 % Lymphocytes (%) (Auto) 24 12-44 % Monocytes (%) (Auto) 5 0-12 % Eosinophils (%) (Auto) 14 H 0-10 % Basophils (%) (Auto) 0 0-10 % Neutrophils # (Auto) 4.2 1.8-7.8 X 10^3 Lymphocytes # (Auto) 1.8 1.0-4.0 X 10^3 Monocytes # (Auto) 0.4 0.0-1.0 X 10^3 Eosinophils # (Auto) 1.1 H 0.0-0.3 10^3/uL Basophils # (Auto) 0.0 0.0-0.1 10^3/uL Neutrophils % (Manual) 63 % Lymphocytes % (Manual) 19 % Monocytes % (Manual) 6 % Eosinophils % (Manual) 12 % Hypochromasia SLIGHT Microcytosis SLIGHT Sodium Level 137 135-145 MMOL/L Potassium Level 3.9 3.6-5.0 MMOL/L Chloride Level 104 98-107 MMOL/L Carbon Dioxide Level 20 L 21-32 MMOL/L Anion Gap 13 5-14 MMOL/L Blood Urea Nitrogen 8 7-18 MG/DL Creatinine 0.79 0.60-1.30 MG/DL Estimat Glomerular Filtration Rate > 60 BUN/Creatinine Ratio 10 Glucose Level 92 70-105 MG/DL Calcium Level 9.1 8.5-10.1 MG/DL Corrected Calcium 9.1 8.5-10.1 MG/DL Total Bilirubin 0.4 0.1-1.0 MG/DL Aspartate Amino Transf (AST/SGOT) 16 5-34 U/L Alanine Aminotransferase (ALT/SGPT) < 6 0-55 U/L Alkaline Phosphatase 64 40-136 U/L Total Protein 6.7 6.4-8.2 GM/DL Albumin 4.0 3.2-4.5 GM/DL Lipase 9 8-78 U/L Micro Results Microbiology 03/05/18 Wet Prep - Final, Complete No growth My Orders Orders - JOSE R HAYDEN Cbc With Automated Diff (03/04/18 23:39) Comprehensive Metabolic Panel (03/04/18 23:39) Drug Screen Stat (Urine) (03/04/18 23:39) Lipase (03/04/18 23:39) Ua Culture If Indicated (03/04/18 23:39) Saline Lock/Iv-Start (03/04/18 23:39) Fentanyl Injection (Sublimaze Injection (03/04/18 23:45) Ondansetron Injection (Zofran Injectio (03/05/18 00:00) Manual Differential (03/04/18 23:51) Wet Prep (03/05/18 01:54) Medications Given in ED Current Medications Medications Dose Ordered Sig/Hernan Route Start Time Stop Time Status Last Admin Dose Admin Fentanyl Citrate 50 mcg ONCE ONCE IVP 03/04/18 23:45 03/04/18 23:46 DC 03/05/18 00:08 50 MCG Ondansetron HCl 4 mg ONCE ONCE IVP 03/05/18 00:00 03/05/18 00:01 DC 03/05/18 00:08 4 MG Vital Signs/I&O 03/04/18 23:15 Temp 96.2 Pulse 94 Resp 18 B/P (MAP) 120/83 (95) Pulse Ox 99 O2 Delivery Room Air Capillary Refill : Less Than 3 Seconds Blood Pressure Mean: 95 Progress Note : Time: 02:21 Progress Note The patient's hemoglobin is stable from previous exam on June of this year. She has no evidence of any bleeding coming from her vagina or in her urine. Wet prep was negative and let her follow up outpatient with her [employer]. Departure Impression Primary Impression: History of endometriosis Additional Impression: Cramp, abdominal Disposition: HOME, SELF-CARE Condition: Stable Departure-Patient Inst. Decision time for Depature: 02:24 Referrals: EBEN GRAJEDA (PCP) Primary Care Physician MARGE GALLOWAY MD (Family) Primary Care Physician Patient Instructions: Acute Abdomen (Belly Pain), Adult (DC) Add. Discharge Instructions: Please make an appointment to follow-up in the next couple weeks with your primary care doctor or [employer] [facility] for further evaluation. All discharge instructions reviewed with patient and/or family. Voiced understanding. Copy Copies To 1: JEFF RAYMOND TITUS J Mar 04, 2018 23:45
[2018-03-05] MEDS ORDERED: ONDANSETRON 4 MG/2 ML (SDV) Z0FRAN IVP ONE
[2018-03-05 00:01] LABS: BASOPHILS % (AUTO) 0 % (0-10); EOSINOPHILS # (AUTO) 1.1 10^3/uL (0.0-0.3); EOSINOPHILS % (AUTO) 14 % (0-10); HEMATOCRIT 30 % (35-52); HEMOGLOBIN 9.1 G/DL (11.5-16.0); LYMPHOCYTES # (AUTO) 1.8 X 10^3 (1.0-4.0); LYMPHOCYTES % (AUTO) 24 % (12-44); MEAN CORPUSCULAR HEMOGLOBIN 23 PG (25-34); MEAN CORPUSCULAR HGB CONC 31 G/DL (32-36); MEAN CORPUSCULAR VOLUME 76 FL (80-99); MEAN PLATELET VOLUME 8.8 FL (7.4-10.4); MONOCYTES # (AUTO) 0.4 X 10^3 (0.0-1.0); MONOCYTES % (AUTO) 5 % (0-12); NEUTROPHILS # (AUTO) 4.2 X 10^3 (1.8-7.8); NEUTROPHILS % (AUTO) 57 % (42-75); PLATELET COUNT 370 10^3/uL (130-400); RED CELL DISTRIBUTION WIDTH 18.4 % (10.0-14.5); WHITE BLOOD COUNT 7.5 10^3/uL (4.3-11.0)
[2018-03-05 00:07] LABS: BILIRUBIN,URINE NEGATIVE (NEGATIVE); CLARITY,URINE CLEAR; COLOR,URINE YELLOW; GLUCOSE, URINE (UA) NEGATIVE (NEGATIVE); KETONES,URINE NEGATIVE (NEGATIVE); LEUKOCYTE ESTERASE ,URINE NEGATIVE (NEGATIVE); NITRITE,URINE NEGATIVE (NEGATIVE); PH,URINE 5 (5-9); PROTEIN,URINE NEGATIVE (NEGATIVE); UROBILINOGEN,URINE NORMAL (NORMAL)
[2018-03-05 00:14] LABS: BACTERIA,URINE FEW /HPF; SQUAMOUS EPITHELIAL CELL,UR 0-2 /HPF
[2018-03-05 00:22] LABS: ALANINE AMINOTRANSFERASE < 6 U/L (0-55); ALKALINE PHOSPHATASE 64 U/L (40-136); BILIRUBIN,TOTAL 0.4 MG/DL (0.1-1.0); BUN/CREATININE RATIO 10; CALCIUM 9.1 MG/DL (8.5-10.1); CARBON DIOXIDE 20 MMOL/L (21-32); CHLORIDE 104 MMOL/L (98-107); CREATININE SERUM 0.79 MG/DL (0.60-1.30); GFR ESTIMATED > 60; GLUCOSE 92 MG/DL (70-105); LIPASE 9 U/L (8-78); POTASSIUM 3.9 MMOL/L (3.6-5.0); SODIUM 137 MMOL/L (135-145); TOTAL PROTEIN 6.7 GM/DL (6.4-8.2)
[2018-03-05 01:18] LABS: EOSINOPHILS % (MANUAL) 12 %; LYMPHOCYTES % (MANUAL) 19 %; MONOCYTES % (MANUAL) 6 %; NEUTROPHILS % (MANUAL) 63 %
[2018-03-05 01:19] LABS: HYPOCHROMASIA SLIGHT; MICROCYTOSIS SLIGHT
[2018-03-05 01:59] LABS: BENZODIAZEPINES SCREEN URINE POSITIVE (NEGATIVE); METHADONE STAT NEGATIVE (NEGATIVE); OXYCODONE STAT POSITIVE (NEGATIVE); PROPOXYPHENE STAT NEGATIVE (NEGATIVE)
[2018-03-05 02:00] LABS: AMPHETAMINE SCREEN, URINE NEGATIVE (NEGATIVE); BARBITURATE SCREEN URINE NEGATIVE (NEGATIVE); CANNABINOID SCREEN, URINE NEGATIVE (NEGATIVE); COCAINE SCREEN URINE NEGATIVE (NEGATIVE); METHAMPHETAMINE SCREEN URINE S NEGATIVE (NEGATIVE); OPIATE SCREEN URINE NEGATIVE (NEGATIVE); TRICYCLIC ANTIDEPRESSANTS SCRE NEGATIVE (NEGATIVE)
[2018-03-05 02:31] VITALS: BP 101/61
== END 2018-03-05 02:30 | disposition home or self-care (01) ==
LOC: EDUNIT# 22:51 → ER 22:52
DX: R10.84 Generalized abdominal pain (principal); J44.9 Chronic obstructive pulmonary disease, unspecified; G43.909 Migraine, unspecified, not intractable, without status migrainosus; F41.9 Anxiety disorder, unspecified; F43.10 Post-traumatic stress disorder, unspecified; F17.210 Nicotine dependence, cigarettes, uncomplicated; Z98.51 Tubal ligation status; Z90.710 Acquired absence of both cervix and uterus; Z82.49 Family history of ischemic heart disease and other diseases of the circulatory system; Z87.448 Personal history of other diseases of urinary system; Z98.890 Other specified postprocedural states; Z98.84 Bariatric surgery status; Z87.19 Personal history of other diseases of the digestive system; Z88.6 Allergy status to analgesic agent; Z91.040 Latex allergy status; Z88.8 Allergy status to other drugs, medicaments and biological substances; Z79.51 Long term (current) use of inhaled steroids
CPT/HCPCS: 36415; 80053; 80306; 81000; 83690; 85007; 85027; 87210; 96374; 96375

== ENCOUNTER 2018-06-02 20:02 | Emergency (ER) | payer SELFPAY ==
[~2018-06-02] VITALS: Ht 160 cm; Wt 80.7 kg
[~2018-06-02 20:02] MED LIST changes: +ALPR0.5T7; +CARB1TAB40; +CLON0.5T13; +CNC1KV; +ESTR0.62; +HYDR50TA76; +METH500T7; +METR-197 PO; -METR500T21 PO; +MONT10TA24; +OXYC-465
[2018-06-02] MEDS ORDERED: NS IV 1000 ML 1,000 ML IV SCH (20:50)
--- NOTE | 2018-06-02 21:02 | ED Headache ---
General Chief Complaint: Head/Cervical Problems Stated Complaint: MIGRANE Nursing Triage Note: PATIENT HERE FOR MIGRAINE THAT HAS LASTED 2-3 DAYS. Nursing Sepsis Screen: No Definite Risk Source: patient, family Exam Limitations: no limitations History of Present Illness Date Seen by Provider: Jun 02, 2018 Time Seen by Provider: 20:50 Initial Comments Patient presents to ER by private conveyance with her significant other and chief complaint she's had a headache for the past day. It is unlike her typical headaches. She says she has migraine headaches but they're never throbbing she' s not had them diagnosed by neurology. She usually follows in the ER. Today's headache starts in her right occiput and travels board and her right face. She' s having some left eye pain and a black spot in the middle of her vision today which concerned her. It goes away when she tries to focus on the spot. Typically she goes to the ER get some Fioricet which helps. Recently she is started using some Xanax and Klonopin for anxiety disorder. She also has a history of 3 bulging disks in her low spine for which she is prescribed hydrocodone and gabapentin. She says she is not using either because she does not have insurance. Primary care doctor that she saw wanted her to get an MRI of her head because in the last month she's noted her left pupil to be larger than right as well as her history of headaches. She has not gotten the MRI done either because she still waiting on paperwork. Allergies and Home Medications Allergies Coded Allergies: latex (Unverified Allergy, Mild, HIVES, 10/06/10) NSAIDS (Non-Steroidal Anti-Inflamma (Verified Allergy, Unknown, 04/26/15) hydromorphone (Verified Allergy, Unknown, 06/14/17) prochlorperazine (Verified Allergy, Unknown, 06/14/17) Home Medications Albuterol Sulfate 1 Puff Puff, 1 PUFF IH Q4H PRN for SHORTNESS OF BREATH, ( Reported) 1 PUFF = 90 MCG Alprazolam 1 Mg Tablet, 1 MG PO TID PRN for ANXIETY, (Reported) Butalb/Acetaminophen/Caffeine 1 Each Capsule, 1 TAB PO Q6H PRN for MIGRAINE, ( Reported) Calcium Citrate/Vitamin D3 1 Each Tablet, 1 TAB PO TID, (Reported) Cyclobenzaprine HCl 10 Mg Tablet, 10 MG PO Q8H PRN for MUSCLE SPASMS, (Reported) Duloxetine HCl 30 Mg Capsule.dr, 30 MG PO DAILY, (Reported) LAST FILLED 12/31/16 #30 Fluticasone/Salmeterol 1 Each Blst.w.dev, 1 PUFF IH BID, (Reported) Gabapentin 800 Mg Tablet, 800 MG PO TID, (Reported) Metronidazole 500 Mg Tablet, 500 MG PO TID Prescribed by: PUSHPA COVARRUBIAS on 07/20/17 1317 Mv,Ca,Min/Iron Fum/FA/Vit K 1 Each Tab.chew, 1 TAB PO DAILY, (Reported) Omeprazole Magnesium 20 Mg Tablet.dr, 20 MG PO DAILY, (Reported) Ondansetron 8 Mg Tab.rapdis, 8 MG PO Q4H PRN for NAUSEA/VOMITING-2ND LINE Prescribed by: JOSE R HAYDEN on 06/17/172010 Oxycodone HCl 10 Mg Tab.er.12h, 10 MG PO BID, (Reported) Polyethylene Glycol 3350 119 Gm Powder, 17 GM PO DAILY PRN for CONSTIPATION-2ND LINE, (Reported) Polyethylene Glycol 3350 17 Gm Powd.pack, 17 GM PO QID PRN for CONSTIPATION-1ST LINE Prescribed by: JOSE R HAYDEN on 06/17/172010 Promethazine HCl 25 Mg Tablet, 25 MG PO Q8H PRN for NAUSEA/VOMITING Prescribed by: PUSHPA COVARRUBIAS on 06/14/17 1612 Promethazine HCl 25 Mg Tablet, 25 MG PO Q6H PRN for NAUSEA/VOMITING Prescribed by: JOSE R HAYDEN on 06/17/172010 Sulfamethoxazole/Trimethoprim 1 Each Tablet, 1 EACH PO BID Prescribed by: PUSHPA COVARRUBIAS on 07/20/17 1317 Tramadol HCl 50 Mg Tablet, 50 MG PO Q6H PRN for PAIN-MODERATE TO SEVERE Prescribed by: JOSE R HAYDEN on 06/17/172010 Patient Home Medication List Home Medication List Reviewed: Yes Review of Systems Review of Systems Constitutional: No chills, No diaphoresis, No malaise, No weakness Eyes: Blindness (black spot left eye); Denies Blurred Vision Ears, Nose, Mouth, Throat: denies ear pain, denies ear discharge Respiratory: No cough, No dyspnea on exertion Cardiovascular: No chest pain, No palpitations Gastrointestinal: No abdominal pain, No constipation, No diarrhea Genitourinary: No discharge, No dysuria, No frequency : No (status post hysterectomy) Musculoskeletal: No back pain, No joint pain Past Cemvigt-Ojctdj-Csmztg Hx Patient Social History Alcohol Use: Denies Use Recreational Drug Use: No Smoking Status: Current Everyday Smoker Type Used: Cigarettes 2nd Hand Smoke Exposure: Yes Recent Foreign Travel: No Contact w/Someone Who Travel: No Recent Infectious Disease Expo: No Recent Hopitalizations: No Immunizations Up To Date Tetanus Booster (TDap): Less than 5yrs Date of Pneumonia Vaccine: Apr 21, 2016 Date of Influenza Vaccine: Feb 19, 2014 Seasonal Allergies Seasonal Allergies: No Past Medical History Surgeries: Yes (GASTRIC BYPASS, D&C, x 3) Abdominal, Section, Gallbladder, Hysterectomy, Tubal Ligation Respiratory: Yes Asthma, COPD Currently Using BIPAP: No Cardiac: No Neurological: Yes Headaches /Migraines Reproductive Disorders: No 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 0oz. [id number]; 35.8 BMI Method:Stated General Appearance: WD/WN, mild distress HEENT: normal ENT inspection, TMs normal, pharynx normal, other (pupils are 7 mm right 8 mm left both reactive to light and accommodation, round. Funduscopic exam reveals no cell and flare, hemorrhage or obvious mass. Mild pytosis of the left eye noted. Tonometry notes 12, 13 and 12 on the right eye and 21, 18 and 20 on the left eye.) Neck: non-tender, full range of motion, supple Cardiovascular: normal peripheral pulses, regular rate, rhythm, no edema Respiratory: no respiratory distress, no accessory muscle use Extremities: normal inspection, no pedal edema, normal capillary refill Psychiatric: alert, oriented x 3 Crainal Nerves: normal hearing, normal speech, PERRL Progress/Results/Core Measures Results/Orders Lab Results Laboratory Tests Test 06/02/18 20:57 06/02/18 21:00 Range/Units White Blood Count 6.4 4.3-11.0 10^3/uL Red Blood Count 3.98 L 4.35-5.85 10^6/uL Hemoglobin 8.7 L 11.5-16.0 G/DL Hematocrit 30 L 35-52 % Mean Corpuscular Volume 75 L 80-99 FL Mean Corpuscular Hemoglobin 22 L 25-34 PG Mean Corpuscular Hemoglobin Concent 29 L 32-36 G/DL Red Cell Distribution Width 20.0 H 10.0-14.5 % Platelet Count 328 130-400 10^3/uL Mean Platelet Volume 9.7 7.4-10.4 FL Neutrophils (%) (Auto) 62 42-75 % Lymphocytes (%) (Auto) 20 12-44 % Monocytes (%) (Auto) 7 0-12 % Eosinophils (%) (Auto) 10 0-10 % Basophils (%) (Auto) 1 0-10 % Neutrophils # (Auto) 3.9 1.8-7.8 X 10^3 Lymphocytes # (Auto) 1.3 1.0-4.0 X 10^3 Monocytes # (Auto) 0.4 0.0-1.0 X 10^3 Eosinophils # (Auto) 0.7 H 0.0-0.3 10^3/uL Basophils # (Auto) 0.0 0.0-0.1 10^3/uL Erythrocyte Sedimentation Rate 39 H 0-20 MM/HR Sodium Level 140 135-145 MMOL/L Potassium Level 4.6 3.6-5.0 MMOL/L Chloride Level 108 H 98-107 MMOL/L Carbon Dioxide Level 24 21-32 MMOL/L Anion Gap 8 5-14 MMOL/L Blood Urea Nitrogen 15 7-18 MG/DL Creatinine 0.79 0.60-1.30 MG/DL Estimat Glomerular Filtration Rate > 60 BUN/Creatinine Ratio 19 Glucose Level 99 70-105 MG/DL Calcium Level 8.5 8.5-10.1 MG/DL Corrected Calcium 8.8 8.5-10.1 MG/DL Total Bilirubin 0.3 0.1-1.0 MG/DL Aspartate Amino Transf (AST/SGOT) 15 5-34 U/L Alanine Aminotransferase (ALT/SGPT) 17 0-55 U/L Alkaline Phosphatase 60 40-136 U/L C-Reactive Protein High Sensitivity 0.06 0.00-0.50 MG/DL Total Protein 6.3 L 6.4-8.2 GM/DL Albumin 3.6 3.2-4.5 GM/DL Serum Test, Qualitative NEGATIVE NEGATIVE My Orders Orders - JOSE R HAYDEN Ct Angio Head/Neck (06/02/18 20:50) Cbc With Automated Diff (06/02/18 20:50) Comprehensive Metabolic Panel (06/02/18 20:50) Hs C Reactive Protein (06/02/18 20:50) Hcg,Qualitative Serum (06/02/18 20:50) Erythrocyte Sedimentation Rate (06/02/18 20:50) Saline Lock/Iv-Start (06/02/18 20:50) Ns Iv 1000 Ml (Sodium Chloride 0.9%) (06/02/18 20:50) Ketorolac Injection (Toradol Injection) (06/02/18 21:15) Acetaminophen Tablet (Tylenol Tablet) (06/02/18 21:15) Iohexol Injection (Omnipaque 350 Mg/Ml 1 (06/02/18 21:30) Contrast Received (Contrast Received) (06/02/18 21:30) Sodium Chloride Flush (Catheter Flush Sy (06/02/18 21:30) Ns (Ivpb) (Sodium Chloride 0.9%) (06/02/18 21:30) Butalbital/Apap/Caffeine Tab (Fioricet T (06/02/18 22:05) Fentanyl Injection (Sublimaze Injection (06/02/18 23:15) Diphenhydramine Tablet (Benadryl Tablet) (06/02/18 23:15) Dexamethasone Injection (Decadron Inject (06/02/18 23:15) Medications Given in ED Current Medications Medications Dose Ordered Sig/Hernan Route Start Time Stop Time Status Last Admin Dose Admin Acetaminophen 1,000 mg ONCE ONCE PO 06/02/18 21:15 06/02/18 21:16 DC 06/02/18 21:21 1,000 MG Dexamethasone Sodium Phosphate 4 mg ONCE ONCE IV 06/02/18 23:15 06/02/18 23:16 DC 06/02/18 23:20 4 MG Diphenhydramine HCl 50 mg ONCE ONCE PO 06/02/18 23:15 06/02/18 23:16 DC 06/02/18 23:20 50 MG Fentanyl Citrate 75 mcg ONCE ONCE IVP 06/02/18 23:15 06/02/18 23:16 DC 06/02/18 23:24 75 MCG Iohexol 100 ml ONCE ONCE IV 06/02/18 21:30 06/02/18 21:31 DC 06/02/18 21:54 75 ML Ketorolac Tromethamine 30 mg ONCE ONCE IVP 06/02/18 21:15 06/02/18 21:16 DC 06/02/18 21:21 30 MG Sodium Chloride 10 ml NEEDED PRN IV 06/02/18 21:30 06/02/18 21:54 10 ML Sodium Chloride 250 ml ONCE ONCE IV 06/02/18 21:30 06/02/18 21:31 DC 06/02/18 21:54 80 ML Vital Signs/I&O 06/02/18 20:09 Temp 97.9 Pulse 98 Resp 18 B/P (MAP) 107/64 (78) Pulse Ox 100 Blood Pressure Mean: 78 Progress Progress Note #1: Time: 21:21 Progress Note There are some concerning features on her examination. She says the worst headache of her life and it does not really sound like a migraine headache. She has some visual disturbances of a black spot in the center of her vision on the left eye as well as pain in her right occiput. She says in the past NSAIDs and Tylenol have not helped her. She does not use NSAIDs routinely because of her history of gastric bypass surgery. No other significant medical history. She has a little mild ptosis on the left eye and a wider although reactive pupil in the left eye. Funduscopic exam is not remarkable for anything that looks like infection. We'll get a CRP and ESR as well as some basic labs which so far have revealed an anemia with hemoglobin of 8. the review of K-tracs is fairly benign showing the last time she got her Valium, hydrocodone and Xanax back in September. While she does have elevated pressure in the left eye it's not exactly severe glaucoma. Plan to get a CT of her head at first and then if it's negative we will get a CT with angiogram of her head and neck to rule out cerebrovascular dissection or occlusion. Progress Note #2: Time: 23:01 Progress Note While we were unable to find any dangerous pathology tonight she does have her anemia she is to follow-up with her primary doctor for. She states that her pain is not any better after the Fioricet or the ketorolac or Tylenol. We will give her a shot of fentanyl, Decadron and Benadryl. Progress Note #3: Time: 23:44 Progress Note Pain is improved. We'll send her home with Percocet plans to follow-up tomorrow with primary care. We discussed her anemia and she says she's has known anemia but 9 is is the lowest it has been. Diagnostic Imaging Diagonstic Imaging: CT Plain Films/CT/US/NM/MRI: head Comments No intracranial hemorrhage, mass effect, tumor, midline shift or calvarial fracture. Reviewed: Reviewed [place] Hawk Study, Reviewed by Me Diagonstic Imaging: CT (angio) Plain Films/CT/US/NM/MRI: head (neck) Comments No acute findings and the arteries of the head. Normal neck CTA. Reviewed: Reviewed [place] Study, Reviewed by Me Departure Impression Primary Impression: Headache Qualified Codes: R51 - Headache Additional Impressions: Visual disturbance of one eye Anemia Qualified Codes: D64.9 - Anemia, unspecified Disposition: 01 HOME, SELF-CARE Condition: Improved Departure-Patient Inst. Decision time for Depature: 23:45 Referrals: JAREN KEBEDE MD (PCP/Family) Primary Care Physician Patient Instructions: Headache, Adult (DC) Add. Discharge Instructions: Call your primary care doctor tomorrow and get an appointment to follow-up as soon as possible to discuss your headaches as well as your low blood counts. Use Tylenol 650 mg every 8 hours in addition to Percocet 1 tablet every 6 hours. All discharge instructions reviewed with patient and/or family. Voiced understanding. Scripts Oxycodone HCl/Acetaminophen (Percocet 5-325 mg Tablet) 1 Each Tablet 1 EACH PO Q6H PRN for PAIN-MODERATE MDD 6 for 7 Days, #14 TAB 0 Refills Prov: JOSE R HAYDEN 06/02/18 JOSE R HAYDEN J Jun 02, 2018 21:02
[2018-06-02 21:05] LABS: BASOPHILS % (AUTO) 1 % (0-10); EOSINOPHILS # (AUTO) 0.7 10^3/uL (0.0-0.3); EOSINOPHILS % (AUTO) 10 % (0-10); HEMATOCRIT 30 % (35-52); HEMOGLOBIN 8.7 G/DL (11.5-16.0); LYMPHOCYTES # (AUTO) 1.3 X 10^3 (1.0-4.0); LYMPHOCYTES % (AUTO) 20 % (12-44); MEAN CORPUSCULAR HEMOGLOBIN 22 PG (25-34); MEAN CORPUSCULAR HGB CONC 29 G/DL (32-36); MEAN CORPUSCULAR VOLUME 75 FL (80-99); MEAN PLATELET VOLUME 9.7 FL (7.4-10.4); MONOCYTES # (AUTO) 0.4 X 10^3 (0.0-1.0); MONOCYTES % (AUTO) 7 % (0-12); NEUTROPHILS # (AUTO) 3.9 X 10^3 (1.8-7.8); NEUTROPHILS % (AUTO) 62 % (42-75); PLATELET COUNT 328 10^3/uL (130-400); RED BLOOD COUNT 3.98 10^6/uL (4.35-5.85); WHITE BLOOD COUNT 6.4 10^3/uL (4.3-11.0)
[2018-06-02] MEDS ORDERED: KETOROLAC 30 MG/ML VIAL IVP ONE (21:15)
[2018-06-02] MEDS ORDERED: ACETAMINOPHEN 500 MG TAB (TYLENOL) PO ONE (21:15)
[2018-06-02] MEDS ORDERED: NS 250 ML (IVPB) BAG IV ONE (21:30)
[2018-06-02] MEDS ORDERED: RECEIVED CONTRAST (Hold Metformin) IV SCH (21:30)
[2018-06-02] MEDS ORDERED: IOHEXOL 350 MG/ML 100 ML (OMNIPAQUE 350) VIAL IV ONE (21:30)
[2018-06-02] MEDS ORDERED: CATHETER FLUSH 10 ML SYR IV PRN (21:30)
[2018-06-02 21:32] LABS: ERYTHROCYTE SEDIMENTATION RATE 39 MM/HR (0-20)
[2018-06-02 21:39] LABS: ALANINE AMINOTRANSFERASE 17 U/L (0-55); ALBUMIN 3.6 GM/DL (3.2-4.5); ALKALINE PHOSPHATASE 60 U/L (40-136); BILIRUBIN,TOTAL 0.3 MG/DL (0.1-1.0); BUN/CREATININE RATIO 19; CALCIUM 8.5 MG/DL (8.5-10.1); CARBON DIOXIDE 24 MMOL/L (21-32); CHLORIDE 108 MMOL/L (98-107); CREATININE SERUM 0.79 MG/DL (0.60-1.30); GFR ESTIMATED > 60; GLUCOSE 99 MG/DL (70-105); POTASSIUM 4.6 MMOL/L (3.6-5.0); SODIUM 140 MMOL/L (135-145); TOTAL PROTEIN 6.3 GM/DL (6.4-8.2)
[2018-06-02] MEDS ORDERED: ACET/BUTAL/CAFF (FIORICET) TAB PO STA (22:05)
[2018-06-02] MEDS ORDERED: fentaNYL INJECTION 100 MCG/2 ML AMP IVP ONE (23:15)
[2018-06-02] MEDS ORDERED: diphenhydrAMINE 25 MG TAB (BENADRYL) PO ONE (23:15)
[2018-06-02] MEDS ORDERED: DEXAMETHASONE 4 MG/ML SDV (DECADRON) IV ONE (23:15)
[2018-06-02] MEDS ORDERED: OXYC1TAB87 PO (23:47)
[2018-06-03] MEDS ORDERED: RX-OXYCODONE/APAP 5-325 MG #4 TAB PK PO PRN
[2018-06-03 00:28] VITALS: BP 117/76
--- NOTE | 2018-06-03 07:08 | Diagnostic Imaging Report ---
PROCEDURE: CT angiography of the head and CT angiography of the neck with and without contrast. TECHNIQUE: Contiguous noncontrast images were obtained from the skull base through the vertex. After intravenous contrast administration, helical CT angiography of the neck was performed. Source data was reformatted into multiple MIP projections. Delayed post contrast acquisition was also obtained. INDICATION: Migraine headaches. History of uterine cancer with hysterectomy. Comparison with MRI of the brain 04/29/2017. FINDINGS: CT HEAD: There is no evidence of intracranial hemorrhage. Ventricles and cortical gyral pattern are normal. No mass effect. Basal cisterns are clear. Following IV contrast injection angiographic images show normal intracranial vessels. There is no evidence of aneurysm. No evidence of obstructive process. [place] appears normal. The aortic arch is opacified. Cervical vessels show normal takeoff. The carotid and vertebral arteries appear normal throughout the neck. Both vertebral arteries supply the basilar artery. The surrounding soft tissues appear normal. IMPRESSION: Normal CT angiography of the head and neck. Dictated by: Dictated on workstation # [id number]
== END 2018-06-03 00:31 | disposition home or self-care (01) ==
LOC: EDUNIT# 20:02 → ER 20:04
DX: R51 Headache (principal); D64.9 Anemia, unspecified; H53.9 Unspecified visual disturbance; F41.9 Anxiety disorder, unspecified; F43.10 Post-traumatic stress disorder, unspecified; J44.9 Chronic obstructive pulmonary disease, unspecified; F17.210 Nicotine dependence, cigarettes, uncomplicated; Z98.84 Bariatric surgery status; Z98.890 Other specified postprocedural states; Z82.49 Family history of ischemic heart disease and other diseases of the circulatory system; Z87.19 Personal history of other diseases of the digestive system; Z98.51 Tubal ligation status; Z91.040 Latex allergy status; Z88.6 Allergy status to analgesic agent; Z88.8 Allergy status to other drugs, medicaments and biological substances; Z79.51 Long term (current) use of inhaled steroids; Z86.69 Personal history of other diseases of the nervous system and sense organs; Z90.710 Acquired absence of both cervix and uterus; Z85.42 Personal history of malignant neoplasm of other parts of uterus
CPT/HCPCS: 36415; 70496; 70498; 80053; 84703; 85025; 85652; 86141; 96361; 96374; 96375

== ENCOUNTER 2018-08-14 16:36 | Emergency (ER) | payer OTHER ==
[~2018-08-14] VITALS: Ht 160 cm; Wt 76.2 kg
[~2018-08-14 16:36] MED LIST changes: +GABA800T10 PO; -GABA800T2 PO; +METR-145 PO; -METR-197 PO; +OXYC1TAB87 PO
[2018-08-14] MEDS ORDERED: HYOSCYAMINE 0.125 MG (LEVSIN) TAB SL ONE (18:00)
--- NOTE | 2018-08-14 18:15 | ED GI ---
General Chief Complaint: Abdominal/GI Problems Stated Complaint: L SIDE PAIN/POSS BLOCKAGE Nursing Triage Note: Ambulatory to rm 9. Pt reports hx of gastric bypass. Pt c/o abdominal pain that began on Wednesday. Pt reports going to [facility] ED and had a CT with contrast. Pt reports being told there is scar tissue the side of a salad plate on the L side. Pt reports then being transferred to [place] where x-rays were performed, but was told nothing could be seen through the scar tissue. Pt reports being diagnosed with a small bowel obstruction. Pt reports bending over and twisting today helping hook a vehicle up to a tow truck. Pt reports the pain now feels like a contraction that comes and goes. That pain began at 1500. Pt reports normal BM this morning and is passing gas, and feels stomach rumblng. Pt reports being on a light diet. Pt reports fever last night and last took Tylenol for pain at 0600. Pt reports being unable to take dilaudid, NSAIDs, morphine, but demerol works for pain. Sepsis Screen: No Definite Risk History of Present Illness Date Seen by Provider: Aug 14, 2018 Time Seen by Provider: 17:15 Initial Comments 32-year-old female presents for left abdominal pain. She has a long hand standing history of multiple abdominal problems. She was evaluated over the [facility] er department Emergency Department and [place] Emergency Department. She Reports That She Was Diagnosed with a Bowel Obstruction and Had an NG Tube Placed for Some Time but Had No return, so was removed. Reviewed reports from [place], including a UA that was normal, CBC with a white count of 7. Patient is smiling and talkative but rates her pain at 9/10. She last had Tylenol at 0900 today. She states her pain was manageable today until she helped her brother lift a chain for a tow truck. She reports the pain to be cramping and intermittent. Timing/Duration: 3-4 Days Severity/Quality: Mild Location: LUQ, LLQ Radiation: No Radiation Activities at Onset: None Associated Symptoms: Denies Symptoms; No Back Pain, No Chest Pain, No Fever/ Chills, No Heartburn, No Nausea/Vomiting, No Swelling/Mass in Abdomen Allergies and Home Medications Allergies Coded Allergies: latex (Unverified Allergy, Mild, HIVES, 10/06/10) NSAIDS (Non-Steroidal Anti-Inflamma (Verified Allergy, Unknown, 04/26/15) hydromorphone (Verified Allergy, Unknown, 06/14/17) prochlorperazine (Verified Allergy, Unknown, 06/14/17) Home Medications Albuterol Sulfate 1 Puff Puff, 1 PUFF IH Q4H PRN for SHORTNESS OF BREATH, ( Reported) 1 PUFF = 90 MCG Alprazolam 1 Mg Tablet, 1 MG PO TID PRN for ANXIETY, (Reported) Butalb/Acetaminophen/Caffeine 1 Each Capsule, 1 TAB PO Q6H PRN for MIGRAINE, ( Reported) Calcium Citrate/Vitamin D3 1 Each Tablet, 1 TAB PO TID, (Reported) Cyclobenzaprine HCl 10 Mg Tablet, 10 MG PO Q8H PRN for MUSCLE SPASMS, (Reported) Duloxetine HCl 30 Mg Capsule.dr, 30 MG PO DAILY, (Reported) LAST FILLED 12/31/16 #30 Fluticasone/Salmeterol 1 Each Blst.w.dev, 1 PUFF IH BID, (Reported) Gabapentin 800 Mg Tablet, 800 MG PO TID, (Reported) Metronidazole 500 Mg Tablet, 500 MG PO TID Prescribed by: PUSHPA COVARRUBIAS on 07/20/17 1317 Mv,Ca,Min/Iron Fum/FA/Vit K 1 Each Tab.chew, 1 TAB PO DAILY, (Reported) Omeprazole Magnesium 20 Mg Tablet.dr, 20 MG PO DAILY, (Reported) Ondansetron 8 Mg Tab.rapdis, 8 MG PO Q4H PRN for NAUSEA/VOMITING-2ND LINE Prescribed by: JOSE R HAYDEN on 06/17/17 2011 Oxycodone HCl 10 Mg Tab.er.12h, 10 MG PO BID, (Reported) Oxycodone HCl/Acetaminophen 1 Each Tablet, 1 EACH PO Q6H PRN for PAIN-MODERATE Prescribed by: JOSE R HAYDEN on 06/02/18 3297 Polyethylene Glycol 3350 119 Gm Powder, 17 GM PO DAILY PRN for CONSTIPATION-2ND LINE, (Reported) Polyethylene Glycol 3350 17 Gm Powd.pack, 17 GM PO QID PRN for CONSTIPATION-1ST LINE Prescribed by: JOSE R HAYDEN on 06/17/172010 Promethazine HCl 25 Mg Tablet, 25 MG PO Q8H PRN for NAUSEA/VOMITING Prescribed by: PUSHPA COVARRUBIAS on 06/14/17 1612 Promethazine HCl 25 Mg Tablet, 25 MG PO Q6H PRN for NAUSEA/VOMITING Prescribed by: JOSE R HAYDEN on 06/17/172010 Sulfamethoxazole/Trimethoprim 1 Each Tablet, 1 EACH PO BID Prescribed by: PUSHPA COVARRUBIAS on 07/20/17 1317 Tramadol HCl 50 Mg Tablet, 50 MG PO Q6H PRN for PAIN-MODERATE TO SEVERE Prescribed by: JOSE R HAYDEN on 06/17/172010 Patient Home Medication List Home Medication List Reviewed: Yes Review of Systems Review of Systems Constitutional: no symptoms reported, see HPI Gastrointestinal: See HPI, Abdominal Pain All Other Systems Reviewed Negative Unless Noted: Yes Past Tvkfqlg-Momwxm-Xfzhyr Hx Past Med/Social Hx: Reviewed Nursing Past Med/Soc Hx Patient Social History Alcohol Use: Denies Use Recreational Drug Use: No Smoking Status: Current Everyday Smoker Type Used: Cigarettes 2nd Hand Smoke Exposure: Yes Recent Foreign Travel: No Contact w/Someone Who Travel: No Recent Infectious Disease Expo: No Recent Hopitalizations: No Physical Abuse: No Sexual Abuse: No Immunizations Up To Date Tetanus Booster (TDap): Less than 5yrs Date of Pneumonia Vaccine: Apr 21, 2016 Date of Influenza Vaccine: Feb 19, 2014 Seasonal Allergies Seasonal Allergies: No Past Medical History Surgeries: Yes (GASTRIC BYPASS, D&C, x 3) Abdominal, Section, Gallbladder, Hysterectomy, Tubal Ligation Respiratory: Yes Asthma, COPD Currently Using BIPAP: No Cardiac: No Neurological: Yes Headaches /Migraines Reproductive Disorders: No Female Reproductive Disorders: 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 0oz. [id number]; 35.8 BMI Method:Stated General Appearance: WD/WN, no apparent distress HEENT: normal ENT inspection, TMs normal, pharynx normal Neck: non-tender, supple, normal inspection Respiratory: chest non-tender, lungs clear, normal breath sounds Cardiovascular: normal peripheral pulses, regular rate, rhythm Gastrointestinal: normal bowel sounds, soft; No distended, No guarding, No rebound; tenderness (trace tenderness right upper and lower quadrant to palpation.); No mass, No hepatomegaly, No spleenomegaly Neurologic/Psychiatric: no motor/sensory deficits, alert, normal mood/affect, oriented x 3 Skin: normal color, warm/dry Lymphatic: no adenopathy Progress/Results/Core Measures Results/Orders My Orders Orders - KALINA PINTO Hyoscyamine Sl Tablet (Levsin Sl Tablet) (08/14/18 18:00) Tramadol Tablet (Ultram Tablet) (08/14/18 17:59) Medications Given in ED Current Medications Medications Dose Ordered Sig/Hernan Route Start Time Stop Time Status Last Admin Dose Admin Hyoscyamine Sulfate 0.125 mg ONCE ONCE SL 08/14/18 18:00 08/14/18 18:01 DC 08/14/18 18:13 0.125 MG Vital Signs/I&O 08/14/18 08/14/18 16:45 18:55 Temp 97.5 97.5 Pulse 89 82 Resp 18 15 B/P (MAP) 121/83 (96) 115/76 (89) Pulse Ox 98 98 O2 Delivery Room Air Room Air Blood Pressure Mean: 96 Progress Progress Note : Time: 17:15 Progress Note Patient seen and evaluated, reviewed records from [place]. The patient has active bowel sounds and reports that she had a bowel movement this morning with no diarrhea. Discussed that repeating the labs or the CT is not indicated at this time as her vital signs are stable, and that is a significant amount of radiation in a short time frame. However, if her vital signs her exam warranted a CT study I would be willing to do that. We will try Levsin 0.125 mg sublingual and tramadol 50 mg by mouth. 1800 patient refused the tramadol, told the nurse that her body does not metabolize tramadol and it does not help her. She did not request a substitution for her pain management. 1830 patient reports slight improvement in symptoms. Offered Tylenol since she did not want to tramadol patient declined. Discharge instructions and return precautions reviewed. Departure Impression Primary Impression: Pain, abdominal, LLQ Additional Impression: Pain, abdominal, LUQ Disposition: 01 HOME, SELF-CARE Condition: Improved Departure-Patient Inst. Referrals: JAREN KEBEDE MD (PCP/Family) Primary Care Physician Patient Instructions: Acute Abdomen (Belly Pain), Adult (DC), Irritable Bowel Syndrome (DC) Add. Discharge Instructions: [place] diet as tolerated. No heavy lifting or aggressive activity. Take Tylenol 650 mg orally every 6-8 hours as needed for pain. Follow-up with their primary care provider if symptoms are not improving or worsen. Consider repeat colonoscopy. Resume taking her Carafate as previously ordered. Return to emergency department for increased abdominal pain with associated vomiting or diarrhea, difficulty breathing, fever greater than 101 not relieved by Tylenol or ibuprofen. All discharge instructions reviewed with patient and/or family. Voiced understanding. KALINA PINTO Aug 14, 2018 18:15
--- NOTE | 2018-08-14 18:18 | NUR ---
Pt refused tramadol stating, "My body does not metabolize tramadol at all." Maddison Leigh notified pt refused medication.
[2018-08-14 18:55] VITALS: BP 115/76
== END 2018-08-14 18:55 | disposition home or self-care (01) ==
LOC: EDUNIT# 16:36 → ER 16:37
DX: R10.12 Left upper quadrant pain (principal); R10.32 Left lower quadrant pain; J44.9 Chronic obstructive pulmonary disease, unspecified; G43.909 Migraine, unspecified, not intractable, without status migrainosus; K58.9 Irritable bowel syndrome, unspecified; F41.9 Anxiety disorder, unspecified; F43.10 Post-traumatic stress disorder, unspecified; F17.210 Nicotine dependence, cigarettes, uncomplicated; Z98.84 Bariatric surgery status; Z98.890 Other specified postprocedural states; Z82.49 Family history of ischemic heart disease and other diseases of the circulatory system; Z90.710 Acquired absence of both cervix and uterus; Z98.51 Tubal ligation status; Z91.040 Latex allergy status; Z88.6 Allergy status to analgesic agent; Z88.8 Allergy status to other drugs, medicaments and biological substances; Z79.51 Long term (current) use of inhaled steroids
CPT/HCPCS: 99283

== ENCOUNTER 2019-02-25 18:34 | Emergency (ER) | payer OTHER ==
[~2019-02-25] VITALS: Ht 160 cm; Wt 76.2 kg
[~2019-02-25 18:34] MED LIST changes: -DULO30CA48 PO; +DULO30CA49 PO
--- NOTE | 2019-02-25 18:51 | ED Abdominal Pain ---
General Chief Complaint: Abdominal/GI Problems Stated Complaint: ABDOMINAL PAIN Nursing Triage Note: C/O ABDOMEN PAIN AND BLOATING WITH WHITE STOOLS Sepsis Screen: No Definite Risk Source of Information: Patient Exam Limitations: No Limitations History of Present Illness Date Seen by Provider: Feb 25, 2019 Time Seen by Provider: 18:46 Initial Comments To ER with abdominal pain, bloating and "white stools" for 2 days. She is passing gas. No fevers or chills. Previous history of cholecystectomy. History of bowel obstruction in 2017. Timing/Duration: 1-2 Days Severity/Quality: Moderate Location: Generalized Abdomen Radiation: No Radiation Activities at Onset: None Allergies and Home Medications Allergies Coded Allergies: latex (Unverified Allergy, Mild, HIVES, 10/06/10) NSAIDS (Non-Steroidal Anti-Inflamma (Verified Allergy, Unknown, 04/26/15) hydromorphone (Verified Allergy, Unknown, 06/14/17) prochlorperazine (Verified Allergy, Unknown, 06/14/17) Home Medications Albuterol Sulfate 1 Puff Puff, 1 PUFF IH Q4H PRN for SHORTNESS OF BREATH, (Reported) 1 PUFF = 90 MCG Alprazolam 1 Mg Tablet, 1 MG PO TID PRN for ANXIETY, (Reported) Butalb/Acetaminophen/Caffeine 1 Each Capsule, 1 TAB PO Q6H PRN for MIGRAINE, (Reported) Calcium Citrate/Vitamin D3 1 Each Tablet, 1 TAB PO TID, (Reported) Cyclobenzaprine HCl 10 Mg Tablet, 10 MG PO Q8H PRN for MUSCLE SPASMS, (Reported) Duloxetine HCl 30 Mg Capsule.dr, 30 MG PO DAILY, (Reported) LAST FILLED 12/31/16 #30 Fluticasone/Salmeterol 1 Each Blst.w.dev, 1 PUFF IH BID, (Reported) Gabapentin 800 Mg Tablet, 800 MG PO TID, (Reported) Metronidazole 500 Mg Tablet, 500 MG PO TID Prescribed by: PUSHPA COVARRUBIAS on 07/20/17 1317 Mv,Ca,Min/Iron Fum/FA/Vit K 1 Each Tab.chew, 1 TAB PO DAILY, (Reported) Omeprazole Magnesium 20 Mg Tablet.dr, 20 MG PO DAILY, (Reported) Ondansetron 8 Mg Tab.rapdis, 8 MG PO Q4H PRN for NAUSEA/VOMITING-2ND LINE Prescribed by: JOSE R HAYDEN on 06/17/17 2011 Oxycodone HCl 10 Mg Tab.er.12h, 10 MG PO BID, (Reported) Oxycodone HCl/Acetaminophen 1 Each Tablet, 1 EACH PO Q6H PRN for PAIN-MODERATE Prescribed by: JOSE R HAYDEN on 06/02/18 2347 Polyethylene Glycol 3350 119 Gm Powder, 17 GM PO DAILY PRN for CONSTIPATION-2ND LINE, (Reported) Polyethylene Glycol 3350 17 Gm Powd.pack, 17 GM PO QID PRN for CONSTIPATION-1ST LINE Prescribed by: JOSE R HAYDEN on 06/17/172010 Promethazine HCl 25 Mg Tablet, 25 MG PO Q8H PRN for NAUSEA/VOMITING Prescribed by: PUSHPA COVARRUBIAS on 06/14/17 1612 Promethazine HCl 25 Mg Tablet, 25 MG PO Q6H PRN for NAUSEA/VOMITING Prescribed by: JOSE R HAYDEN on 06/17/172010 Sulfamethoxazole/Trimethoprim 1 Each Tablet, 1 EACH PO BID Prescribed by: PUSHPA COVARRUBIAS on 07/20/17 1317 Tramadol HCl 50 Mg Tablet, 50 MG PO Q6H PRN for PAIN-MODERATE TO SEVERE Prescribed by: JOSE R HAYDEN on 06/17/172010 Patient Home Medication List Home Medication List Reviewed: Yes Review of Systems Review of Systems Constitutional: see HPI EENTM: No Symptoms Reported Respiratory: No Symptoms Reported Cardiovascular: No Symptoms Reported Gastrointestinal: See HPI, Abdominal Pain, Nausea, Vomiting Genitourinary: No Symptoms Reported Musculoskeletal: no symptoms reported Skin: no symptoms reported Psychiatric/Neurological: No Symptoms Reported Endocrine: No Symptoms Reported Past Kpfsesf-Dhtaxo-Xkqqfy Hx Patient Social History Alcohol Use: Denies Use Recreational Drug Use: No Smoking Status: Current Everyday Smoker Type Used: Cigarettes 2nd Hand Smoke Exposure: Yes Recent Foreign Travel: No Contact w/Someone Who Travel: No Recent Infectious Disease Expo: No Recent Hopitalizations: No Immunizations Up To Date Tetanus Booster (TDap): Less than 5yrs Date of Pneumonia Vaccine: Apr 21, 2016 Date of Influenza Vaccine: Feb 19, 2014 Seasonal Allergies Seasonal Allergies: No Past Medical History Surgeries: Yes (GASTRIC BYPASS, D&C, x 3) Abdominal, Section, Gallbladder, Hysterectomy, Tubal Ligation Respiratory: Yes Asthma, COPD Currently Using BIPAP: No Cardiac: No Neurological: Yes Headaches /Migraines Reproductive Disorders: No Female Reproductive Disorders: Menstrual Problems 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 0oz. 76.591877hi; 35.8 BMI Method:Stated General Appearance: WD/WN, no apparent distress HEENT: PERRL/EOMI, normal ENT inspection Respiratory: no respiratory distress, no accessory muscle use Gastrointestinal: normal bowel sounds, soft, tenderness Extremities: normal range of motion, non-tender Neurologic/Psychiatric: alert, normal mood/affect, oriented x 3 Skin: normal color, warm/dry Progress/Results/Core Measures Results/Orders Lab Results Laboratory Tests Test 02/25/19 18:45 02/25/19 18:50 Range/Units White Blood Count 5.6 4.3-11.0 10^3/uL Red Blood Count 4.61 4.35-5.85 10^6/uL Hemoglobin 10.3 L 11.5-16.0 G/DL Hematocrit 34 L 35-52 % Mean Corpuscular Volume 74 L 80-99 FL Mean Corpuscular Hemoglobin 22 L 25-34 PG Mean Corpuscular Hemoglobin Concent 30 L 32-36 G/DL Red Cell Distribution Width 19.5 H 10.0-14.5 % Platelet Count 510 H 130-400 10^3/uL Mean Platelet Volume 8.3 7.4-10.4 FL Neutrophils (%) (Auto) 64 42-75 % Lymphocytes (%) (Auto) 21 12-44 % Monocytes (%) (Auto) 7 0-12 % Eosinophils (%) (Auto) 8 0-10 % Basophils (%) (Auto) 1 0-10 % Neutrophils # (Auto) 3.6 1.8-7.8 X 10^3 Lymphocytes # (Auto) 1.2 1.0-4.0 X 10^3 Monocytes # (Auto) 0.4 0.0-1.0 X 10^3 Eosinophils # (Auto) 0.4 H 0.0-0.3 10^3/uL Basophils # (Auto) 0.0 0.0-0.1 10^3/uL Sodium Level 140 135-145 MMOL/L Potassium Level 4.5 3.6-5.0 MMOL/L Chloride Level 107 98-107 MMOL/L Carbon Dioxide Level 23 21-32 MMOL/L Anion Gap 10 5-14 MMOL/L Blood Urea Nitrogen 14 7-18 MG/DL Creatinine 0.80 0.60-1.30 MG/DL Estimat Glomerular Filtration Rate > 60 BUN/Creatinine Ratio 18 Glucose Level 93 70-105 MG/DL Calcium Level 8.9 8.5-10.1 MG/DL Corrected Calcium 8.9 8.5-10.1 MG/DL Total Bilirubin 0.3 0.1-1.0 MG/DL Aspartate Amino Transf (AST/SGOT) 22 5-34 U/L Alanine Aminotransferase (ALT/SGPT) 7 0-55 U/L Alkaline Phosphatase 74 40-136 U/L Total Protein 7.1 6.4-8.2 GM/DL Albumin 4.0 3.2-4.5 GM/DL Serum Test, Qualitative NEGATIVE NEGATIVE Urine Color YELLOW Urine Clarity CLEAR Urine pH 8 5-9 Urine Specific [place] 1.010 L 1.016-1.022 Urine Protein NEGATIVE NEGATIVE Urine Glucose (UA) NEGATIVE NEGATIVE Urine Ketones NEGATIVE NEGATIVE Urine Nitrite NEGATIVE NEGATIVE Urine Bilirubin NEGATIVE NEGATIVE Urine Urobilinogen NORMAL NORMAL MG/DL Urine Leukocyte Esterase NEGATIVE NEGATIVE Urine RBC (Auto) NEGATIVE NEGATIVE Urine RBC NONE /HPF Urine WBC NONE /HPF Urine Squamous Epithelial Cells 2-5 /HPF Urine Crystals NONE /LPF Urine Bacteria NEGATIVE /HPF Urine Casts NONE /LPF Urine Mucus NEGATIVE /LPF Urine Culture Indicated NO Urine Opiates Screen NEGATIVE NEGATIVE Urine Oxycodone Screen NEGATIVE NEGATIVE Urine Methadone Screen NEGATIVE NEGATIVE Urine Propoxyphene Screen NEGATIVE NEGATIVE Urine Barbiturates Screen NEGATIVE NEGATIVE Ur Tricyclic Antidepressants Screen NEGATIVE NEGATIVE Urine Phencyclidine Screen NEGATIVE NEGATIVE Urine Amphetamines Screen NEGATIVE NEGATIVE Urine Methamphetamines Screen NEGATIVE NEGATIVE Urine Benzodiazepines Screen NEGATIVE NEGATIVE Urine Cocaine Screen NEGATIVE NEGATIVE Urine Cannabinoids Screen NEGATIVE NEGATIVE My Orders Orders - COVARRUBIAS,PETER J PASTE THINNER Cbc With Automated Diff (02/25/19 18:40) Comprehensive Metabolic Panel (02/25/19 18:40) Hcg,Qualitative Serum (02/25/19 18:40) Ua Culture If Indicated (02/25/19 18:40) Drug Screen Stat (Urine) (02/25/19 18:40) Ed Iv/Invasive Line Start (02/25/19 18:40) Ct Abdomen/Pelvis W (02/25/19 18:45) Iohexol Injection (Omnipaque 350 Mg/Ml 1 (02/25/19 19:00) Received Contrast (Hold Metformin- Contr (02/25/19 19:00) Ns (Ivpb) (Sodium Chloride 0.9% Ivpb Bag (02/25/19 19:00) Diphenhydramine Tablet (Benadryl Tablet) (02/25/19 20:30) Medications Given in ED Current Medications Medications Dose Ordered Sig/Hernan Route Start Time Stop Time Status Last Admin Dose Admin Diphenhydramine HCl 25 mg ONCE ONCE PO 02/25/19 20:30 02/25/19 20:31 DC 02/25/19 20:21 25 MG Iohexol 100 ml ONCE ONCE IV 02/25/19 19:00 02/25/19 19:06 DC 02/25/19 20:40 96 ML Sodium Chloride 100 ml ONCE ONCE IV 02/25/19 19:00 02/25/19 19:06 DC 02/25/19 20:40 80 ML Vital Signs/I&O 02/25/19 18:43 Temp 98.0 Pulse 86 Resp 18 B/P (MAP) 126/94 (105) Pulse Ox 97 Blood Pressure Mean: 105 Departure Impression Primary Impression: Constipation Qualified Codes: K59.00 - Constipation, unspecified Disposition: HOME, SELF-CARE Condition: Stable Departure-Patient Inst. Decision time for Depature: 21:03 Referrals: NO,LOCAL PHYSICIAN (PCP/Family) Primary Care Physician Patient Instructions: Constipation, Adult (DC) Add. Discharge Instructions: 1. If you have MiraLAX at home go ahead and take that. One capful dissolved in an 8 ounce glass of water every 15 minutes until bowel movement. All discharge instructions reviewed with patient and/or family. Voiced understanding. PUSHPA COVARRUBIAS APRN Feb 25, 2019 18:51
[2019-02-25 18:58] LABS: BASOPHILS % (AUTO) 1 % (0-10); EOSINOPHILS # (AUTO) 0.4 10^3/uL (0.0-0.3); EOSINOPHILS % (AUTO) 8 % (0-10); HEMATOCRIT 34 % (35-52); HEMOGLOBIN 10.3 G/DL (11.5-16.0); LYMPHOCYTES # (AUTO) 1.2 X 10^3 (1.0-4.0); LYMPHOCYTES % (AUTO) 21 % (12-44); MEAN CORPUSCULAR HEMOGLOBIN 22 PG (25-34); MEAN CORPUSCULAR HGB CONC 30 G/DL (32-36); MEAN CORPUSCULAR VOLUME 74 FL (80-99); MEAN PLATELET VOLUME 8.3 FL (7.4-10.4); MONOCYTES # (AUTO) 0.4 X 10^3 (0.0-1.0); MONOCYTES % (AUTO) 7 % (0-12); NEUTROPHILS # (AUTO) 3.6 X 10^3 (1.8-7.8); NEUTROPHILS % (AUTO) 64 % (42-75); PLATELET COUNT 510 10^3/uL (130-400); RED CELL DISTRIBUTION WIDTH 19.5 % (10.0-14.5); WHITE BLOOD COUNT 5.6 10^3/uL (4.3-11.0)
[2019-02-25 19:00] LABS: BILIRUBIN,URINE NEGATIVE (NEGATIVE); CLARITY,URINE CLEAR; COLOR,URINE YELLOW; GLUCOSE, URINE (UA) NEGATIVE (NEGATIVE); KETONES,URINE NEGATIVE (NEGATIVE); LEUKOCYTE ESTERASE ,URINE NEGATIVE (NEGATIVE); NITRITE,URINE NEGATIVE (NEGATIVE); PH,URINE 8 (5-9); PROTEIN,URINE NEGATIVE (NEGATIVE); UROBILINOGEN,URINE NORMAL (NORMAL)
[2019-02-25] MEDS ORDERED: IOHEXOL 350 MG/ML 100 ML (OMNIPAQUE 350) VIAL IV ONE (19:00)
[2019-02-25] MEDS ORDERED: NS 100 ML (IVPB) BAG IV ONE (19:00)
[2019-02-25] MEDS ORDERED: HOLD METFORMIN - RECEIVED CONTRAST 20 ML VIAL IV SCH (19:00)
[2019-02-25 19:09] LABS: BACTERIA,URINE NEGATIVE /HPF
[2019-02-25 19:17] LABS: ALANINE AMINOTRANSFERASE 7 U/L (0-55); ALKALINE PHOSPHATASE 74 U/L (40-136); BILIRUBIN,TOTAL 0.3 MG/DL (0.1-1.0); BUN/CREATININE RATIO 18; CALCIUM 8.9 MG/DL (8.5-10.1); CARBON DIOXIDE 23 MMOL/L (21-32); CHLORIDE 107 MMOL/L (98-107); GFR ESTIMATED > 60; GLUCOSE 93 MG/DL (70-105); POTASSIUM 4.5 MMOL/L (3.6-5.0); SODIUM 140 MMOL/L (135-145); TOTAL PROTEIN 7.1 GM/DL (6.4-8.2)
[2019-02-25 19:18] LABS: AMPHETAMINE SCREEN, URINE NEGATIVE (NEGATIVE); BARBITURATE SCREEN URINE NEGATIVE (NEGATIVE); BENZODIAZEPINES SCREEN URINE NEGATIVE (NEGATIVE); CANNABINOID SCREEN, URINE NEGATIVE (NEGATIVE); COCAINE SCREEN URINE NEGATIVE (NEGATIVE); METHADONE STAT NEGATIVE (NEGATIVE); METHAMPHETAMINE SCREEN URINE S NEGATIVE (NEGATIVE); OPIATE SCREEN URINE NEGATIVE (NEGATIVE); OXYCODONE STAT NEGATIVE (NEGATIVE); PROPOXYPHENE STAT NEGATIVE (NEGATIVE); TRICYCLIC ANTIDEPRESSANTS SCRE NEGATIVE (NEGATIVE)
[2019-02-25] MEDS ORDERED: diphenhydrAMINE 25 MG TAB (BENADRYL) PO ONE (20:30)
--- NOTE | 2019-02-25 20:54 | Diagnostic Imaging Report ---
PROCEDURE: CT abdomen and pelvis with contrast. TECHNIQUE: Multiple contiguous axial images were obtained through the abdomen and pelvis after administration of intravenous contrast. Auto Exposure Controls were utilized during the CT exam to meet ALARA standards for radiation dose reduction. INDICATION: Abdominal pain and bloating. History of gastric bypass and hysterectomy. Comparison made with the previous study from 07/20/2017. FINDINGS: The lung bases appear clear without infiltrate or evidence of an effusion. The liver demonstrates no focal abnormality. Portal veins are patent. The gallbladder is not evident. This is likely reflective of cholecystectomy. There is no biliary dilatation. The spleen, pancreas, adrenals and kidneys appear unremarkable. There are prior operative changes of gastric bypass. Orally ingested contrast is within distal loops of small bowel and has extended to the right colon. There are no findings to suggest bowel obstruction. There is no evidence of abnormal bowel thickening. There is, however, large degree of stool within the colon which suggests underlying constipation. The appendix is normal. There are surgical changes of hysterectomy. The urinary bladder is unremarkable. There are no findings of free air, free fluid or abscess. No pathologically enlarged lymph nodes are evident. The aorta is normal in caliber. No acute or suspicious osseous abnormality though there are advanced degenerative endplate changes present within the lumbar spine for age. IMPRESSION: 1. Previous operative changes of gastric bypass without findings to suggest bowel obstruction. 2. Large degree of stool throughout the colon suggesting constipation. 3. No focal inflammatory or obstructive process evident. 4. Previous hysterectomy. Apparent prior cholecystectomy. 5. Lumbar degenerative disc disease. Dictated by: Dictated on workstation # [id number]
[2019-02-25 21:15] VITALS: BP 126/94
== END 2019-02-25 21:15 | disposition home or self-care (01) ==
LOC: EDUNIT# 18:34 → ER 18:36
DX: K59.00 Constipation, unspecified (principal); J44.9 Chronic obstructive pulmonary disease, unspecified; G43.909 Migraine, unspecified, not intractable, without status migrainosus; F41.9 Anxiety disorder, unspecified; F43.10 Post-traumatic stress disorder, unspecified; F17.210 Nicotine dependence, cigarettes, uncomplicated; Z90.49 Acquired absence of other specified parts of digestive tract; Z91.040 Latex allergy status; Z88.6 Allergy status to analgesic agent; Z88.5 Allergy status to narcotic agent; Z98.84 Bariatric surgery status; Z90.710 Acquired absence of both cervix and uterus; Z98.51 Tubal ligation status; Z82.49 Family history of ischemic heart disease and other diseases of the circulatory system
CPT/HCPCS: 36415; 74177; 80053; 80306; 81000; 84703; 85025

== ENCOUNTER 2019-05-02 13:25 | Emergency (ER) | payer MEDICAID ==
[~2019-05-02] VITALS: Ht 160 cm; Wt 70.4 kg
[2019-05-02] MEDS ORDERED: morphine INJ 10 MG/ML 1ML (SYR OR VIAL) IVP STA (14:02)
--- NOTE | 2019-05-02 14:10 | ED Abdominal Pain ---
General Chief Complaint: Abdominal/GI Problems Stated Complaint: ABD PAIN; BLOODY STOOL Nursing Triage Note: PT REPROTS SHE WAS TAKEN TO [facility] BY [facility] ON WEDNESDAY FOR ABDOMINAL PAIN. AFTER MULTIPLE TESTS THEY TOLD HER TO FOLLOW UP IN A MUCH LARGER HOSPITAL FOR HER CHRONIC ABDOMINAL PAIN. THE PT PRESENTED TO THIS ER FOR HER FOLLOW UP IN A LARGER HOSPITAL. SHE REPORTS SHE HAD A BM LAST BM WITH BRIGHT RED BLOOD MIXED IN THE STOOL. Sepsis Screen: No Definite Risk Source of Information: Patient Exam Limitations: No Limitations History of Present Illness Date Seen by Provider: May 02, 2019 Time Seen by Provider: 15:35 Initial Comments The patient is a pleasant 33-year-old female who presents for evaluation of abdominal pain. She states that she has a history of chronic abdominal pain and has had ulcers and colon polyps. She was seen in the emergency department 2 days ago for the same complaint. She states that blood tests were done and she was told to follow up in a "larger hospital" and was discharged home. She states she had some blood mixed in with her stools over the last few days as well. She denies being anticoagulated. She states this is similar pain to her chronic abdominal pain. She reports subjective fevers at home but did not take her temperature. She is alert and oriented 4, calm, and appears to be in no distress this time. She reports that she did not have any imaging 2 days ago in the other emergency department. She states that she would like imaging performed today. Timing/Duration: 2-3 Days Severity/Quality: Moderate Location: Generalized Abdomen Radiation: Back Activities at Onset: None Modifying Factors: Improves With Palpation (makes it worse) Associated Symptoms: Fever/Chills (subjective fever), Nausea/Vomiting (nausea) Allergies and Home Medications Allergies Coded Allergies: latex (Unverified Allergy, Mild, HIVES, 10/06/10) NSAIDS (Non-Steroidal Anti-Inflamma (Verified Allergy, Unknown, 04/26/15) hydromorphone (Verified Allergy, Unknown, 06/14/17) prochlorperazine (Verified Allergy, Unknown, 06/14/17) Home Medications Albuterol Sulfate 1 Puff Puff, 1 PUFF IH Q4H PRN for SHORTNESS OF BREATH, (Reported) 1 PUFF = 90 MCG Alprazolam 1 Mg Tablet, 1 MG PO TID PRN for ANXIETY, (Reported) Butalb/Acetaminophen/Caffeine 1 Each Capsule, 1 TAB PO Q6H PRN for MIGRAINE, (Reported) Calcium Citrate/Vitamin D3 1 Each Tablet, 1 TAB PO TID, (Reported) Cyclobenzaprine HCl 10 Mg Tablet, 10 MG PO Q8H PRN for MUSCLE SPASMS, (Reported) Duloxetine HCl 30 Mg Capsule.dr, 30 MG PO DAILY, (Reported) LAST FILLED 12/31/16 #30 Fluticasone/Salmeterol 1 Each Blst.w.dev, 1 PUFF IH BID, (Reported) Gabapentin 800 Mg Tablet, 800 MG PO TID, (Reported) Metronidazole 500 Mg Tablet, 500 MG PO TID Prescribed by: PUSHPA COVARRUBIAS on 07/20/17 1317 Mv,Ca,Min/Iron Fum/FA/Vit K 1 Each Tab.chew, 1 TAB PO DAILY, (Reported) Omeprazole Magnesium 20 Mg Tablet.dr, 20 MG PO DAILY, (Reported) Ondansetron 8 Mg Tab.rapdis, 8 MG PO Q4H PRN for NAUSEA/VOMITING-2ND LINE Prescribed by: JOSE R HAYDEN on 06/17/172010 Oxycodone HCl 10 Mg Tab.er.12h, 10 MG PO BID, (Reported) Oxycodone HCl/Acetaminophen 1 Each Tablet, 1 EACH PO Q6H PRN for PAIN-MODERATE Prescribed by: JOSE R HAYDEN on 06/02/18 2347 Polyethylene Glycol 3350 119 Gm Powder, 17 GM PO DAILY PRN for CONSTIPATION-2ND LINE, (Reported) Polyethylene Glycol 3350 17 Gm Powd.pack, 17 GM PO QID PRN for CONSTIPATION-1ST LINE Prescribed by: JOSE R HAYDEN on 06/17/172010 Promethazine HCl 25 Mg Tablet, 25 MG PO Q8H PRN for NAUSEA/VOMITING Prescribed by: PUSHPA COVARRUBIAS on 06/14/17 1612 Promethazine HCl 25 Mg Tablet, 25 MG PO Q6H PRN for NAUSEA/VOMITING Prescribed by: JOSE R HAYDEN on 06/17/17 2011 Sulfamethoxazole/Trimethoprim 1 Each Tablet, 1 EACH PO BID Prescribed by: PUSHPA COVARRUBIAS on 07/20/17 1317 Tramadol HCl 50 Mg Tablet, 50 MG PO Q6H PRN for PAIN-MODERATE TO SEVERE Prescribed by: JOSE R HAYDEN on 12/28/17 2011 Patient Home Medication List Home Medication List Reviewed: Yes Review of Systems Review of Systems Constitutional: no symptoms reported EENTM: No Symptoms Reported Respiratory: No Symptoms Reported Gastrointestinal: Abdominal Pain, Blood Streaked Stools, Nausea Genitourinary: No Symptoms Reported Musculoskeletal: no symptoms reported Skin: no symptoms reported Psychiatric/Neurological: No Symptoms Reported Endocrine: No Symptoms Reported Hematologic/Lymphatic: No Symptoms Reported All Other Systems Reviewed Negative Unless Noted: Yes Past Svnqcbg-Zqcrxv-Vfrhgs Hx Past Med/Social Hx: Reviewed Nursing Past Med/Soc Hx Patient Social History Alcohol Use: Denies Use Recreational Drug Use: No Type Used: Cigarettes 2nd Hand Smoke Exposure: Yes Recent Foreign Travel: No Contact w/Someone Who Travel: No Recent Infectious Disease Expo: No Recent Hopitalizations: No Physical Abuse: No Sexual Abuse: No Mistreated: No Fear: No Immunizations Up To Date Tetanus Booster (TDap): Less than 5yrs Date of Pneumonia Vaccine: Apr 21, 2016 Date of Influenza Vaccine: Feb 19, 2014 Seasonal Allergies Seasonal Allergies: No Past Medical History Surgeries: Yes (GASTRIC BYPASS, D&C, x 3) Abdominal, Section, Gallbladder, Hysterectomy, Tubal Ligation Respiratory: Yes Asthma, COPD Currently Using BIPAP: No Cardiac: No Neurological: Yes Headaches /Migraines Reproductive Disorders: No Female Reproductive Disorders: Menstrual 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 0oz. 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 nml as tested, no motor/sensory deficits, alert, normal mood/affect, oriented x 3 Skin: normal color, warm/dry Progress/Results/Core Measures Results/Orders Lab Results Laboratory Tests Test 05/02/19 13:40 05/02/19 13:56 Range/Units Urine Color YELLOW Urine Clarity CLEAR Urine pH 6.5 5-9 Urine Specific [place] <=1.005 1.016-1.022 Urine Protein NEGATIVE NEGATIVE Urine Glucose (UA) NEGATIVE NEGATIVE Urine Ketones NEGATIVE NEGATIVE Urine Nitrite NEGATIVE NEGATIVE Urine Bilirubin NEGATIVE NEGATIVE Urine Urobilinogen 0.2 < = 1.0 MG/DL Urine Leukocyte Esterase NEGATIVE NEGATIVE Urine RBC (Auto) NEGATIVE NEGATIVE Urine RBC NONE /HPF Urine WBC RARE /HPF Urine Squamous Epithelial Cells 5-10 /HPF Urine Crystals NONE /LPF Urine Bacteria NEGATIVE /HPF Urine Casts NONE /LPF Urine Mucus NEGATIVE /LPF Urine Culture Indicated NO White Blood Count 6.2 4.3-11.0 10^3/uL Red Blood Count 4.43 4.35-5.85 10^6/uL Hemoglobin 10.2 L 11.5-16.0 G/DL Hematocrit 34 L 35-52 % Mean Corpuscular Volume 78 L 80-99 FL Mean Corpuscular Hemoglobin 23 L 25-34 PG Mean Corpuscular Hemoglobin Concent 30 L 32-36 G/DL Red Cell Distribution Width 19.6 H 10.0-14.5 % Platelet Count 436 H 130-400 10^3/uL Mean Platelet Volume 9.1 7.4-10.4 FL Neutrophils (%) (Auto) 59 42-75 % Lymphocytes (%) (Auto) 24 12-44 % Monocytes (%) (Auto) 8 0-12 % Eosinophils (%) (Auto) 7 0-10 % Basophils (%) (Auto) 2 0-10 % Neutrophils # (Auto) 3.7 1.8-7.8 X 10^3 Lymphocytes # (Auto) 1.5 1.0-4.0 X 10^3 Monocytes # (Auto) 0.5 0.0-1.0 X 10^3 Eosinophils # (Auto) 0.4 H 0.0-0.3 10^3/uL Basophils # (Auto) 0.1 0.0-0.1 10^3/uL Sodium Level 141 135-145 MMOL/L Potassium Level 4.1 3.6-5.0 MMOL/L Chloride Level 104 98-107 MMOL/L Carbon Dioxide Level 28 21-32 MMOL/L Anion Gap 9 5-14 MMOL/L Blood Urea Nitrogen 11 7-18 MG/DL Creatinine 0.66 0.60-1.30 MG/DL Estimat Glomerular Filtration Rate > 60 BUN/Creatinine Ratio 17 Glucose Level 88 70-105 MG/DL Calcium Level 9.1 8.5-10.1 MG/DL Corrected Calcium 8.9 8.5-10.1 MG/DL Total Bilirubin 0.3 0.1-1.0 MG/DL Aspartate Amino Transf (AST/SGOT) 18 5-34 U/L Alanine Aminotransferase (ALT/SGPT) 13 0-55 U/L Alkaline Phosphatase 80 40-136 U/L Total Protein 7.0 6.4-8.2 GM/DL Albumin 4.2 3.2-4.5 GM/DL Amylase Level 56 25-125 U/L Lipase 67 8-78 U/L My Orders Orders - YONG LUONG DO Amylase (05/02/19 13:47) Cbc With Automated Diff (05/02/19 13:47) Comprehensive Metabolic Panel (05/02/19 13:47) Lipase (05/02/19 13:47) Ua Culture If Indicated (05/02/19 13:47) Ct Abdomen/Pelvis W (05/02/19 13:59) Ns Iv 1000 Ml (Sodium Chloride 0.9%) (05/02/19 14:15) Morphine Injection (Morphine Injection (05/02/19 14:02) Ondansetron Injection (Zofran Injectio (05/02/19 14:15) Iohexol Injection (Omnipaque 350 Mg/Ml 1 (05/02/19 14:15) Received Contrast (Hold Metformin- Contr (05/02/19 14:15) Sodium Chloride Flush (Catheter Flush Sy (05/02/19 14:15) Ns (Ivpb) (Sodium Chloride 0.9% Ivpb Bag (05/02/19 14:15) Medications Given in ED Current Medications Medications Dose Ordered Sig/Hernan Route Start Time Stop Time Status Last Admin Dose Admin Iohexol 100 ml ONCE ONCE IV 05/02/19 14:15 05/02/19 14:16 DC 05/02/19 14:29 100 ML Ondansetron HCl 4 mg ONCE ONCE IVP 05/02/19 14:15 05/02/19 14:16 DC 05/02/19 14:09 4 MG Sodium Chloride 10 ml NEEDED PRN IV 05/02/19 14:15 05/02/19 14:30 10 ML Sodium Chloride 100 ml ONCE ONCE IV 05/02/19 14:15 05/02/19 14:16 DC 05/02/19 14:29 80 ML Vital Signs/I&O 05/02/19 13:47 Temp 36.5 Pulse 89 Resp 18 B/P (MAP) 124/85 (98) O2 Delivery Room Air Blood Pressure Mean: 98 POS Progress Progress Note : Progress Note Patient updated on lab and imaging results. Workup today fails to reveal any emergent pathology. The patient states she is feeling better and is asking to go home. Strongly advised the patient to follow up with her GI specialist for an EGD and colonoscopy to further evaluate her chronic symptoms. Advised the patient to return to the emergency Department immediately for new or worsening symptoms. She expresses verbal understanding and agreement with plan and is stable for discharge at this time. Diagnostic Imaging Comments [facility]. POS [place], [place] POS NAME: ERIBERTO ALONZO [facility] REC#: [id number] PT STATUS: REG ER : 1985 PHYSICIAN: YONG LUONG DO ADMIT DATE: 05/02/19/ER FS Draft POSDate of Exam:05/02/19 CT ABDOMEN/PELVIS W PROCEDURE: CT abdomen and pelvis with contrast. TECHNIQUE: Multiple contiguous axial images were obtained through the abdomen and pelvis after administration of intravenous contrast. Auto Exposure Controls were utilized during the CT exam to meet ALARA standards for radiation dose reduction. INDICATION: Abdominal pain. COMPARISON: 02/25/2019. FINDINGS: Lung bases are clear. Cholecystectomy. Hysterectomy. Stable postoperative findings of a gastric bypass. The liver, pancreas, spleen, adrenals, kidneys, collecting systems and bladder are negative. Normal appendix. No free intraperitoneal air or fluid. No lymphadenopathy. No evidence of bowel obstruction or inflammation. Mtth-ca-sfnurozd spondylotic changes in the lumbar spine. No acute osseous findings. IMPRESSION: No acute CT findings in the abdomen or pelvis. Stable chronic and postoperative changes as above. Dictated on workstation # [id number] Dict: 05/02/19 1443 Trans: 05/02/19 1450 [facility] [id number] Interpreted by: ROSENDO LOBO MD Electronically signed by: Departure Impression Primary Impression: Chronic abdominal pain Disposition: HOME, SELF-CARE Condition: Stable Departure-Patient Inst. Decision time for Depature: 15:41 Referrals: NO,LOCAL PHYSICIAN (PCP) Primary Care Physician [facility] Patient Instructions: Acute Abdomen (Belly Pain), Adult (DC), Peptic Ulcers (DC) Add. Discharge Instructions: Take the prescribed medicine instructed. Return to the emergency Department immediately for new or worsening symptoms. Follow-up with your GI specialist in the next 1-2 days. Scripts Ondansetron (Ondansetron Odt) 4 Mg Tab.rapdis 4 MG PO Q6H PRN for NAUSEA/VOMITING-1ST LINE for 5 Days, #20 TAB Prov: YONG LUONG DO 05/02/19 Hydrocodone/Acetaminophen (Hydrocodon-Acetaminophn 10-325) 1 Each Tablet 1 EACH PO Q6H PRN for PAIN-MODERATE MDD 5 for 5 Days, #15 TAB 0 Refills Prov: YONG LUONG DO 05/02/19 YONG LUONG DO May 02, 2019 14:10 POS
[2019-05-02] MEDS ORDERED: ONDANSETRON 4 MG/2 ML (SDV) Z0FRAN IVP ONE (14:15)
[2019-05-02] MEDS ORDERED: IOHEXOL 350 MG/ML 100 ML (OMNIPAQUE 350) VIAL IV ONE (14:15)
[2019-05-02] MEDS ORDERED: NS 100 ML (IVPB) BAG IV ONE (14:15)
[2019-05-02] MEDS ORDERED: HOLD METFORMIN - RECEIVED CONTRAST 20 ML VIAL IV SCH (14:15)
[2019-05-02] MEDS ORDERED: NS IV 1000 ML 1,000 ML IV SCH (14:15)
[2019-05-02] MEDS ORDERED: CATHETER FLUSH 10 ML SYR IV PRN (14:15)
[2019-05-02 14:22] LABS: BASOPHILS # (AUTO) 0.1 10^3/uL (0.0-0.1); BASOPHILS % (AUTO) 2 % (0-10); EOSINOPHILS # (AUTO) 0.4 10^3/uL (0.0-0.3); EOSINOPHILS % (AUTO) 7 % (0-10); HEMATOCRIT 34 % (35-52); HEMOGLOBIN 10.2 G/DL (11.5-16.0); LYMPHOCYTES # (AUTO) 1.5 X 10^3 (1.0-4.0); LYMPHOCYTES % (AUTO) 24 % (12-44); MEAN CORPUSCULAR HEMOGLOBIN 23 PG (25-34); MEAN CORPUSCULAR HGB CONC 30 G/DL (32-36); MEAN CORPUSCULAR VOLUME 78 FL (80-99); MEAN PLATELET VOLUME 9.1 FL (7.4-10.4); MONOCYTES # (AUTO) 0.5 X 10^3 (0.0-1.0); MONOCYTES % (AUTO) 8 % (0-12); NEUTROPHILS # (AUTO) 3.7 X 10^3 (1.8-7.8); NEUTROPHILS % (AUTO) 59 % (42-75); PLATELET COUNT 436 10^3/uL (130-400); RED CELL DISTRIBUTION WIDTH 19.6 % (10.0-14.5); WHITE BLOOD COUNT 6.2 10^3/uL (4.3-11.0)
[2019-05-02 14:25] LABS: BILIRUBIN,URINE NEGATIVE (NEGATIVE); CLARITY,URINE CLEAR; COLOR,URINE YELLOW; GLUCOSE, URINE (UA) NEGATIVE (NEGATIVE); KETONES,URINE NEGATIVE (NEGATIVE); LEUKOCYTE ESTERASE ,URINE NEGATIVE (NEGATIVE); NITRITE,URINE NEGATIVE (NEGATIVE); PH,URINE 6.5 (5-9); PROTEIN,URINE NEGATIVE (NEGATIVE)
[2019-05-02 14:28] LABS: BACTERIA,URINE NEGATIVE /HPF; WBC,URINE RARE /HPF
--- NOTE | 2019-05-02 14:50 | Diagnostic Imaging Report ---
PROCEDURE: CT abdomen and pelvis with contrast. TECHNIQUE: Multiple contiguous axial images were obtained through the abdomen and pelvis after administration of intravenous contrast. Auto Exposure Controls were utilized during the CT exam to meet ALARA standards for radiation dose reduction. INDICATION: Abdominal pain. COMPARISON: 02/25/2019. FINDINGS: Lung bases are clear. Cholecystectomy. Hysterectomy. Stable postoperative findings of a gastric bypass. The liver, pancreas, spleen, adrenals, kidneys, collecting systems and bladder are negative. Normal appendix. No free intraperitoneal air or fluid. No lymphadenopathy. No evidence of bowel obstruction or inflammation. Vzzt-cj-bmytjqit spondylotic changes in the lumbar spine. No acute osseous findings. IMPRESSION: No acute CT findings in the abdomen or pelvis. Stable chronic and postoperative changes as above. Dictated by: Dictated on workstation # [id number]
[2019-05-02 15:09] LABS: BUN/CREATININE RATIO 17; CARBON DIOXIDE 28 MMOL/L (21-32); CHLORIDE 104 MMOL/L (98-107); CREATININE SERUM 0.66 MG/DL (0.60-1.30); GFR ESTIMATED > 60; GLUCOSE 88 MG/DL (70-105); POTASSIUM 4.1 MMOL/L (3.6-5.0); SODIUM 141 MMOL/L (135-145)
[2019-05-02 15:10] LABS: ALANINE AMINOTRANSFERASE 13 U/L (0-55); ALBUMIN 4.2 GM/DL (3.2-4.5); ALKALINE PHOSPHATASE 80 U/L (40-136); AMYLASE 56 U/L (25-125); BILIRUBIN,TOTAL 0.3 MG/DL (0.1-1.0); CALCIUM 9.1 MG/DL (8.5-10.1); LIPASE 67 U/L (8-78)
[2019-05-02 15:41] VITALS: BP 146/94
[2019-05-02] MEDS ORDERED: ONDA4TAB11 PO (15:41)
[2019-05-02] MEDS ORDERED: HYDR-3820 PO (15:41)
== END 2019-05-02 15:45 | disposition home or self-care (01) ==
LOC: EDUNIT# 13:25 → ER FS 13:27
DX: G89.29 Other chronic pain (principal); R10.84 Generalized abdominal pain; J44.9 Chronic obstructive pulmonary disease, unspecified; G43.909 Migraine, unspecified, not intractable, without status migrainosus; K58.9 Irritable bowel syndrome, unspecified; F43.10 Post-traumatic stress disorder, unspecified; F41.9 Anxiety disorder, unspecified; Z98.51 Tubal ligation status; Z91.040 Latex allergy status; Z88.6 Allergy status to analgesic agent; Z88.8 Allergy status to other drugs, medicaments and biological substances; Z79.51 Long term (current) use of inhaled steroids; Z77.22 Contact with and (suspected) exposure to environmental tobacco smoke (acute) (chronic); Z90.710 Acquired absence of both cervix and uterus; Z82.49 Family history of ischemic heart disease and other diseases of the circulatory system
CPT/HCPCS: 36415; 74177; 80053; 81000; 82150; 83690; 85025

== ENCOUNTER 2019-07-03 22:23 | Emergency (ER) | payer MEDICAID ==
[~2019-07-03] VITALS: Ht 160 cm; Wt 70.4 kg
[~2019-07-03 22:23] MED LIST changes: -CLON0.5T13; +CLON0.5T4; +HYDR-3820 PO; +ONDA4TAB11 PO
[2019-07-03] MEDS ORDERED: NS IV 1000 ML 1,000 ML IV ONE (22:33)
[2019-07-03] MEDS ORDERED: FAMOTIDINE 20MG/2ML IV (PEPCID) IVP ONE (22:45)
[2019-07-03] MEDS ORDERED: ONDANSETRON 4 MG/2 ML (SDV) Z0FRAN IVP ONE (22:45)
[2019-07-03 22:48] LABS: BILIRUBIN,URINE NEGATIVE (NEGATIVE); CLARITY,URINE CLEAR; COLOR,URINE YELLOW; GLUCOSE, URINE (UA) NEGATIVE (NEGATIVE); KETONES,URINE NEGATIVE (NEGATIVE); LEUKOCYTE ESTERASE ,URINE NEGATIVE (NEGATIVE); NITRITE,URINE NEGATIVE (NEGATIVE); PH,URINE 6.5 (5-9); PROTEIN,URINE NEGATIVE (NEGATIVE)
[2019-07-03 22:50] LABS: BASOPHILS # (AUTO) 0.1 10^3/uL (0.0-0.1); BASOPHILS % (AUTO) 1 % (0-10); EOSINOPHILS # (AUTO) 0.6 10^3/uL (0.0-0.3); EOSINOPHILS % (AUTO) 10 % (0-10); HEMATOCRIT 32 % (35-52); HEMOGLOBIN 9.7 G/DL (11.5-16.0); LYMPHOCYTES # (AUTO) 1.4 X 10^3 (1.0-4.0); LYMPHOCYTES % (AUTO) 24 % (12-44); MEAN CORPUSCULAR HEMOGLOBIN 23 PG (25-34); MEAN CORPUSCULAR HGB CONC 31 G/DL (32-36); MEAN CORPUSCULAR VOLUME 76 FL (80-99); MEAN PLATELET VOLUME 9.1 FL (7.4-10.4); MONOCYTES # (AUTO) 0.4 X 10^3 (0.0-1.0); MONOCYTES % (AUTO) 7 % (0-12); NEUTROPHILS # (AUTO) 3.4 X 10^3 (1.8-7.8); NEUTROPHILS % (AUTO) 58 % (42-75); PLATELET COUNT 319 10^3/uL (130-400); RED CELL DISTRIBUTION WIDTH 18.1 % (10.0-14.5); WHITE BLOOD COUNT 5.8 10^3/uL (4.3-11.0)
[2019-07-03 22:55] LABS: BACTERIA,URINE NEGATIVE /HPF
[2019-07-03] MEDS ORDERED: fentaNYL INJECTION 100 MCG/2 ML AMP IVP ONE (23:00)
[2019-07-03 23:01] LABS: AMPHETAMINE SCREEN, URINE NEGATIVE (NEGATIVE); BARBITURATE SCREEN URINE NEGATIVE (NEGATIVE); BENZODIAZEPINES SCREEN URINE NEGATIVE (NEGATIVE); CANNABINOID SCREEN, URINE NEGATIVE (NEGATIVE); COCAINE SCREEN URINE NEGATIVE (NEGATIVE); METHADONE STAT NEGATIVE (NEGATIVE); METHAMPHETAMINE SCREEN URINE S NEGATIVE (NEGATIVE); OPIATE SCREEN URINE NEGATIVE (NEGATIVE); OXYCODONE STAT NEGATIVE (NEGATIVE); PROPOXYPHENE STAT NEGATIVE (NEGATIVE); TRICYCLIC ANTIDEPRESSANTS SCRE NEGATIVE (NEGATIVE)
[2019-07-03 23:06] LABS: ALANINE AMINOTRANSFERASE < 6 U/L (0-55); ALBUMIN 3.8 GM/DL (3.2-4.5); ALKALINE PHOSPHATASE 62 U/L (40-136); BILIRUBIN,TOTAL 0.2 MG/DL (0.1-1.0); BUN/CREATININE RATIO 23; CALCIUM 8.9 MG/DL (8.5-10.1); CARBON DIOXIDE 20 MMOL/L (21-32); CHLORIDE 109 MMOL/L (98-107); CREATININE SERUM 0.69 MG/DL (0.60-1.30); GFR ESTIMATED > 60; GLUCOSE 100 MG/DL (70-105); LIPASE 29 U/L (8-78); MAGNESIUM 2.2 MG/DL (1.6-2.4); POTASSIUM 4.2 MMOL/L (3.6-5.0); SODIUM 140 MMOL/L (135-145); TOTAL PROTEIN 6.6 GM/DL (6.4-8.2)
[2019-07-03 23:09] LABS: ERYTHROCYTE SEDIMENTATION RATE 22 MM/HR (0-20)
[2019-07-03] MEDS ORDERED: ANTACID SUSP 30 ML UDC (MYLANTA) PO ONE (23:15)
[2019-07-03] MEDS ORDERED: LIDOCAINE 2% VISCOUS 15 ML UDC PO ONE (23:15)
[2019-07-03] MEDS ORDERED: PANTOPRAZOLE 40 MG (PROTONIX) VIAL IV ONE (23:30)
--- NOTE | 2019-07-04 00:30 | ED Abdominal Pain ---
General Chief Complaint: Abdominal/GI Problems Stated Complaint: ABD PAIN Nursing Triage Note: TO ED ROOM 7 VIA [facility]. PT STATES ABD PAIN X2 WEEKS AND BLOODY STOOLS, NAUSEA, AND FEVERS. HX OF GASTRIC SX 7 YEARS AGO. Sepsis Screen: Possible Sepsis Risk Source of Information: Patient, Old Records Exam Limitations: No Limitations History of Present Illness Date Seen by Provider: Jul 03, 2019 Time Seen by Provider: 22:02 Initial Comments This 33-year-old woman presents to the emergency room with exacerbation of chronic abdominal pain. She reports having significant abdominal pain for the last 2 weeks as well as bloody stools. She is afebrile at present but reports intermittent fevers at home. She reports her highest temperature in recent days was up to 101. She arrives via EMS from [facility]. They report unremarkable vital signs. No medications were administered. She reports her stools have the appearance of coffee grounds and seemed to be bloody. She is being followed by a surgeon in [facility] who did her gastric bypass surgery. She has endoscopy pending 18 July. She has been seen numerous times for abdominal pain and has had extensive workups in the past including CT scan. She has been seen at numerous facilities including the hospitals in [facility], and [place]. She states her significant other is a truck switcher and they tend to visit whenever emergency room is near his routes. Patient has a history of GERD. She reports recently being prescribed Protonix but she has not yet started it. Allergies and Home Medications Allergies Coded Allergies: latex (Unverified Allergy, Mild, HIVES, 10/06/10) NSAIDS (Non-Steroidal Anti-Inflamma (Verified Allergy, Unknown, 04/26/15) hydromorphone (Verified Allergy, Unknown, 06/14/17) prochlorperazine (Verified Allergy, Unknown, 06/14/17) Home Medications Albuterol Sulfate 1 Puff Puff, 1 PUFF IH Q4H PRN for SHORTNESS OF BREATH, (Reported) 1 PUFF = 90 MCG Alprazolam 1 Mg Tablet, 1 MG PO TID PRN for ANXIETY, (Reported) Butalb/Acetaminophen/Caffeine 1 Each Capsule, 1 TAB PO Q6H PRN for MIGRAINE, (Reported) Calcium Citrate/Vitamin D3 1 Each Tablet, 1 TAB PO TID, (Reported) Cyclobenzaprine HCl 10 Mg Tablet, 10 MG PO Q8H PRN for MUSCLE SPASMS, (Reported) Duloxetine HCl 30 Mg Capsule.dr, 30 MG PO DAILY, (Reported) LAST FILLED 12/31/16 #30 Fluticasone/Salmeterol 1 Each Blst.w.dev, 1 PUFF IH BID, (Reported) Gabapentin 800 Mg Tablet, 800 MG PO TID, (Reported) Hydrocodone/Acetaminophen 1 Each Tablet, 1 EACH PO Q6H PRN for PAIN-MODERATE Prescribed by: YONG LUONG on 05/02/19 1541 Metronidazole 500 Mg Tablet, 500 MG PO TID Prescribed by: PUSHPA COVARRUBIAS on 07/20/17 1317 Mv,Ca,Min/Iron Fum/FA/Vit K 1 Each Tab.chew, 1 TAB PO DAILY, (Reported) Omeprazole Magnesium 20 Mg Tablet.dr, 20 MG PO DAILY, (Reported) Ondansetron 8 Mg Tab.rapdis, 8 MG PO Q4H PRN for NAUSEA/VOMITING-2ND LINE Prescribed by: JOSE R HAYDEN on 06/17/172010 Ondansetron 4 Mg Tab.rapdis, 4 MG PO Q6H PRN for NAUSEA/VOMITING-1ST LINE Prescribed by: YONG LUONG on 05/02/19 1541 Oxycodone HCl 10 Mg Tab.er.12h, 10 MG PO BID, (Reported) Oxycodone HCl/Acetaminophen 1 Each Tablet, 1 EACH PO Q6H PRN for PAIN-MODERATE Prescribed by: JOSE R HAYDEN on 06/02/18 2347 Polyethylene Glycol 3350 119 Gm Powder, 17 GM PO DAILY PRN for CONSTIPATION-2ND LINE, (Reported) Polyethylene Glycol 3350 17 Gm Powd.pack, 17 GM PO QID PRN for CONSTIPATION-1ST LINE Prescribed by: JOSE R HAYDEN on 06/17/17 2011 Promethazine HCl 25 Mg Tablet, 25 MG PO Q8H PRN for NAUSEA/VOMITING Prescribed by: PUSHPA COVARRUBIAS on 06/14/17 1612 Promethazine HCl 25 Mg Tablet, 25 MG PO Q6H PRN for NAUSEA/VOMITING Prescribed by: JOSE R HAYDEN on 06/17/172010 Sulfamethoxazole/Trimethoprim 1 Each Tablet, 1 EACH PO BID Prescribed by: PUSHPA COVARRUBIAS on 07/20/17 1317 Tramadol HCl 50 Mg Tablet, 50 MG PO Q6H PRN for PAIN-MODERATE TO SEVERE Prescribed by: JOSE R HAYDEN on 06/17/172010 Patient Home Medication List Home Medication List Reviewed: Yes Review of Systems Review of Systems Constitutional: see HPI EENTM: No Symptoms Reported Respiratory: No Symptoms Reported Cardiovascular: No Symptoms Reported Gastrointestinal: See HPI Genitourinary: No Symptoms Reported Musculoskeletal: no symptoms reported Skin: no symptoms reported Psychiatric/Neurological: No Symptoms Reported Endocrine: No Symptoms Reported Hematologic/Lymphatic: No Symptoms Reported Past Zvldlid-[id number]-[id number] Hx Past Med/Social Hx: Reviewed and Corrections made Patient Social History Alcohol Use: Denies Use Recreational Drug Use: No Type Used: Cigarettes 2nd Hand Smoke Exposure: Yes Recent Foreign Travel: No Contact w/Someone Who Travel: No Recent Infectious Disease Expo: No Recent Hopitalizations: No Physical Abuse: No Sexual Abuse: No Mistreated: No Fear: No Immunizations Up To Date Tetanus Booster (TDap): Less than 5yrs Date of Pneumonia Vaccine: Apr 21, 2016 Date of Influenza Vaccine: Feb 19, 2014 Seasonal Allergies Seasonal Allergies: No Past Medical History Surgeries: Yes (GASTRIC BYPASS, D&C, x 3) Abdominal, Section, Gallbladder, Hysterectomy, Tubal Ligation Respiratory: Yes Asthma, COPD Currently Using BIPAP: No Cardiac: No Neurological: Yes Headaches /Migraines, Neuropathy Reproductive Disorders: No Female Reproductive Disorders: 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 Genitourinary: No Gastrointestinal: Yes (GASTRIC BYPASS) Gastroesophageal Reflux, Obstructive Bowel, Polyps, Irritable Bowel Musculoskeletal: Yes Degenerate Disk Disease, Scoliosis, Chronic Back Pain Endocrine: No HEENT: No Cancer: No Psychosocial: Yes Anxiety, PTSD Integumentary: No Blood Disorders: No Adverse Reaction/Blood Tranf: No Family Medical History CAD Under 55 Years Old, Other Conditions/Hx Physical Exam Vital Signs Vital Signs - First Documented 07/03/19 07/04/19 22:23 00:48 Temp 36.6 Pulse 100 Resp 18 B/P (MAP) 114/79 (91) Pulse Ox 95 O2 Delivery Room Air Capillary Refill : Less Than 3 Seconds Height/Weight/BMI Height: 5'3.00" Weight: 168lbs. 0oz. 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, no motor/sensory deficits, alert, normal mood/affect, oriented x 3 Skin: normal color, warm/dry Progress/Results/Core Measures Results/Orders Lab Results Laboratory Tests Test 07/03/19 22:35 07/03/19 22:40 Range/Units White Blood Count 5.8 4.3-11.0 10^3/uL Red Blood Count 4.18 L 4.35-5.85 10^6/uL Hemoglobin 9.7 L 11.5-16.0 G/DL Hematocrit 32 L 35-52 % Mean Corpuscular Volume 76 L 80-99 FL Mean Corpuscular Hemoglobin 23 L 25-34 PG Mean Corpuscular Hemoglobin Concent 31 L 32-36 G/DL Red Cell Distribution Width 18.1 H 10.0-14.5 % Platelet Count 319 130-400 10^3/uL Mean Platelet Volume 9.1 7.4-10.4 FL Neutrophils (%) (Auto) 58 42-75 % Lymphocytes (%) (Auto) 24 12-44 % Monocytes (%) (Auto) 7 0-12 % Eosinophils (%) (Auto) 10 0-10 % Basophils (%) (Auto) 1 0-10 % Neutrophils # (Auto) 3.4 1.8-7.8 X 10^3 Lymphocytes # (Auto) 1.4 1.0-4.0 X 10^3 Monocytes # (Auto) 0.4 0.0-1.0 X 10^3 Eosinophils # (Auto) 0.6 H 0.0-0.3 10^3/uL Basophils # (Auto) 0.1 0.0-0.1 10^3/uL Erythrocyte Sedimentation Rate 22 H 0-20 MM/HR Sodium Level 140 135-145 MMOL/L Potassium Level 4.2 3.6-5.0 MMOL/L Chloride Level 109 H 98-107 MMOL/L Carbon Dioxide Level 20 L 21-32 MMOL/L Anion Gap 11 5-14 MMOL/L Blood Urea Nitrogen 16 7-18 MG/DL Creatinine 0.69 0.60-1.30 MG/DL Estimat Glomerular Filtration Rate > 60 BUN/Creatinine Ratio 23 Glucose Level 100 70-105 MG/DL Calcium Level 8.9 8.5-10.1 MG/DL Corrected Calcium 9.1 8.5-10.1 MG/DL Magnesium Level 2.2 1.6-2.4 MG/DL Total Bilirubin 0.2 0.1-1.0 MG/DL Aspartate Amino Transf (AST/SGOT) 17 5-34 U/L Alanine Aminotransferase (ALT/SGPT) < 6 0-55 U/L Alkaline Phosphatase 62 40-136 U/L C-Reactive Protein High Sensitivity 0.02 0.00-0.50 MG/DL Total Protein 6.6 6.4-8.2 GM/DL Albumin 3.8 3.2-4.5 GM/DL Lipase 29 8-78 U/L Serum Alcohol < 10 <10 MG/DL Urine Color YELLOW Urine Clarity CLEAR Urine pH 6.5 5-9 Urine Specific [place] 1.020 1.016-1.022 Urine Protein NEGATIVE NEGATIVE Urine Glucose (UA) NEGATIVE NEGATIVE Urine Ketones NEGATIVE NEGATIVE Urine Nitrite NEGATIVE NEGATIVE Urine Bilirubin NEGATIVE NEGATIVE Urine Urobilinogen 0.2 < = 1.0 MG/DL Urine Leukocyte Esterase NEGATIVE NEGATIVE Urine RBC (Auto) NEGATIVE NEGATIVE Urine RBC NONE /HPF Urine WBC NONE /HPF Urine Squamous Epithelial Cells 2-5 /HPF Urine Crystals NONE /LPF Urine Bacteria NEGATIVE /HPF Urine Casts NONE /LPF Urine Mucus NEGATIVE /LPF Urine Culture Indicated NO Urine Opiates Screen NEGATIVE NEGATIVE Urine Oxycodone Screen NEGATIVE NEGATIVE Urine Methadone Screen NEGATIVE NEGATIVE Urine Propoxyphene Screen NEGATIVE NEGATIVE Urine Barbiturates Screen NEGATIVE NEGATIVE Ur Tricyclic Antidepressants Screen NEGATIVE NEGATIVE Urine Phencyclidine Screen NEGATIVE NEGATIVE Urine Amphetamines Screen NEGATIVE NEGATIVE Urine Methamphetamines Screen NEGATIVE NEGATIVE Urine Benzodiazepines Screen NEGATIVE NEGATIVE Urine Cocaine Screen NEGATIVE NEGATIVE Urine Cannabinoids Screen NEGATIVE NEGATIVE My Orders Orders - SELAM GIVENS MD Alcohol (07/03/19 22:33) Cbc With Automated Diff (07/03/19 22:33) Comprehensive Metabolic Panel (07/03/19 22:33) Hs C Reactive Protein (07/03/19 22:33) Drug Screen Stat (Urine) (07/03/19 22:33) Lipase (1/13/20 22:33) Ua Culture If Indicated (07/03/19 22:33) Ed Iv/Invasive Line Start (07/03/19 22:33) Ns Iv 1000 Ml (Sodium Chloride 0.9%) (07/03/19 22:33) Erythrocyte Sedimentation Rate (07/03/19 22:33) Famotidine Injection (Pepcid Injection) (07/03/19 22:45) Ondansetron Injection (Zofran Injectio (07/03/19 22:45) Magnesium (07/03/19 22:35) Fentanyl Injection (Sublimaze Injection (07/03/19 23:00) Lidocaine 2% Viscous 15 Ml (Xylocaine Vi (07/03/19 23:15) Antacid Suspension (Mylanta Suspension (07/03/19 23:15) Pantoprazole Injection (Protonix Injecti (07/03/19 23:30) Abdomen, Flat & Upright/Decub (07/03/19 23:18) Medications Given in ED Current Medications Medications Dose Ordered Sig/Hernan Route Start Time Stop Time Status Last Admin Dose Admin Al Hydrox/Mg Hydrox/Simethicone 30 ml ONCE ONCE PO 07/03/19 23:15 07/03/19 23:16 DC 07/03/19 23:26 30 ML Famotidine 20 mg ONCE ONCE IVP 07/03/19 22:45 07/03/19 22:46 DC 07/03/19 22:43 20 MG Fentanyl Citrate 50 mcg ONCE ONCE IVP 07/03/19 23:00 07/03/19 23:01 DC 07/03/19 23:06 50 MCG Lidocaine HCl 15 ml ONCE ONCE PO 07/03/19 23:15 07/03/19 23:16 DC 07/03/19 23:26 15 ML Ondansetron HCl 8 mg ONCE ONCE IVP 07/03/19 22:45 07/03/19 22:46 DC 07/03/19 22:43 8 MG Pantoprazole 40 mg ONCE ONCE IV 07/03/19 23:30 07/03/19 23:31 DC 07/03/19 23:28 40 MG Sodium Chloride 1,000 ml @ 0 mls/hr Q0M ONCE IV 07/03/19 22:33 07/03/19 22:36 DC 07/03/19 22:43 999 MLS/HR Vital Signs/I&O 07/03/19 07/04/19 22:23 00:48 Temp 36.6 36.6 Pulse 100 88 Resp 18 16 B/P (MAP) 114/79 (91) 100/79 (91) Pulse Ox 95 O2 Delivery Room Air 07/04/19 00:00 Intake Total 1000 ml Balance 1000 ml Blood Pressure Mean: 91 Fecal Occult: Negative Progress Progress Note : Progress Note Patient was treated with IV fluids, Pepcid, and fentanyl. Workup was relatively unremarkable except for chronic microcytic anemia. Patient was further treated with GI cocktail and IV Protonix. This did improve her pain. After review of labs and x-rays, patient was advised to seek follow-up with her primary surgeon. Diagnostic Imaging Diagonstic Imaging: Xray Plain Films/CT/US/NM/MRI: abdomen, pelvis Comments Abdominal x-rays viewed by me. There is a nonspecific bowel gas pattern with some gaseous distention in the left upper quadrant. There are no findings to suggest bowel obstruction by my interpretation. Radiologist report is pending. Departure Impression Primary Impression: Chronic abdominal pain Disposition: HOME, SELF-CARE Condition: Improved Departure-Patient Inst. Decision time for Depature: 00:25 Referrals: NO,LOCAL PHYSICIAN (PCP/Family) Primary Care Physician Patient Instructions: MANAGING YOUR CHRONIC PAIN Add. Discharge Instructions: Drink plenty of clear liquids. Start your Protonix immediately. Contact your surgeon tomorrow morning to discuss your worsening pain. Avoid the following: Eating large meals, eating close to bedtime, caffeine, carbonation, citrus fruits and juices, tomato products, tobacco, alcohol, spicy foods, mints, NSAID medications such as ibuprofen or naproxen, fatty or greasy foods, chocolate, or anything else you know irritates your stomach. Return to the emergency room if you have worsening symptoms not responsive to these measures. All discharge instructions reviewed with patient and/or family. Voiced understanding. SELAM GIVENS MD Jul 04, 2019 00:30
[2019-07-04 00:48] VITALS: BP 100/79
--- NOTE | 2019-07-04 07:27 | Diagnostic Imaging Report ---
INDICATION: Abdominal pain. COMPARISON: CT abdomen and pelvis of 05/02/2019. FINDINGS: No free intraperitoneal air. Nonobstructive bowel gas pattern. There is air seen throughout the entire colon. Cholecystectomy clips are noted. Additionally, there are surgical changes in the epigastric region that appear stable. Normal regional skeleton. IMPRESSION: 1. Nonobstructive bowel gas pattern. 2. No free intraperitoneal air. Dictated by: Dictated on workstation # [id number]
== END 2019-07-04 00:49 | disposition home or self-care (01) ==
LOC: EDUNIT# 22:23 → ER 22:24
DX: G89.29 Other chronic pain (principal); R10.10 Upper abdominal pain, unspecified; J44.9 Chronic obstructive pulmonary disease, unspecified; G43.909 Migraine, unspecified, not intractable, without status migrainosus; G62.9 Polyneuropathy, unspecified; F41.9 Anxiety disorder, unspecified; F43.10 Post-traumatic stress disorder, unspecified; K21.9 Gastro-esophageal reflux disease without esophagitis; K58.9 Irritable bowel syndrome, unspecified; Z91.040 Latex allergy status; Z88.6 Allergy status to analgesic agent; Z88.5 Allergy status to narcotic agent; Z88.8 Allergy status to other drugs, medicaments and biological substances; Z79.51 Long term (current) use of inhaled steroids; Z77.22 Contact with and (suspected) exposure to environmental tobacco smoke (acute) (chronic); Z90.710 Acquired absence of both cervix and uterus; Z98.51 Tubal ligation status; Z82.49 Family history of ischemic heart disease and other diseases of the circulatory system
CPT/HCPCS: 36415; 74019; 80053; 80306; 80320; 81000; 82274; 83690; 83735; 85025; 85652; 86141; 96361; 96374; 96375